=== PATIENT | male | born 1960 | race Caucasian/White ===

== ENCOUNTER 2023-05-12 09:20 | Outpatient (OUT) | payer OTHER, SELFPAY ==
[2023-05-12 10:06] LABS: Basophils Absolute Auto 0.1 10^3/uL (0.0-0.1); Basophils Percent Auto 0.9 % (0.2-2.0); Eosinophils Absolute Auto 0.1 10^3/uL (0.0-0.7); Eosinophils Percent Auto 0.7 % (0.9-7.0); Hematocrit 42.9 % (42.0-54.0); Hemoglobin 13.9 g/dL (14.0-18.0); Immature Granulocytes Abs Auto 0.09 10^3/uL (0.00-0.03); Immature Granulocytes Pct Auto 0.8 % (0.0-0.5); Lymphocytes Absolute Auto 1.5 10^3/uL (1.2-3.8); Lymphocytes Percent Auto 13.5 % (20.5-60.0); Mean Corpuscular HGB Conc 32.4 g/dL (29.9-35.2); Mean Corpuscular Volume 89.6 fL (80.0-94.0); Mean Platelet Volume 9.2 fL (9.5-13.5); Monocytes Absolute Auto 0.8 10^3/uL (0.3-0.8); Monocytes Percent Auto 7.4 % (1.7-12.0); Neutrophils Absolute Auto 8.8 10^3/uL (1.4-6.5); Neutrophils Percent Auto 76.7 % (43.0-75.0); Platelet Count 413 10^3/uL (150-450); Red Blood Count 4.79 10^6/uL (4.70-6.10); Red Cell Distribution Width 13.8 % (11.0-15.0); White Blood Count 11.4 10^3/uL (4.0-11.0)
[2023-05-12 10:31] LABS: Estimated Average Glucose 123 mg/dL; Glycohemoglobin A1C 5.9 % (4.5-6.2)
[2023-05-12 10:42] LABS: Alanine Aminotransferase 62 U/L (16-63); Albumin Globulin Ratio 1.1; Albumin Level 4.1 g/dL (3.4-5.0); Alkaline Phosphatase 146 U/L (46-116); Anion Gap 11.3; Aspartate Amino Transferase 29 U/L (15-37); BUN Creatinine Ratio 8.8; Bilirubin Total 0.5 mg/dL (0.2-1.0); Calcium 9.3 mg/dL (8.5-10.1); Carbon Dioxide 30.1 mmol/L (21.0-32.0); Chloride 94 mmol/L (98-107); Chol HDL Ratio 4.2; Cholesterol 245 mg/dL (<=200); Estimated GFR (African America >60 (>=60); Estimated GFR (Non-African Ame >60 (>=60); Free T3 2.04 pg/mL (2.18-3.98); Globulin 3.8 g/dL; Glucose 92 mg/dL (74-106); HDL Cholesterol 58 mg/dL (40-60); Potassium 4.4 mmol/L (3.5-5.1); Sodium 131 mmol/L (136-145); Total Protein 7.9 g/dL (6.4-8.2); Triglycerides 157 mg/dL (<=150); VLDL CHOLESTEROL 31.4 mg/dL
[2023-05-12 10:50] LABS: Prostate Specific Antigen Scrn 1.34 ng/mL (<=4.00)
[2023-05-12 20:26] LABS: Occult Blood Negative
== END 2023-05-12 09:21 | disposition home or self-care (01) ==
LOC: LAB 09:24
PROVIDERS: PCP Family Medicine; Visit Provider Family Medicine
DX: Z00.00 Encounter for general adult medical examination without abnormal findings (principal); E78.5 Hyperlipidemia, unspecified; R73.09 Other abnormal glucose; Z12.5 Encounter for screening for malignant neoplasm of prostate; Z12.12 Encounter for screening for malignant neoplasm of rectum; R06.00 Dyspnea, unspecified
CPT/HCPCS: 36415; 80053; 80061; 83036; 84436; 84443; 84481; 85025; G0103; G0328

== ENCOUNTER 2023-05-14 08:50 | Outpatient (OUT) | payer OTHER, SELFPAY ==
--- OUTSIDE RECORDS SUMMARY | 2023-05-14 09:04 | XMS_ITS | CCD ---
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 Role Phone RBUCE, DR GALO Primary Care Unavailable ALCIRA, TERI Admitting Unavailable WEST, DR AILYN Marlow Consulting Unavailable ALCIRA, TERI Attending Unavailable ZIEBER, DR ANTONIO Archibald Consulting Unavailable ALCIRA, TERI Consulting Unavailable BROWNY, DR GALO Admitting Unavailable HOY, DR GALO Attending Unavailable HOY, DR GALO Primary Care Unavailable HOY, DR GALO Consulting Unavailable HOY, DR GALO Admitting Unavailable HOY, DR GALO Attending Unavailable HOY, DR GALO Admitting Unavailable HOY, DR GALO Primary Care Unavailable HOY, DR GALO Attending Unavailable HOY, DR GALO Consulting Unavailable HOY, DR GALO Admitting Unavailable HOY, DR GALO Attending Unavailable HOY, DR GALO Consulting Unavailable HOY, DR GALO Primary Care Unavailable WEST, DR AILYN Marlow Consulting Unavailable HOY, DR GALO Admitting Unavailable HOY, DR GALO Attending Unavailable HOY, DR GALO Consulting Unavailable HOY, DR GALO Primary Care Unavailable HOY, DR GALO Admitting Unavailable HOY, DR GALO Attending Unavailable HOY, DR GALO Consulting Unavailable Problems Active Problems Problem Classification Problem Date Documented Da te Episodic/Chronic Chronic obstructive pulmonary disease and bronchiectasis (1 source) Bronchitis, not specified as acute or chronic; Translations: [BRONCHITIS NOT SPEC ACUTE/CHRON] Onset: 11-03-2020 Episodic Unclassified (3 sources) CONTACT W/AND (SUSP) EXPOS COVID-19; Translations: [CONTACT W/AND (SUSP) EXPOS COVID-19] Onset: 11-03-2020 Past or Other Problems Problem Classification Problem Date Documented Da te Episodic/Chronic Immunizations and screening for infectious disease (5 sources) Contact with and (suspected) exposure to other viral communicable diseases; Translations: [CONTCT EXPS OTH VIRL COMMUNICABL DZ] Onset: 02-01-2020 Episodic Other lower respiratory disease (1 source) Dyspnea, unspecified; Translations: [DYSPNEA UNSPECIFIED] Onset: 02-10-2020 Episodic Other lower respiratory disease (4 sources) Shortness of breath; Translations: [SHORTNESS OF BREATH] Onset: 02-03-2020 Episodic Pneumonia (except that caused by tuberculosis or sexually transmitted disease) (1 source) Pneumonia, unspecified organism; Translations: [PNEUMONIA UNSPECIFIED ORGANISM] Onset: 02-10-2020 Episodic Unclassified (1 source) CONTACT W/AND (SUSP) EXPOS COVID-19; Translations: [CONTACT W/AND (SUSP) EXPOS COVID-19] Onset: 10-24-2020 Results Test Name Value Interpretation Reference Range Facil ity Covid-19 PCR (CVDTBH)on 10-06 SARS-CoV-2 (COVID-19) RNA FAIZAN+probe Ql (Unsp spec) Not detected Normal NOT DETECTED [facility] Comment on above: Result Comment: This test is not yet approved or cleared by the [place] FDA. When there are no FDA-approved or cleared tests available, and other criteria are met, FDA can make tests available under an emergency access mechanism called an Emergency Use Authorization (EUA). The EUA for this test is supported by the [place] of Health and Human Service's (HHS's) declaration that circumstances exist to justify the emergency use of in vitro diagnostics for the detection and/or diagnosis of the virus that causes COVID-19. This EUA will remain in effect (meaning this test can be used) for the duration of the COVID-19 declaration justifying emergency of IVDs, unless it is terminated or revoked by FDA (after which the test may no longer be used). When diagnostic testing is negative, the possibility of a false negative should be considered in the context of a patient's recent exposures and the presence of clinical signs and symptoms consistent with SARS-CoV-2. Performed By: #### B SPORTS MEDICINE SPECIALIST, CMP, TROP #### [facility] [address] [place] [address] Katarina Nielsen SYMPTOMATIC COVID-19 ANTIGEN on 10-24-2020 EUA Statement SEE BELOW Normal [facility] Comment on above: Result Comment: This test has not been FDA cleared or approved, but has been authorized by the FDA under an Emergency Use Authorization (EUA) for use by authorized laboratories certified under CLIA that meet the requirements to perform moderate or high complexity testing. This test has been authorized only for the detection of proteins from SARS-CoV-2, not for any other viruses or pathogens. The emergency use of this test is authorized for the duration of the declaration that circumstances exist justifying the authorization of emergency use of in vitro diagnostic tests for detection and/or diagnosis of Covid-19 under section 564(b)(1) of the Act, 21 U.S.C. 360bbb-3(b)(1), unless the declaration is terminated or authorization is revoked sooner. Performed By: #### B SPORTS MEDICINE SPECIALIST CMP, TROP #### [facility] [address] [place] [address] Katarina Nielsen SARS-CoV-2 (COVID-19) RNA FAIZAN+probe Ql (Unsp spec) Negative Normal NEGATIVE [facility] Comment on above: Performed By: #### B SPORTS MEDICINE SPECIALIST, CMP, TROP #### [facility] [address] [place] [address] Katarina Nielsen BNPon 02-08-2020 Natriuretic peptide B (Bld) [Mass/Vol] 228.0 pg/mL Normal <=900.0 [facility] Comment on above: Performed By: #### B SPORTS MEDICINE SPECIALIST, CMP, TROP #### [facility] [address] [place] [address] Katarina Nielsen CBC AUTO DIFFon 02-08-2020 BASO # 0.1 103/ul Normal 0.0-0.1 [facility] Comment on above: Performed By: #### B SPORTS MEDICINE SPECIALIST, CMP, TROP #### [facility] [address] [place] [address] Katarina Buenrostroen Basophils/100 WBC (Bld) 0.7 % Normal 0.2-2.0 [facility] Comment on above: Performed By: #### B SPORTS MEDICINE SPECIALIST, CMP, TROP #### [facility] [address] [place] [address] Katarina Nielsen EO # 0.1 103/ul Normal 0.0-0.7 [facility] Comment on above: Performed By: #### B SPORTS MEDICINE SPECIALIST, CMP, TROP #### [facility] [address] [place] [address] Katarina Gia Eosinophils/100 WBC (Bld) 0.6 % Critically low 0.9-7.0 [facility] Comment on above: Performed By: #### B SPORTS MEDICINE SPECIALIST, CMP, TROP #### [facility] [address] [place] [address] Katarina Gia Erythrocyte distribution width (RBC) [Ratio] 14.0 % Normal 11.0-15.0 [facility] Comment on above: Performed By: #### B SPORTS MEDICINE SPECIALIST, CMP, TROP #### [facility] [address] [place] [address] Katarina Gia Hematocrit (Bld) [Volume fraction] 45.7 % Normal 42.0-54.0 [facility] Comment on above: Performed By: #### B SPORTS MEDICINE SPECIALIST, CMP, TROP #### [facility] [address] [place] [address] Katarina Gia Hemoglobin (Bld) [Mass/Vol] 15.1 g/dL Normal 14.0-18.0 [facility] Comment on above: Performed By: #### B SPORTS MEDICINE SPECIALIST, CMP, TROP #### [facility] [address] [place] [address] Katarina Gia IG # 0.02 10e3/ul Normal 0.00-0.03 [facility] Comment on above: Performed By: #### B SPORTS MEDICINE SPECIALIST, CMP, TROP #### [facility] [address] [place] [address] Katarina Gia IG % 0.2 % Normal 0.0-0.5 [facility] Comment on above: Performed By: #### B SPORTS MEDICINE SPECIALIST, CMP, TROP #### [facility] [address] [place] [address] Katarina Gia LYMPH # 1.7 103/ul Normal 1.2-3.8 [facility] Comment on above: Performed By: #### B SPORTS MEDICINE SPECIALIST, CMP, TROP #### [facility] [address] [place] [address] Katarina Gia Lymphocytes/100 WBC (Bld) 16.7 % Critically low 20.5-60.0 [facility] Comment on above: Performed By: #### B SPORTS MEDICINE SPECIALIST, CMP, TROP #### [facility] [address] [place] [address] Katarinavictoria Nielsen MANUAL DIFF REQ NO Normal [facility] Comment on above: Performed By: #### B SPORTS MEDICINE SPECIALIST, CMP, TROP #### [facility] [address] [place] [address] Katarinavictoria Nielsen MCH (RBC) [Entitic mass] 29.6 pg Normal 25.9-34.0 [facility] Comment on above: Performed By: #### B SPORTS MEDICINE SPECIALIST, CMP, TROP #### [facility] [address] [place] [address] Katarinavictoria Nielsen MCHC (RBC) [Mass/Vol] 33.0 g/dL Normal 29.9-35.2 [facility] Comment on above: Performed By: #### B SPORTS MEDICINE SPECIALIST, CMP, TROP #### [facility] [address] [place] [address] Katarinavictoria Nielsen MCV (RBC) [Entitic vol] 89.6 fL Normal 80.0-94.0 [facility] Comment on above: Performed By: #### B SPORTS MEDICINE SPECIALIST, CMP, TROP #### [facility] [address] [place] [address] Katarina Gia MONO # 1.2 103/ul Critically high 0.3-0.8 [facility] Comment on above: Performed By: #### B SPORTS MEDICINE SPECIALIST, CMP, TROP #### [facility] [address] [place] [address] Katarina Gia Monocytes/100 WBC (Bld) 11.4 % Normal 1.7-12.0 [facility] Comment on above: Performed By: #### B SPORTS MEDICINE SPECIALIST, CMP, TROP #### [facility] [address] [place] [address] Katarina Gia NEUT # 7.1 103/ul Critically high 1.4-6.5 [facility] Comment on above: Performed By: #### B SPORTS MEDICINE SPECIALIST, CMP, TROP #### [facility] [address] [place] [address] Katarina Nielsen Neutrophils/100 WBC (Bld) 70.4 % Normal 43.0-75.0 [facility] Comment on above: Performed By: #### B SPORTS MEDICINE SPECIALIST, CMP, TROP #### [facility] [address] [address] Katarina Nielsen Platelet mean volume (Bld) [Entitic vol] 9.5 fL Normal 9.5-13.5 [facility] Comment on above: Performed By: #### B SPORTS MEDICINE SPECIALIST, CMP, TROP #### [facility] [address] [address] Katarina Buenrostroen PLT 339 103/ul Normal 150-450 [facility] Comment on above: Performed By: #### B SPORTS MEDICINE SPECIALIST, CMP, TROP #### [facility] [address] [address] Katarina Gia RBC 5.10 106/ul Normal 4.70-6.10 [facility] Comment on above: Performed By: #### B SPORTS MEDICINE SPECIALIST, CMP, TROP #### [facility] [address] [address] Katarina Nielsen WBC 10.1 103/ul Normal 4.0-11.0 [facility] Comment on above: Performed By: #### B SPORTS MEDICINE SPECIALIST, CMP, TROP #### [facility] [address] [id number] Katarina Nielsen CTA CHEST WO W CONon 020 CTA CHEST WO W CON EXAMINATION: CTA CHEST WO W CON HISTORY: SHORTNESS OF BREATH with exertion COMPARISON: No relevant comparison available. TECHNIQUE: Multi-planar CT images were created with 100 mL Omnipaque 350 IV contrast. Axial, Coronal, and Sagittal images. Dose reduction techniques were achieved by using automated exposure control and/or adjustment of mA and/or kV according to patient size and/or use of iterative reconstruction technique. FINDINGS: VASCULATURE: No pulmonary embolism or abnormal opacity. LUNGS: Moderate fibrous stranding and patchy opacities within the left lung apex. PLEURA: No mass, effusion, or pneumothorax. VIKI: Calcified right hilar lymph nodes. MEDIASTINUM: Calcified subcarinal lymph nodes. CARDIAC: No enlargement, pericardial effusion, or pericardial thickening. AORTA: No aneurysm or dissection. CHEST WALL: No mass or axillary adenopathy. BONES: No bone lesion or fracture. LIMITED ABDOMEN: Small area of poorly defined early enhancement within the posterior right hepatic lobe, nonspecific but most suggestive of a flash-fill hemangioma. OTHER: Negative. IMPRESSION: 1. No pulmonary embolism. 2. Moderate infiltrates versus interstitial changes within the left lung apex. Follow-up CT imaging of the chest in 1-2 months is recommended to document clearing. Electronically authenticated by: ANTONIO REDD Date: 2020-02-08 14:04 Normal [facility] PROF 14(COMP METB)on 020 Albumin [Mass/Vol] 3.7 g/dL Normal 3.5-5.0 [facility] Comment on above: Performed By: #### B SPORTS MEDICINE SPECIALIST, CMP, TROP #### [facility] [address] [place] [address] Katarina Gia Albumin/Globulin [Mass ratio] 1.1 {ratio} Normal [facility] Comment on above: Performed By: #### B SPORTS MEDICINE SPECIALIST, CMP, TROP #### [facility] [address] [address] Katarina Gia ALP [Catalytic activity/Vol] 72 U/L Normal 38-126 [facility] Comment on above: Performed By: #### B SPORTS MEDICINE SPECIALIST, CMP, TROP #### [facility] [address] [id number] Katarina Gia ALT [Catalytic activity/Vol] 43 U/L Normal 21-72 [facility] Comment on above: Performed By: #### B SPORTS MEDICINE SPECIALIST, CMP, TROP #### [facility] [address] [id number] Katarina Gia Anion gap [Moles/Vol] 13.1 mmol/L Normal [facility] Comment on above: Performed By: #### B SPORTS MEDICINE SPECIALIST, CMP, TROP #### [facility] [address] [id number] Katarina Gia AST [Catalytic activity/Vol] 31 U/L Normal 17-59 [facility] Comment on above: Performed By: #### B SPORTS MEDICINE SPECIALIST, CMP, TROP #### [facility] [address] [id number] Katarina Gia Bilirubin [Mass/Vol] 0.5 mg/dL Normal 0.2-1.3 [facility] Comment on above: Performed By: #### B SPORTS MEDICINE SPECIALIST, CMP, TROP #### [facility] [address] [place] [address] Katarina Gia Calcium [Mass/Vol] 9.2 mg/dL Normal 8.4-10.2 [facility] Comment on above: Performed By: #### B SPORTS MEDICINE SPECIALIST, CMP, TROP #### [facility] [address] [place] [address] Katarina Gia Chloride [Moles/Vol] 96 mmol/L Critically low 98-107 [facility] Comment on above: Performed By: #### B SPORTS MEDICINE SPECIALIST, CMP, TROP #### [facility] [address] [place] [address] Katarina Gia CO2 [Moles/Vol] 27.0 mmol/L Normal 22.0-30.0 [facility] Comment on above: Performed By: #### B SPORTS MEDICINE SPECIALIST, CMP, TROP #### [facility] [address] [place] [address] Katarina Gia Creatinine [Mass/Vol] 0.88 mg/dL Normal 0.66-1.25 [facility] Comment on above: Performed By: #### B SPORTS MEDICINE SPECIALIST, CMP, TROP #### [facility] [address] [place], [place] [id number] Katarina Gia EGFR-AF [place] >60 Normal >=60 [facility] Comment on above: Performed By: #### B SPORTS MEDICINE SPECIALIST, CMP, TROP #### [facility] [address] [place] [address] Katarina Gia EGFR-NON AF [place] >60 Normal >=60 [facility] Comment on above: Performed By: #### B SPORTS MEDICINE SPECIALIST, CMP, TROP #### [facility] [address] [place] [address] Katarina Gia Globulin (S) [Mass/Vol] 3.5 g/dL Normal [facility] Comment on above: Performed By: #### B SPORTS MEDICINE SPECIALIST, CMP, TROP #### [facility] [address] [place] [address] Katarina Gia Glucose [Mass/Vol] 93 mg/dL Normal 74-106 [facility] Comment on above: Performed By: #### B SPORTS MEDICINE SPECIALIST, CMP, TROP #### [facility] [address] [address] Katarina Gia Potassium [Moles/Vol] 4.1 mmol/L Normal 3.4-5.0 [facility] Comment on above: Performed By: #### B SPORTS MEDICINE SPECIALIST, CMP, TROP #### [facility] [address] [place] [address] Katarina Gia Protein [Mass/Vol] 7.2 g/dL Normal 6.1-8.2 [facility] Comment on above: Performed By: #### B SPORTS MEDICINE SPECIALIST, CMP, TROP #### [facility] [address] [place] [address] Katarina Gia Sodium [Moles/Vol] 132 mmol/L Critically low 137-145 [facility] Comment on above: Performed By: #### B SPORTS MEDICINE SPECIALIST, CMP, TROP #### [facility] [address] [place] [address] Katarina Gia Urea nitrogen [Mass/Vol] 13.0 mg/dL Normal 9.0-20.0 [facility] Comment on above: Performed By: #### B SPORTS MEDICINE SPECIALIST, CMP, TROP #### [facility] [address] [place] [address] Katarina Gia Urea nitrogen/Creatinine [Mass ratio] 14.8 mg/mg Normal [facility] Comment on above: Performed By: #### B SPORTS MEDICINE SPECIALIST, CMP, TROP #### [facility] [address] [place], [place] [phone] Katarina Gia PROTIMEon 02-08-2020 INR Coag (PPP) [Relative time] 0.97 {INR} Normal [facility] Comment on above: Performed By: #### B SPORTS MEDICINE SPECIALIST, CMP, TROP #### [facility] [address] [place], [place] [phone] Katarina Gia INR GUIDELINES SEE BELOW Normal [facility] Comment on above: Result Comment: TEENA RED INR: 2.0 - 3.0 CONDITIONS NOT LISTED BELOW 2.5 - 3.5 FOR PROSTHETIC HEART VALVE REPLACEMENT 2.5 - 3.5 RECURRENT THROMBOSIS Performed By: #### B SPORTS MEDICINE SPECIALIST, CMP, TROP #### [facility] [address] [place] [address] Katarinavictoria Nielsen PT Coag (PPP) [Time] 10.3 s Normal 9.0-11.6 [facility] Comment on above: Performed By: #### B SPORTS MEDICINE SPECIALIST, CMP, TROP #### [facility] [address] [place], [place] [phone] Katarina Gia PT NORMAL PLEASE NOTE: NORMAL RANGE CHANGE 12-23-2013 DUE TO REAGENT LOT CHANGE Normal [facility] Comment on above: Performed By: #### B SPORTS MEDICINE SPECIALIST, CMP, TROP #### [facility] [address] [place], [place] [phone] Katarina Nielsen PTTon 02-08-2020 aPTT Coag (Bld) [Time] 27.2 s Normal 22.3-36.2 [facility] Comment on above: Performed By: #### B SPORTS MEDICINE SPECIALIST, CMP, TROP #### [facility] [address] [place] [address] Katarinavictoria Nielsen PTT NORMAL PLEASE NOTE: NORMAL RANGE CHANGE 03-01-2015 DUE TO REAGENT LOT CHANGE Normal [facility] Comment on above: Performed By: #### B SPORTS MEDICINE SPECIALIST, CMP, TROP #### [facility] [address] [place], [place] [id number] Katarina Nielsen Rapid Covid-19 PCRon 020 [employer] LDT Info SEE BELOW Normal [facility] Comment on above: Result Comment: This test is not yet approved or cleared by the [place] Food and Drug Administration (FDA) . This test was developed by [employer] [place] [place]. The performance characteristics of this test were validated by [facility]. The results are not intended to be used as the sole means for clinical diagnosis or patient management decisions. [facility] is authorized under Clinical Laboratory Improvement Amendments (CLIA) to perform high-complexity testing. When diagnostic testing is negative, the possibility of a false negative should be considered in the context of a patients recent exposures and the presence of clinical signs and symptoms consistent with SARS-CoV-2. Performed By: #### B SPORTS MEDICINE SPECIALIST, CMP, TROP #### [facility] [address] [place] [address] SARS-CoV-2 (COVID-19) RNA FAIZAN+probe Ql (Unsp spec) Not detected Normal NOT DETECTED [facility] Comment on above: Result Comment: . Performed By: #### B SPORTS MEDICINE SPECIALIST, CMP, TROP #### [facility] [address] [place], [place] [address] TROPONIN - Ion 02-08-2020 TROP <0.012 Normal <=0.034 [facility] Comment on above: Performed By: #### B SPORTS MEDICINE SPECIALIST, CMP, TROP #### [facility] [address] [place] [address] TROPONIN RANGE SEE BELOW Normal [facility] Comment on above: Result Comment: <0.0 34 ng/ml NEGATIVE 0.034-0.119 INDETERMINATE 0.120 AMI CUT OFF Performed By: #### B SPORTS MEDICINE SPECIALIST, CMP, TROP #### [facility] [address] [place] [address] [facility] <0.012 Normal <=0.034 [facility] Comment on above: Performed By: #### B SPORTS MEDICINE SPECIALIST, CMP, TROP #### [facility] [address] [place] [address] [facility] TROPONIN RANGE SEE BELOW Normal [facility] Comment on above: Result Comment: <0.0 34 ng/ml NEGATIVE 0.034-0.119 INDETERMINATE 0.120 AMI CUT OFF Performed By: #### B SPORTS MEDICINE SPECIALIST, CMP, TROP #### [facility] [address] [place], [place] [address] XR CHEST 1 Von 02-08-2020 XR CHEST 1 V EXAMINATION: XR CHES T 1 V HISTORY: SHORTNESS OF BREATH COMPARISON: 01/18/2016 TECHNIQUE: AP portable erect FINDINGS: LUNGS: No significant pulmonary parenchymal abnormalities. Stable hyperinflation VASCULATURE: No increased pulmonary vasculature. PLEURA: No pneumothorax, effusion, or pleural thickening. CARDIAC: No cardiomegaly or cardiac silhouette abnormality. MEDIASTINUM: No visible mass or adenopathy. BONES: No fracture or visible bone lesion. OTHER: EKG wires IMPRESSION: Hyperinflation, clear lungs Electronically authenticated by: AILYN ROSE Date: 2020-02-08 12:14 Normal [facility] BNPon 02-03-2020 Natriuretic peptide B (Bld) [Mass/Vol] 81.0 pg/mL Normal <=900.0 [facility] Comment on above: Performed By: #### C MP, T4, TSH, BNP, FT3 #### [facility] [address] [place] [address] Katarina Gia CBC AUTO DIFFon 02-03-2020 BASO # 0.1 103/ul Normal 0.0-0.1 [facility] Comment on above: Performed By: #### B SPORTS MEDICINE SPECIALIST, CMP, TROP #### [facility] [address] [place] [address] Katarina Gia Basophils/100 WBC (Bld) 0.9 % Normal 0.2-2.0 [facility] Comment on above: Performed By: #### B SPORTS MEDICINE SPECIALIST, CMP, TROP #### [facility] [address] [place] [address] Katarina Gia EO # 0.1 103/ul Normal 0.0-0.7 [facility] Comment on above: Performed By: #### B SPORTS MEDICINE SPECIALIST, CMP, TROP #### [facility] Laboratory [address] [place] [address] Katarina Gia Eosinophils/100 WBC (Bld) 0.9 % Normal 0.9-7.0 [facility] Comment on above: Performed By: #### B SPORTS MEDICINE SPECIALIST, CMP, TROP #### [facility] Laboratory [address] [place] [address] Katarinavictoria Nielsen Erythrocyte distribution width (RBC) [Ratio] 14.2 % Normal 11.0-15.0 [facility] Comment on above: Performed By: #### B SPORTS MEDICINE SPECIALIST, CMP, TROP #### [facility] Laboratory [address] [place] [address] Katarina Gia Hematocrit (Bld) [Volume fraction] 45.1 % Normal 42.0-54.0 [facility] Comment on above: Performed By: #### B SPORTS MEDICINE SPECIALIST, CMP, TROP #### [facility] Laboratory [address] [place], [place] [address] Katarina Gia Hemoglobin (Bld) [Mass/Vol] 14.3 g/dL Normal 14.0-18.0 [facility] Comment on above: Performed By: #### B SPORTS MEDICINE SPECIALIST, CMP, TROP #### [facility] Laboratory [address] [address] Katarina Gia IG # 0.04 10e3/ul Critically high 0.00-0.03 [facility] Comment on above: Performed By: #### B SPORTS MEDICINE SPECIALIST, CMP, TROP #### [facility] [address] [id number] Katarina Gia IG % 0.5 % Normal 0.0-0.5 [facility] Comment on above: Performed By: #### B SPORTS MEDICINE SPECIALIST, CMP, TROP #### [facility] [address] [address] Katarina Gia LYMPH # 1.9 103/ul Normal 1.2-3.8 [facility] Comment on above: Performed By: #### B SPORTS MEDICINE SPECIALIST, CMP, TROP #### [facility] [address] [address] Katarina Gia Lymphocytes/100 WBC (Bld) 24.5 % Normal 20.5-60.0 [facility] Comment on above: Performed By: #### B SPORTS MEDICINE SPECIALIST, CMP, TROP #### [facility] [address] [id number] Katarina Gia MANUAL DIFF REQ NO Normal [facility] Comment on above: Performed By: #### B SPORTS MEDICINE SPECIALIST, CMP, TROP #### [facility] [address] [address] Katarina Gia MCH (RBC) [Entitic mass] 28.6 pg Normal 25.9-34.0 [facility] Comment on above: Performed By: #### B SPORTS MEDICINE SPECIALIST, CMP, TROP #### [facility] [address] [address] Katarina Gia MCHC (RBC) [Mass/Vol] 31.7 g/dL Normal 29.9-35.2 [facility] Comment on above: Performed By: #### B SPORTS MEDICINE SPECIALIST, CMP, TROP #### [facility] [address] [place], [place] [address] Katarina Gia MCV (RBC) [Entitic vol] 90.2 fL Normal 80.0-94.0 [facility] Comment on above: Performed By: #### B SPORTS MEDICINE SPECIALIST, CMP, TROP #### [facility] [address], [place] [address] Katarina Gia MONO # 1.0 103/ul Critically high 0.3-0.8 [facility] Comment on above: Performed By: #### B SPORTS MEDICINE SPECIALIST, CMP, TROP #### [facility] [address] [place], [place] [id number] Katarina Gia Monocytes/100 WBC (Bld) 12.4 % Critically high 1.7-12.0 [facility] Comment on above: Performed By: #### B SPORTS MEDICINE SPECIALIST, CMP, TROP #### [facility] [address] [place], [place] [id number] Katarina Gia NEUT # 4.8 103/ul Normal 1.4-6.5 [facility] Comment on above: Performed By: #### B SPORTS MEDICINE SPECIALIST, CMP, TROP #### [facility] [address] [place], [place] [id number] Katarina Gia Neutrophils/100 WBC (Bld) 60.8 % Normal 43.0-75.0 [facility] Comment on above: Performed By: #### B SPORTS MEDICINE SPECIALIST, CMP, TROP #### [facility] [address] [place], [place] [id number] Katarina Gia Platelet mean volume (Bld) [Entitic vol] 9.3 fL Critically low 9.5-13.5 [facility] Comment on above: Performed By: #### B SPORTS MEDICINE SPECIALIST, CMP, TROP #### [facility] [address] [place], [place] [id number] Katarina Gia PLT 323 103/ul Normal 150-450 [facility] Comment on above: Performed By: #### B SPORTS MEDICINE SPECIALIST, CMP, TROP #### [facility] [address] [place], [place] [id number] Katarina Gia RBC 5.00 106/ul Normal 4.70-6.10 [facility] Comment on above: Performed By: #### B SPORTS MEDICINE SPECIALIST, CMP, TROP #### [facility] [address] [place], [place] [address] Katarinavictoria Nielsen WBC 7.9 103/ul Normal 4.0-11.0 [facility] Comment on above: Performed By: #### B SPORTS MEDICINE SPECIALIST, CMP, TROP #### [facility] [address] [place] [address] Katarinavictoria Nielsen FREE T3on 02-03-2020 Free T3 [Mass/Vol] 2.89 pg/mL Normal 2.77-5.27 [facility] [place] [facility] Comment on above: Performed By: #### C MP, T4, TSH, BNP, FT3 #### [facility] [address] [place], [place] [phone] Katarina Nielsen PROF 14(COMP METB)on 020 Albumin [Mass/Vol] 3.8 g/dL Normal 3.5-5.0 [facility] Comment on above: Performed By: #### C MP, T4, TSH, BNP, FT3 #### [facility] [address] [place] [address] Katarina Nielsen Albumin/Globulin [Mass ratio] 1.2 {ratio} Normal [facility] Comment on above: Performed By: #### C MP, T4, TSH, BNP, FT3 #### [facility] [address] [place], [place] [phone] Katarina Gia ALP [Catalytic activity/Vol] 73 U/L Normal 38-126 [facility] Comment on above: Performed By: #### C MP, T4, TSH, BNP, FT3 #### [facility] [address] [place] [address] Katarinavictoria Nielsen ALT [Catalytic activity/Vol] 52 U/L Normal 21-72 [facility] Comment on above: Performed By: #### C MP, T4, TSH, BNP, FT3 #### [facility] [address] [place], [place] [phone] Katarina Gia Anion gap [Moles/Vol] 8.6 mmol/L Normal [facility] Comment on above: Performed By: #### C MP, T4, TSH, BNP, FT3 #### [facility] [address] [place] [address] Katarina Gia AST [Catalytic activity/Vol] 35 U/L Normal 17-59 [facility] Comment on above: Performed By: #### C MP, T4, TSH, BNP, FT3 #### [facility] [address] [place] [address] Katarina Gia Bilirubin [Mass/Vol] 0.4 mg/dL Normal 0.2-1.3 [facility] Comment on above: Performed By: #### C MP, T4, TSH, BNP, FT3 #### [facility] [address] [place] [address] Katarina Gia Calcium [Mass/Vol] 8.9 mg/dL Normal 8.4-10.2 [facility] [place] [facility] Comment on above: Performed By: #### C MP, T4, TSH, BNP, FT3 #### [facility] [address] [place] [address] Katarina Gia Chloride [Moles/Vol] 101 mmol/L Normal 98-107 [facility] Comment on above: Performed By: #### C MP, T4, TSH, BNP, FT3 #### [facility] [address] [place] [address] Katarina Gia CO2 [Moles/Vol] 32.9 mmol/L Critically high 22.0-30.0 [facility] Comment on above: Performed By: #### C MP, T4, TSH, BNP, FT3 #### [facility] [address] [place] [address] Katarina Gia Creatinine [Mass/Vol] 0.81 mg/dL Normal 0.66-1.25 [facility] Comment on above: Performed By: #### C MP, T4, TSH, BNP, FT3 #### [facility] [address] [place] [address] Katarina Gia EGFR-AF [place] >60 Normal >=60 [facility] Comment on above: Performed By: #### C MP, T4, TSH, BNP, FT3 #### [facility] [address] [place], [place] [address] Katarina Gia EGFR-NON AF [place] >60 Normal >=60 [facility] Comment on above: Performed By: #### C MP, T4, TSH, BNP, FT3 #### [facility] [address] [place] [address] Katarina Gia Globulin (S) [Mass/Vol] 3.3 g/dL Normal [facility] Comment on above: Performed By: #### C MP, T4, TSH, BNP, FT3 #### [facility] [address] [place] [address] Katarina Gia Glucose [Mass/Vol] 95 mg/dL Normal 74-106 [facility] [place] [facility] Comment on above: Performed By: #### C MP, T4, TSH, BNP, FT3 #### [facility] [address] [place] [address] Katarina Gia Potassium [Moles/Vol] 4.5 mmol/L Normal 3.4-5.0 [facility] Comment on above: Performed By: #### C MP, T4, TSH, BNP, FT3 #### [facility] [address] [place] [address] Katarina Gia Protein [Mass/Vol] 7.1 g/dL Normal 6.1-8.2 [facility] [place] [facility] Comment on above: Performed By: #### C MP, T4, TSH, BNP, FT3 #### [facility] [address] [place] [address] Katarina Gia Sodium [Moles/Vol] 138 mmol/L Normal 137-145 [facility] [place] [facility] Comment on above: Performed By: #### C MP, T4, TSH, BNP, FT3 #### [facility] [address] [place] [address] Katarina Gia Urea nitrogen [Mass/Vol] 13.0 mg/dL Normal 9.0-20.0 [facility] Comment on above: Performed By: #### C MP, T4, TSH, BNP, FT3 #### [facility] [address] [place] [address] Katarina Gia Urea nitrogen/Creatinine [Mass ratio] 16.0 mg/mg Normal [facility] Comment on above: Performed By: #### C MP, T4, TSH, BNP, FT3 #### [facility] [address] [place] [address] Katarina Nielsen T4on 02-03-2020 T4 [Mass/Vol] 6.20 ug/dL Normal 5.53-11.00 [facility] Comment on above: Performed By: #### C MP, T4, TSH, BNP, FT3 #### [facility] [address] [place] [address] Katarina Nielsen TSHon 02-03-2020 TSH 5.662 uIU/mL Critically high 0.470-4.680 [facility] [place] [facility] Comment on above: Performed By: #### B SPORTS MEDICINE SPECIALIST, CMP, TROP #### [facility] [address] [place] [address] TSH RANGE SEE BELOW Normal [facility] Comment on above: Result Comment: <0.3 4 UIU/ml HYPERTHYROID 0.34-5.60 UIU/ml EUTHYROID >5.60 UIU/ml HYPOTHYROID Performed By: #### B SPORTS MEDICINE SPECIALIST, CMP, TROP #### [facility] [address] [place] [address] [facility] 02-02-2020 SARS-CoV-2 (COVID-19) RNA FAIZAN+probe Ql (Unsp spec) Not detected Normal Not Detected [facility] Comment on above: Result Comment: This nucleic acid amplification test was developed and its performance characteristics determined by [employer]. Nucleic acid amplification tests include PCR and TMA. This test has not been FDA cleared or approved. This test has been authorized by FDA under an Emergency Use Authorization (EUA). This test is only authorized for the duration of time the declaration that circumstances exist justifying the authorization of the emergency use of in vitro diagnostic tests for detection of SARS-CoV-2 virus and/or diagnosis of COVID-19 infection under section 564(b)(1) of the Act, 21 U.S.C. 360bbb-3(b) (1), unless the authorization is terminated or revoked sooner. When diagnostic testing is negative, the possibility of a false negative result should be considered in the context of a patient's recent exposures and the presence of clinical signs and symptoms consistent with COVID-19. An individual without symptoms of COVID-19 and who is not shedding SARS-CoV-2 virus would expect to have a negative (not detected) result in this assay. Performed By: #### B SPORTS MEDICINE SPECIALIST, CMP, TROP #### [facility] [address], [place] [address] Katarina Nielsen NM STRESS/REST MULTIon 01-30 NM STRESS/REST MULTI Patient: LISSY GATES Exam Date: 01/31/2020 : 1960 Gender:M Ordering : DR CLOVER BARRERA . Admission #: [id number] Family : Order #: [id number] CLICK HERE TO VIEW EXAM RADIOLOGY REPORT PROCEDURE: RADIONUCLIDE IMAGING STRESS/REST MULTI COMPARISON: None. INDICATIONS: Dyspnea TECHNIQUE: Exam Description: Stress/Rest one day protocol gated SPECT Rest Imagin.5 mCi Tc-99m Cardiolite IV on 01/31/2020 Stress Imaging 30.5 mCi Tc-99m Cardiolite IV on 01/31/2020 Exercise Protocol: Isaias Heart Rate (bpm): Rest: 85 Max: 147 PMHR: 91 Blood Pressure: Rest: 156/92 Max: 192/94 Exercise Time: Minutes: 7 Seconds: 00 Stage Reached: Stage: 3 Mets 10.1 Symptoms: shortness of breath Rest and peak stress ECG findings were normal and the exercise portion of the study was normal per attending physician Dr. Brooks . For more details please see separate cardiac stress test report. FINDINGS: QUALITY OF STUDY: Excellent. PERFUSION DEFECT: None. LOCATION: N/A SIZE: N/A. SEVERITY: N/A. TYPE: N/A. WALL MOTION: Normal. LV SIZE: Normal. 99 mL. TID / TCD: None; 0.7 LVEF: Normal. Calculated EF 62%. SUMMARY: Myocardial perfusion imaging study is NORMAL. CONCLUSION: 1. Decreased activity identified on rest images in the inferior wall, RCA distribution. 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 Dictated by: Ailyn Rose MD on 01/31/2020 at 14:28 Approved by: Ailyn Rose MD on 01/31/2020 at 14:31 Normal [facility] COVID-19 PCRon 01-21-2020 SARS-CoV-2 (COVID-19) RNA FAIZAN+probe Ql (Unsp spec) Not detected Normal Not Detected [facility] Comment on above: Result Comment: This nucleic acid amplification test was developed and its performance characteristics determined by [employer]. Nucleic acid amplification tests include PCR and TMA. This test has not been FDA cleared or approved. This test has been authorized by FDA under an Emergency Use Authorization (EUA). This test is only authorized for the duration of time the declaration that circumstances exist justifying the authorization of the emergency use of in vitro diagnostic tests for detection of SARS-CoV-2 virus and/or diagnosis of COVID-19 infection under section 564(b)(1) of the Act, 21 U.S.C. 360bbb-3(b) (1), unless the authorization is terminated or revoked sooner. When diagnostic testing is negative, the possibility of a false negative result should be considered in the context of a patient's recent exposures and the presence of clinical signs and symptoms consistent with COVID-19. An individual without symptoms of COVID-19 and who is not shedding SARS-CoV-2 virus would expect to have a negative (not detected) result in this assay. Performed By: #### C VDPCR #### [facility] [address] [place], [place] [id number] Katarina Nielsen Encounters Encounter Date Encounter Type Care Provider Facility Start: 10-24-2020 End: 10-25-[address] CLOVER BARRERA Facility:[facility] Start: 03-05-[address] CLOVER BARRERA Facility :[facility] Start: 02-08-2020 End: 02-08-[address] CLOVER BARRERA Facility:[facility] Start: 02-03-2020 End: 02-04-[address] CLOVER BARRERA Facility:[facility] Start: 02-01-2020 End: 02-02-[address] CLOVER BARRERA Facility:[facility] Start: 01-31-2020 End: 02-01-[address] CLOVER BARRERA Facility:[facility] Start: 01-20-2020 End: 01-21-[address] CLOVER BARRERA Facility:[facility] Payers Date Payer Category Payer Unknown [id number] 2.16.84 [id number] 1960 Unknown [id number] 2.16.84 [id number] 1960 Unknown [id number] 2.16.84 [id number] 1960 Unknown [id number] 2.16.84 [id number] 1960 Unknown [id number] 2.16.84 [id number] 1960 Unknown [id number] 2.16.84 [id number] 1960 Unknown [id number] 2.16.84 [id number] 1959 Private Health Insurance [id number] Self-pay 1959 Unknown [id number] Summary Purpose Family History No Family History Records Found Advance Directives No Advanced Directives Records Found Additional Source Comments (unrecognized sect ion and content) No Status Records Found INFORMATION SOURCE (unrecogn ized section and content) DATE CREATED AUTHOR 11/10/2020 [facility] FOR RECORDS PERTAINING TO PATIENTS WHO ARE OR HAVE BEEN ENROLLED IN A CHEMICAL DEPENDENCY/SUBSTANCEABUSE PROGRAM, SOME INFORMATION MAY BE OMITTED. This clinical summary was aggregated from multiple sources. Caution should be exercised in using it in the provision of clinical care. This summary normalizes information from multiple sources, and as a consequence, information in this document may materially change the coding, format and clinical context of patient data. In addition, data may be omitted in some cases. CLINICAL DECISIONS SHOULD BE BASED ON THE PRIMARY CLINICAL RECORDS. [facility] [employer] provides no warranty or guarantee of the accuracy or completeness of information in this document.
--- NOTE | 2023-05-14 15:41 | P.STRESS_ITS ---
Stress Test Stress Test Requesting physician: Morgan Regan Procedure: Exercise stress test General Information: Reason for Stress Test: Dyspnea Cardiac History and Risk Factors: Former smoker Resting 12 - Lead Electrocardiogram: Rate & rhythm: Normal sinus at a rate of 67. Campbell: Normal T-waves: Inverted in aVL ST-segments: Normal Prior EKG 02/08/2020: Appears similar to current study, including inverted T- waves in aVL Stress Test: Protocol: Isaias protocol was followed but was aborted prior to reaching target heart rate due to dyspnea. Exercise capacity: Poor exercise capacity. Total exercise time of 1 minutes 30 seconds reached Isaias stage 1 at 1.7MPH, 10% grade, & 4.6 METs. Blood pressure: Initial: 166/104, Maximum: 196/114 Rate & rhythm: Patient remained in sinus rhythm during the exercise and recovery portions of the study.? The maximum heart rate was 106, which was 67% of the maximum predicted heart rate 79. Multiple PVCs were noted. ST-segments & T-waves: There were no T-wave changes and no ST-segment changes when compared to the baseline EKG. Patient response/symptoms: Patient complained of dyspnea, but unclear if repro ducible of chief complaint Interpretation: Non-diagnostic exercise stress test as patient could not achieve target heart rate due to dyspnea. Clinical correlation required.
== END 2023-05-14 08:51 | disposition home or self-care (01) ==
LOC: CARD 08:51
PROVIDERS: PCP Family Medicine; Visit Provider Family Medicine
DX: R06.00 Dyspnea, unspecified (principal)
CPT/HCPCS: 93017

== ENCOUNTER 2023-06-11 06:13 | Outpatient (OUT) | payer OTHER, SELFPAY ==
--- NOTE | 2023-06-11 | PCN_ITS ---
CARDIAC STRESS TEST Requesting Physician: Procedure Date: 06/11/2023 INDICATION: Abnormal EKG. METHODS: After risks, benefits, and alternatives were explained, written informed consent was obtained. The patient was connected to the appropriate hemodynamic and electrocardiographic monitoring. Lexiscan 0.4 mg was infused intravenously. He was monitored for the standard duration and discharged in a stable state. There were no complications. FINDINGS: HEMODYNAMICS: Resting blood pressure was 182/108, decreasing to 164/98. Resting heart rate was 59, increasing to a maximum of 99 beats per minute. No symptoms were reported. ELECTROCARDIOGRAPHY: Rest EKG: Sinus bradycardia, 56 beats per minute, sinus arrhythmia, otherwise normal EKG. During infusion and recovery: No significant arrhythmias, no significant ST-T wave changes. FINAL IMPRESSIONS: 1. No ischemic EKG changes seen on Lexiscan Cardiolite stress test. 2. Significant resting hypertension. 3. Nuclear images are to be read, interpreted and reported in a separate dictation. GOUVERNEUR HEALTHEmily
--- OUTSIDE RECORDS SUMMARY | 2023-06-11 06:14 | XMS_ITS | CCD ---
Author Name Unknown Address [facility] [facility] [address] [place] [address] Organization [facility] Care Team Providers Care Residential Finish Carpenter Name Role Phone BRUCE, DR GALO Primary Care Unavailable ALCIRA, TERI [...] Attending Unavailable HOY, DR GALO Consulting Unavailable EL[place]HAW[place], EHAB Attending Unavailable Problems Active Problems Problem Classification Problem Date Documented Date Episodic/Chronic Chronic obstructive pulmonary disease and bronchiectasis (1 source) Bronchitis, not specified as acute or chronic; Translations: [BRONCHITIS NOT SPEC ACUTE/CHRON] Onset: 11-03-2020 Episodic Essential hypertension (2 sources) Essential (primary) hypertension; Translations: [Essential (primary) hypertension] Onset: 05-26-2023 Chronic Other lower respiratory disease (2 sources) Other forms of dyspnea; Translations: [Other forms of dyspnea] Onset: 05-26-2023 Episodic Other screening for suspected conditions (not mental disorders or infectious disease) (2 sources) Abnormal electrocardiogram [ECG] [EKG]; Translations: [Abnormal electrocardiogram (ECG) (EKG)] Onset: 05-26-2023 Episodic Unclassified (3 sources) CONTACT W/AND (SUSP) [...] Name Value Interpretation Reference Range Facil ity Office Visiton 05-26-2023 Follow-up visit [id number] Lissy Samuel 1960 M Date Provider Department Center 05/26/2023 [id number], EHAB CARD [facility] Family History Problem Relation Age of Onset No Known Problems Mother No Known Problems Father Coronary artery disease Father's Brother Family Status - Relation Status Age at Mother Father Father's Brother Level of Service:[address] [place] OFFICE/OUTPATIENT NEW MODERATE MDM 45 MINUTES Normal [facility] Covid-19 PCR (CVDTB)on 10-06 SARS-CoV-2 (COVID-19) RNA FAIZAN+probe Ql (Unsp spec) Not detected Normal NOT DETECTED [facility] Comment on above: Result Comment: This test is not yet approved or cleared by the [place] FDA. When there are no FDA-approved or cleared tests available, and other criteria are met, FDA can make tests available under an emergency access mechanism called an Emergency Use Authorization (EUA). The EUA for this test is supported by the [place] of Health and Human Service's (HHS's) declaration [...] consistent with SARS-CoV-2. Performed By: #### B NUT PACKER, CMP, TROP #### [facility] [address] [place] [address] Katarina Nielsen SYMPTOMATIC COVID-19 ANTIGEN on 10-24-2020 EUA Statement SEE BELOW Normal [facility] Comment on above: Result Comment: This [...] is revoked sooner. Performed By: #### B NUT PACKER, CMP, TROP #### [facility] [address] [place] [address] Katarina Gia SARS-CoV-2 (COVID-19) RNA FAIZAN+probe Ql (Unsp spec) Negative Normal NEGATIVE [facility] Comment on above: Performed By: #### B NUT PACKER, CMP, TROP #### [facility] [address] [place] [address] Katarina Nielsen BNPon 02-08-2020 Natriuretic peptide B (Bld) [Mass/Vol] 228.0 pg/mL Normal <=900.0 [facility] Comment on above: Performed By: #### B NUT PACKER, CMP, TROP #### [facility] [address] [place] [address] Katarina Gia CBC AUTO DIFFon 02-08-2020 BASO # 0.1 103/ul Normal 0.0-0.1 [facility] Comment on above: Performed By: #### B NUT PACKER, CMP, TROP #### [facility] [address] [place] [address] Katarina Gia Basophils/100 WBC (Bld) 0.7 % Normal 0.2-2.0 [facility] Comment on above: Performed By: #### B NUT PACKER, CMP, TROP #### [facility] [address] [place] [address] Katarina Gia EO # 0.1 103/ul Normal 0.0-0.7 [facility] Comment on above: Performed By: #### B NUT PACKER, CMP, TROP #### [facility] [address] [place] [address] Katarina Gia Eosinophils/100 WBC (Bld) 0.6 % Critically low 0.9-7.0 [facility] Comment on above: Performed By: #### B NUT PACKER, CMP, TROP #### [facility] [address] [place] [address] Katarina Gia Erythrocyte distribution width (RBC) [Ratio] 14.0 % Normal 11.0-15.0 [facility] Comment on above: Performed By: #### B NUT PACKER, CMP, TROP #### [facility] [address] [place] [address] Katarina Gia Hematocrit (Bld) [Volume fraction] 45.7 % Normal 42.0-54.0 [facility] Comment on above: Performed By: #### B NUT PACKER, CMP, TROP #### [facility] [address] [place] [address] Katarina Gia Hemoglobin (Bld) [Mass/Vol] 15.1 g/dL Normal 14.0-18.0 [facility] Comment on above: Performed By: #### B NUT PACKER, CMP, TROP #### [facility] [address] [place], [place] [address] Katarina Gia IG # 0.02 10e3/ul Normal 0.00-0.03 [facility] Comment on above: Performed By: #### B NUT PACKER, CMP, TROP #### [facility] [address] [place] [id number] Katarina Gia IG % 0.2 % Normal 0.0-0.5 [facility] Comment on above: Performed By: #### B NUT PACKER, CMP, TROP #### [facility] [address] [place] [id number] Katarina Gia LYMPH # 1.7 103/ul Normal 1.2-3.8 [facility] Comment on above: Performed By: #### B NUT PACKER, CMP, TROP #### [facility] [address] [id number] Katarina Gia Lymphocytes/100 WBC (Bld) 16.7 % Critically low 20.5-60.0 [facility] Comment on above: Performed By: #### B NUT PACKER, CMP, TROP #### [facility] [address] [place] [id number] Katarina Gia MANUAL DIFF REQ NO Normal [facility] [place] [facility] Comment on above: Performed By: #### B NUT PACKER, CMP, TROP #### [facility] [address] [id number] Katarina Gia MCH (RBC) [Entitic mass] 29.6 pg Normal 25.9-34.0 [facility] Comment on above: Performed By: #### B NUT PACKER, CMP, TROP #### [facility] [address] [id number] Katarina Gia MCHC (RBC) [Mass/Vol] 33.0 g/dL Normal 29.9-35.2 [facility] Comment on above: Performed By: #### B NUT PACKER, CMP, TROP #### [facility] [address] [id number] Katarina Gia MCV (RBC) [Entitic vol] 89.6 fL Normal 80.0-94.0 [facility] Comment on above: Performed By: #### B NUT PACKER, CMP, TROP #### [facility] [address] [place] [address] Katarina Gia MONO # 1.2 103/ul Critically high 0.3-0.8 [facility] [place] [facility] Comment on above: Performed By: #### B NUT PACKER, CMP, TROP #### [facility] [address] [place] [address] Katarina Gia Monocytes/100 WBC (Bld) 11.4 % Normal 1.7-12.0 [facility] Comment on above: Performed By: #### B NUT PACKER, CMP, TROP #### [facility] [address] [place] [address] Katarina Gia NEUT # 7.1 103/ul Critically high 1.4-6.5 [facility] [place] [facility] Comment on above: Performed By: #### B NUT PACKER, CMP, TROP #### [facility] [address] [place] [address] Katarina Gia Neutrophils/100 WBC (Bld) 70.4 % Normal 43.0-75.0 [facility] Comment on above: Performed By: #### B NUT PACKER, CMP, TROP #### [facility] [address] [place], [place] [id number] Katarina Gia Platelet mean volume (Bld) [Entitic vol] 9.5 fL Normal 9.5-13.5 [facility] Comment on above: Performed By: #### B NUT PACKER, CMP, TROP #### [facility] [address] [place] [address] Katarina Gia PLT 339 103/ul Normal 150-450 [facility] Comment on above: Performed By: #### B NUT PACKER, CMP, TROP #### [facility] [address] [place], [place] [id number] Katarina Gia RBC 5.10 106/ul Normal 4.70-6.10 [facility] Comment on above: Performed By: #### B NUT PACKER, CMP, TROP #### [facility] [address] [place] [address] Katarina Gia WBC 10.1 103/ul Normal 4.0-11.0 [facility] Comment on above: Performed By: #### B NUT PACKER, CMP, TROP #### [facility] [address] [place], [place] [address] Katarina Gia CTA CHEST WO W CONon 020 CTA [...] by: ANTONIO REDD Date: 2020-02-08 14:04 Normal [facility] PROF 14(COMP METB)on 020 Albumin [Mass/Vol] 3.7 g/dL Normal 3.5-5.0 [facility] Comment on above: Performed By: #### B NUT PACKER, CMP, TROP #### [facility] [address] [place], [place] [address] Katarina Nielsen Albumin/Globulin [Mass ratio] 1.1 {ratio} Normal [facility] Comment on above: Performed By: #### B NUT PACKER, CMP, TROP #### [facility] [address] [place], [place] [address] Katarina Gia ALP [Catalytic activity/Vol] 72 U/L Normal 38-126 [facility] Comment on above: Performed By: #### B NUT PACKER, CMP, TROP #### [facility] [address] [place] [address] Katarina Gia ALT [Catalytic activity/Vol] 43 U/L Normal 21-72 [facility] Comment on above: Performed By: #### B NUT PACKER, CMP, TROP #### [facility] [address] [place] [address] Katarina Gia Anion gap [Moles/Vol] 13.1 mmol/L Normal [facility] Comment on above: Performed By: #### B NUT PACKER, CMP, TROP #### [facility] [address] [place] [address] Katarina Gia AST [Catalytic activity/Vol] 31 U/L Normal 17-59 [facility] Comment on above: Performed By: #### B NUT PACKER, CMP, TROP #### [facility] [address] [place] [address] Katarina Gia Bilirubin [Mass/Vol] 0.5 mg/dL Normal 0.2-1.3 [facility] Comment on above: Performed By: #### B NUT PACKER, CMP, TROP #### [facility] [address] [place] [address] Katarina Gia Calcium [Mass/Vol] 9.2 mg/dL Normal 8.4-10.2 [facility] Comment on above: Performed By: #### B NUT PACKER, CMP, TROP #### [facility] [address] [place] [address] Katarina Gia Chloride [Moles/Vol] 96 mmol/L Critically low 98-107 [facility] Comment on above: Performed By: #### B NUT PACKER, CMP, TROP #### [facility] [address] [place] [address] Katarina Gia CO2 [Moles/Vol] 27.0 mmol/L Normal 22.0-30.0 [facility] Comment on above: Performed By: #### B NUT PACKER, CMP, TROP #### [facility] [address] [place], [place] [id number] Katarina Gia Creatinine [Mass/Vol] 0.88 mg/dL Normal 0.66-1.25 [facility] Comment on above: Performed By: #### B NUT PACKER, CMP, TROP #### [facility] [address] [place] [id number] Katarina Gia EGFR-AF [place] >60 Normal >=60 [facility] Comment on above: Performed By: #### B NUT PACKER, CMP, TROP #### [facility] [address] [place] [id number] Katarina Gia EGFR-NON AF [place] >60 Normal >=60 [facility] Comment on above: Performed By: #### B NUT PACKER, CMP, TROP #### [facility] [address] [place], [place] [id number] Katarina Gia Globulin (S) [Mass/Vol] 3.5 g/dL Normal [facility] Comment on above: Performed By: #### B NUT PACKER, CMP, TROP #### [facility] [address] [place] [address] Katarina Gia Glucose [Mass/Vol] 93 mg/dL Normal 74-106 [facility] Comment on above: Performed By: #### B NUT PACKER, CMP, TROP #### [facility] [address] [place] [address] Katarina Gia Potassium [Moles/Vol] 4.1 mmol/L Normal 3.4-5.0 [facility] Comment on above: Performed By: #### B NUT PACKER, CMP, TROP #### [facility] [address] [place], [place] [id number] Katarina Gia Protein [Mass/Vol] 7.2 g/dL Normal 6.1-8.2 [facility] Comment on above: Performed By: #### B NUT PACKER, CMP, TROP #### [facility] [address] [place] [address] Katarina Gia Sodium [Moles/Vol] 132 mmol/L Critically low 137-145 [facility] Comment on above: Performed By: #### B NUT PACKER, CMP, TROP #### [facility] [address] [place], [place] [id number] Katarina Gia Urea nitrogen [Mass/Vol] 13.0 mg/dL Normal 9.0-20.0 [facility] Comment on above: Performed By: #### B NUT PACKER, CMP, TROP #### [facility] [address] [place] [address] Katarinavictoria Buenrostroen Urea nitrogen/Creatinin e [Mass ratio] 14.8 mg/mg Normal [facility] Comment on above: Performed By: #### B NUT PACKER, CMP, TROP #### [facility] [address] [place] [address] Katarina Gia PROTIMEon 02-08-2020 INR Coag (PPP) [Relative time] 0.97 {INR} Normal [facility] Comment on above: Performed By: #### B NUT PACKER, CMP, TROP #### [facility] [address] [place] [address] Katarina Gia INR GUIDELINES SEE BELOW Normal [facility] Comment on above: Result Comment: TEENA RED INR: 2.0 - 3.0 CONDITIONS NOT LISTED BELOW 2.5 - 3.5 FOR PROSTHETIC HEART VALVE REPLACEMENT 2.5 - 3.5 RECURRENT THROMBOSIS Performed By: #### B NUT PACKER, CMP, TROP #### [facility] [address] [place] [address] Katarina Gia PT Coag (PPP) [Time] 10.3 s Normal 9.0-11.6 [facility] Comment on above: Performed By: #### B NUT PACKER, CMP, TROP #### [facility] [address] [place] [address] Katarina Gia PT NORMAL PLEASE NOTE: NORMAL RANGE CHANGE 12-23-2013 DUE TO REAGENT LOT CHANGE Normal [facility] Comment on above: Performed By: #### B NUT PACKER, CMP, TROP #### [facility] [address] [place], [place] [id number] Katarina Gia PTTon 02-08-2020 aPTT Coag (Bld) [Time] 27.2 s Normal 22.3-36.2 [facility] Comment on above: Performed By: #### B NUT PACKER, CMP, TROP #### [facility] [address] [place] [address] Katarina Gia PTT NORMAL PLEASE NOTE: NORMAL RANGE CHANGE 03-01-2015 DUE TO REAGENT LOT CHANGE Normal [facility] Comment on above: Performed By: #### B NUT PACKER, CMP, TROP #### [facility] [address] [place] [address] Katarina Nielsen Rapid Covid-19 PCRon 020 [employer] LDT Info SEE BELOW Normal [facility] Comment on above: Result Comment: This test is not yet approved or cleared by the [place] Food and Drug Administration (FDA) . This test was developed by [employer]. The performance characteristics of this test were validated by [facility]. The results are not intended to be used as the sole means for clinical diagnosis or patient management decisions. [facility] is authorized under Clinical Laboratory Improvement Amendments (CLIA) to perform high-complexity testing. When diagnostic testing is negative, the possibility of a false negative should be considered in the context of a patients recent exposures and the presence of clinical signs and symptoms consistent with SARS-CoV-2. Performed By: #### B NUT PACKER, CMP, TROP #### [facility] [address] [place] [address] Katarina Nielsen SARS-CoV-2 (COVID-19) RNA FAIZAN+probe Ql (Unsp spec) Not detected Normal NOT DETECTED [facility] Comment on above: Result Comment: . Performed By: #### B NUT PACKER, CMP, TROP #### [facility] [address] [place] [address] Katarina Nielsen TROPONIN - Ion 02-08-2020 TROP <0.012 Normal <=0.034 [facility] Comment on above: Performed By: #### B NUT PACKER, CMP, TROP #### [facility] [address] [place] [address] Katarina Nielsen TROPONIN RANGE SEE BELOW Normal [facility] Comment on above: Result Comment: <0.0 34 ng/ml NEGATIVE 0.034-0.119 INDETERMINATE 0.120 AMI CUT OFF Performed By: #### B NUT PACKER, CMP, TROP #### [facility] [address] [place] [address] Katarina Gia TROP <0.012 Normal <=0.034 [facility] Comment on above: Performed By: #### B NUT PACKER, CMP, TROP #### [facility] [address] [place], [place] [address] Katarinavictoria Buenrostroen TROPONIN RANGE SEE BELOW Normal [facility] Comment on above: Result Comment: <0.0 34 ng/ml NEGATIVE 0.034-0.119 INDETERMINATE 0.120 AMI CUT OFF Performed By: #### B NUT PACKER, CMP, TROP #### [facility] [address] [place], [place] [address] Katarinavictoria Nielsen XR CHEST 1 Von 02-08-2020 XR CHEST 1 V EXAMINATION: XR CHEST 1 V HISTORY: SHORTNESS OF BREATH COMPARISON: [...] AILYN ROSE Date: 2020-02-08 12:14 Normal [facility] BNPon 02-03-2020 Natriuretic peptide B (Bld) [Mass/Vol] 81.0 pg/mL Normal <=900.0 [facility] Comment on above: Performed By: #### C MP, T4, TSH, BNP, FT3 #### [facility] [address] [place] [id number] Katarina Nielsen CBC AUTO DIFFon 02-03-2020 BASO # 0.1 103/ul Normal 0.0-0.1 [facility] Comment on above: Performed By: #### B NUT PACKER, CMP, TROP #### [facility] [address] [place], [place] [address] Katarina Nielsen Basophils/100 WBC (Bld) 0.9 % Normal 0.2-2.0 [facility] Comment on above: Performed By: #### B NUT PACKER, CMP, TROP #### [facility] [address] [place] [id number] Katarina Gia EO # 0.1 103/ul Normal 0.0-0.7 [facility] Comment on above: Performed By: #### B NUT PACKER, CMP, TROP #### [facility] [address] [place] [address] Katarina Gia Eosinophils/100 WBC (Bld) 0.9 % Normal 0.9-7.0 [facility] Comment on above: Performed By: #### B NUT PACKER, CMP, TROP #### [facility] [address] [place] [address] Katarina Gia Erythrocyte distribution width (RBC) [Ratio] 14.2 % Normal 11.0-15.0 [facility] Comment on above: Performed By: #### B NUT PACKER, CMP, TROP #### [facility] [address] [place] [address] Katarina Gia Hematocrit (Bld) [Volume fraction] 45.1 % Normal 42.0-54.0 [facility] Comment on above: Performed By: #### B NUT PACKER, CMP, TROP #### [facility] [address] [place] [address] Katarina Gia Hemoglobin (Bld) [Mass/Vol] 14.3 g/dL Normal 14.0-18.0 [facility] Comment on above: Performed By: #### B NUT PACKER, CMP, TROP #### [facility] [address] [place] [address] Katarina Gia IG # 0.04 10e3/ul Critically high 0.00-0.03 [facility] Comment on above: Performed By: #### B NUT PACKER, CMP, TROP #### [facility] [address] [place] [address] Katarina Gia IG % 0.5 % Normal 0.0-0.5 [facility] Comment on above: Performed By: #### B NUT PACKER, CMP, TROP #### [facility] [address] [place] [address] Katarina Gia LYMPH # 1.9 103/ul Normal 1.2-3.8 [facility] Comment on above: Performed By: #### B NUT PACKER, CMP, TROP #### [facility] [address] [place] [address] Katarina Gia Lymphocytes/100 WBC (Bld) 24.5 % Normal 20.5-60.0 [facility] Comment on above: Performed By: #### B NUT PACKER, CMP, TROP #### [facility] [address] [place] [address] Katarina Gia MANUAL DIFF REQ NO Normal [facility] [place] [facility] Comment on above: Performed By: #### B NUT PACKER, CMP, TROP #### [facility] [address] [place] [address] Katarinavictoria Nielsen MCH (RBC) [Entitic mass] 28.6 pg Normal 25.9-34.0 [facility] Comment on above: Performed By: #### B NUT PACKER, CMP, TROP #### [facility] [address] [place] [address] Katarinavictoria Nielsen MCHC (RBC) [Mass/Vol] 31.7 g/dL Normal 29.9-35.2 [facility] Comment on above: Performed By: #### B NUT PACKER, CMP, TROP #### [facility] [address] [place] [address] Katarinavictoria Nielsen MCV (RBC) [Entitic vol] 90.2 fL Normal 80.0-94.0 [facility] Comment on above: Performed By: #### B NUT PACKER, CMP, TROP #### [facility] [address] [place] [address] Katarina Gia MONO # 1.0 103/ul Critically high 0.3-0.8 [facility] [place] [facility] Comment on above: Performed By: #### B NUT PACKER, CMP, TROP #### [facility] [address] [place] [address] Katarinavictoria Nielsen Monocytes/100 WBC (Bld) 12.4 % Critically high 1.7-12.0 [facility] Comment on above: Performed By: #### B NUT PACKER, CMP, TROP #### [facility] [address] [place] [address] Katarina Gia NEUT # 4.8 103/ul Normal 1.4-6.5 [facility] Comment on above: Performed By: #### B NUT PACKER, CMP, TROP #### [facility] [address] [place], [place] [address] Katarina Nielsen Neutrophils/100 WBC (Bld) 60.8 % Normal 43.0-75.0 [facility] Comment on above: Performed By: #### B NUT PACKER, CMP, TROP #### [facility] [address] [place] [id number] Katarinavictoria Nielsen Platelet mean volume (Bld) [Entitic vol] 9.3 fL Critically low 9.5-13.5 [facility] Comment on above: Performed By: #### B NUT PACKER, CMP, TROP #### [facility] [address] [place], [place] [address] Katarina Gia PLT 323 103/ul Normal 150-450 [facility] Comment on above: Performed By: #### B NUT PACKER, CMP, TROP #### [facility] [address] [place], [place] [address] Katarinavictoria Nielsen RBC 5.00 106/ul Normal 4.70-6.10 [facility] Comment on above: Performed By: #### B NUT PACKER, CMP, TROP #### [facility] [address] [place], [place] [address] Katarinavictoria Nielsen WBC 7.9 103/ul Normal 4.0-11.0 [facility] Comment on above: Performed By: #### B NUT PACKER, CMP, TROP #### [facility] [address] [place], [place] [address] Katarina Nielsen FREE T3on 02-03-2020 Free T3 [Mass/Vol] 2.89 pg/mL Normal 2.77-5.27 [facility] Comment on above: Performed By: #### C MP, T4, TSH, BNP, FT3 #### [facility] [address] [place], [place] [id number] Katarina Nielsen PROF 14(COMP METB)on 020 Albumin [Mass/Vol] 3.8 g/dL Normal 3.5-5.0 [facility] Comment on above: Performed By: #### C MP, T4, TSH, BNP, FT3 #### [facility] [address] [place], [place] [id number] Katarina Gia Albumin/Globulin [Mass ratio] 1.2 {ratio} Normal [facility] Comment on above: Performed By: #### C MP, T4, TSH, BNP, FT3 #### [facility] [address] [place] [address] Katarina Gia ALP [Catalytic activity/Vol] 73 U/L Normal 38-126 [facility] Comment on above: Performed By: #### C MP, T4, TSH, BNP, FT3 #### [facility] [address] [place] [address] Katarina Gia ALT [Catalytic activity/Vol] 52 U/L Normal 21-72 [facility] Comment on above: Performed By: #### C MP, T4, TSH, BNP, FT3 #### [facility] [address] [place] [address] Katarina Gia Anion gap [Moles/Vol] 8.6 mmol/L Normal [facility] Comment on above: Performed By: #### C MP, T4, TSH, BNP, FT3 #### [facility] [address] [place] [address] Katarina Gia AST [Catalytic activity/Vol] 35 U/L Normal 17-59 [facility] Comment on above: Performed By: #### C MP, T4, TSH, BNP, FT3 #### [facility] [address] [place] [address] Katarina Gia Bilirubin [Mass/Vol] 0.4 mg/dL Normal 0.2-1.3 [facility] Comment on above: Performed By: #### C MP, T4, TSH, BNP, FT3 #### [facility] [address] [place] [address] Katarina Gia Calcium [Mass/Vol] 8.9 mg/dL Normal 8.4-10.2 [facility] Comment on above: Performed By: #### C MP, T4, TSH, BNP, FT3 #### [facility] [address] [place] [address] Katarina Gia Chloride [Moles/Vol] 101 mmol/L Normal 98-107 [facility] Comment on above: Performed By: #### C MP, T4, TSH, BNP, FT3 #### [facility] [address] [place] [address] Katarina Gia CO2 [Moles/Vol] 32.9 mmol/L Critically high 22.0-30.0 [facility] Comment on above: Performed By: #### C MP, T4, TSH, BNP, FT3 #### [facility] [address] [place] [address] Katarina Gia Creatinine [Mass/Vol] 0.81 mg/dL Normal 0.66-1.25 [facility] Comment on above: Performed By: #### C MP, T4, TSH, BNP, FT3 #### [facility] [address] [place] [address] Katarina Gia EGFR-AF [place] >60 Normal >=60 [facility] Comment on above: Performed By: #### C MP, T4, TSH, BNP, FT3 #### [facility] [address] [place] [address] Katarina Gia EGFR-NON AF [place] >60 Normal >=60 [facility] Comment on above: Performed By: #### C MP, T4, TSH, BNP, FT3 #### [facility] [address] [place] [address] Katarina Gia Globulin (S) [Mass/Vol] 3.3 g/dL Normal [facility] Comment on above: Performed By: #### C MP, T4, TSH, BNP, FT3 #### [facility] [address] [place] [address] Katarina Gia Glucose [Mass/Vol] 95 mg/dL Normal 74-106 [facility] Comment on above: Performed By: #### C MP, T4, TSH, BNP, FT3 #### [facility] [address] [place] [address] Katarina Gia Potassium [Moles/Vol] 4.5 mmol/L Normal 3.4-5.0 [facility] Comment on above: Performed By: #### C MP, T4, TSH, BNP, FT3 #### [facility] [address] [place] [address] Katarina Gia Protein [Mass/Vol] 7.1 g/dL Normal 6.1-8.2 [facility] Comment on above: Performed By: #### C MP, T4, TSH, BNP, FT3 #### [facility] [address] [place] [address] Katarina Gia Sodium [Moles/Vol] 138 mmol/L Normal 137-145 [facility] Comment on above: Performed By: #### C MP, T4, TSH, BNP, FT3 #### [facility] [address] [place] [address] Katarina Gia Urea nitrogen [Mass/Vol] 13.0 mg/dL Normal 9.0-20.0 [facility] Comment on above: Performed By: #### C MP, T4, TSH, BNP, FT3 #### [facility] [address] [place] [address] Katarina Gia Urea nitrogen/Creatinin e [Mass ratio] 16.0 mg/mg Normal [facility] Comment on above: Performed By: #### C MP, T4, TSH, BNP, FT3 #### [facility] [address] [place] [address] Katarinavictoria Buenrostroen T4on 02-03-2020 T4 [Mass/Vol] 6.20 ug/dL Normal 5.53-11.00 [facility] Comment on above: Performed By: #### C MP, T4, TSH, BNP, FT3 #### [facility] [address] [place] [address] Katarina Gia TSHon 02-03-2020 TSH 5.662 uIU/mL Critically high 0.470-4.680 [facility] Comment on above: Performed By: #### B NUT PACKER, CMP, TROP #### [facility] [address] [place] [address] Katarina Gia TSH RANGE SEE BELOW Normal [facility] Comment on above: Result Comment: <0.3 4 UIU/ml HYPERTHYROID 0.34-5.60 UIU/ml EUTHYROID >5.60 UIU/ml HYPOTHYROID Performed By: #### B NUT PACKER, CMP, TROP #### [facility] [address] [place], [place] [address] Katarina Nielsen COVID-19 PCRon 02-02-2020 SARS-CoV-2 (COVID-19) RNA FAIZAN+probe Ql (Unsp spec) Not detected Normal Not Detected [facility] Comment on above: Result Comment: This nucleic acid amplification test was developed and its performance characteristics determined by [employer]. Nucleic acid amplification tests include PCR and [...] in this assay. Performed By: #### B NUT PACKER, CMP, TROP #### [facility] [address] [place], [place] [address] Katarina Nielsen NM STRESS/REST MULTIon 01-30 NM STRESS/REST MULTI Patient: LISSY SAMUEL Exam Date: 01/31/2020 : 1960 Gender:M Ordering : DR CLOVER REGAN . Admission #: [id number] Family : Order #: [id number] CLICK HERE TO VIEW EXAM RADIOLOGY REPORT [...] MD on 01/31/2020 at 14:31 Normal [facility] COVID-19 PCRon 01-21-2020 SARS-CoV-2 (COVID-19) RNA FAIZAN+probe Ql (Unsp spec) Not detected Normal Not Detected [facility] Comment on above: Result Comment: This nucleic acid amplification test was developed and its performance characteristics determined by [employer]. Nucleic acid amplification tests include PCR and [...] assay. Performed By: #### C VDPCR #### [facility] [address] [place], [place] [address] Katarina Nielsen Encounters Encounter Date Encounter Type Care Provider Facility Start: 05-26-2023 End: 05-26-2023 ambulatory [facility] Start: 10-24-2020 End: 10-25-[address] CLOVER REGAN Facility:[facility] Start: 03-05-[address] CLOVER REGAN Facility :[facility] Start: 02-08-2020 End: 02-08-[address] CLOVER REGAN Facility:[facility] Start: 02-03-2020 End: 02-04-[address] CLOVER REGAN Facility:[facility] Start: 02-01-2020 End: 02-02-[address] CLOVER REGAN Facility:[facility] Start: 01-31-2020 End: 02-01-[address] CLOVER REGAN Facility:[facility] Start: 01-20-2020 End: 01-21-[address] CLOVER REGAN Facility:[facility] Payers Date Payer Category Payer Unknown [id number] 2.16.84 [id number] 1960 Unknown [id number] 2.16.84 [id number] 1960 Unknown [id number] 2.16.84 [id number] 1960 Unknown [id number] 2.16.84 [id number] 1960 Unknown [id number] 2.16.84 [id number] 1960 Unknown [id number] 2.16.84 [id number] 1960 Unknown [id number] 2.16.84 [id number] 1959 Private Health Insurance [id number] 1959 Self-pay 1959 Unknown [id number] Progress note 05-26-2023 Note Date & Type Note Facility 05-26-2023 Note [facility] Cardiology Clinic Note Chief Complaint: New patient here to establish care. Ref from Dr. Regan for abnormal stress test, ordered for dyspnea on exertion. Had blood work a few weeks ago and was started on thyroid meds and simvastatin. States his BP is always high when he checks his BP at home, as it averages around 160/80's. He currently does not take antihypertensive medications and never has. He denies chest pain, palpitations, and lightheadedness/syncope. HPI: Lissy Samuel is a 63 y.o. male with hypothyroidism, untreated hypertension, who is an ex-smoker He has noticed progressively worsening exertional shortness of breath over the past 6 months or so. He states that he can barely walk from his car to the office without feeling dyspnea on exertion. He noticed this when he was shoveling snow over the winter. He denies chest pain or chest pressure. He has had no significant palpitations, lightheadedness, dizziness or syncope. He has no orthopnea, paroxysmal external dyspnea or lower extremity edema SOCIAL Hx: He drinks alcohol socially, he used to smoke but quit 11 years ago. Family History: No premature coronary artery disease in any first-degree relatives Cardiology ROS: Review of Systems Cardiovascular: Positive for dyspnea on exertion. Musculoskeletal: Positive for back pain. All other systems reviewed and are negative. Past Medical History He has no past medical history on file. Surgical History He has no past surgical history on file. Social History He has no history on file for tobacco use, alcohol use, and drug use. Family History No family history on file. Allergies Patient has no allergy information on record. Medications No current outpatient medications on file. Last Recorded Vitals BP 160/90 (BP Location: Left arm, Patient Position: Sitting) Pulse 73 Ht 1.88 m (6' 2 ) Wt 88 kg (194 lb) SpO2 96% BMI 24.91 kg/m??? Physical Examination: GENERAL: alert and oriented x3, well developed, in no acute distress. HEAD: atraumatic, normocephalic. EYES: MANDY, EOMI. NECK: trachea midline, no JVD present, no carotid bruits present. CARDIAC: S1, S2 present. RRR. No murmur, rubs, or gallops. RESPIRATORY: CTAB, no increased effort of breathing, no rales, rhonchi, or wheezing. ABDOMEN: soft, nontender, nondistended. EXTREMITIES: no lower extremity edema, peripheral pulses are 2+ bilaterally. No rash/skin discoloration present. NEURO: strength/sensation equal and symmetric in bilateral upper and lower extremities. PSYCH: appropriate mood, affect, and judgement. Investigations: Stress Test Stress Test Requesting physician: Clover Regan Procedure: Exercise stress test General Information: Reason for Stress Test: Dyspnea Cardiac History and Risk Factors: Former smoker Resting 12 - Lead Electrocardiogram: Rate & rhythm: Normal sinus at a rate of 67. [place]: Normal T-waves: Inverted in aVL ST-segments: Normal Prior EKG 02/08/2020: Appears similar to current study, including inverted T-waves in aVL Stress Test: Protocol: Isaias protocol was followed but was aborted prior to reaching target heart rate due to dyspnea. Exercise capacity: Poor exercise capacity. Total exercise time of 1 minutes 30 seconds reached Isaias stage 1 at 1.7MPH, 10% grade, & 4.6 METs. Blood pressure: Initial: 166/104, Maximum: 196/114 Rate & rhythm: Patient remained in sinus rhythm during the exercise and recovery portions of the study. The maximum heart rate was 106, which was 67% of the maximum predicted heart rate 79. Multiple PVCs were noted. ST-segments & T-waves: There were no T-wave changes and no ST-segment changes when compared to the baseline EKG. Patient response/symptoms: Patient complained of dyspnea, but unclear if reproducible of chief complaint Interpretation: Non-diagnostic exercise stress test as patient could not achieve target heart rate due to dyspnea. Clinical correlation required. Documented By: Zay Brooks D.O. 05/14/23 1541 Signed By: 05/14/23 1541 Assessment: Hypertension Dyspnea on exertion Recent bronchitis Hypothyroidism Nondiagnostic stress test due to inability to achieve target heart rate Plan: The patient's blood pressure needs treatment; will initiate lisinopril 10 mg daily A basic metabolic panel will be checked in a week Routine labs will also be ordered including TSH, free T4, fasting lipid profile and liver function test A complete echocardiogram Given his risk factor profile, and worsening exertional shortness of breath as well as inability to achieve 85% of maximum predicted heart rate, will order a Lexiscan Cardiolite stress test. A coronary CTA would also be reasonable. Which ever his insurance agrees to cover will be ordered. Further recommendations pending the above Ehab Karina David MD, MPH, FACC, [facility], [facility] Interventional Cardiology Pager E (more content not included)... [facility] Summary Purpose Family History No Family History Records FoundNo Family History Records Found Advance Directives No Advanced Directives Records FoundNo Advanced Directives Records Found Additional Source Comments (unrecognized sect ion and content) No Status Records FoundNo Status Records Found INFORMATION SOURCE (unrecogn ized section and content) DATE CREATED AUTHOR 11/10/2020 [facility] DATE CREATED AUTHOR AUTHOR'S ORGANIZ ATION 05/26/2023 [facility] FOR RECORDS PERTAINING TO PATIENTS WHO ARE [...] BE BASED ON THE PRIMARY CLINICAL RECORDS. [employer] provides no warranty or guarantee of the accuracy or completeness of information in this document.
--- NOTE | 2023-06-11 06:15 | NM_ITS ---
Patient Name: LISSY GATES MR#: [id number] : 1960 Exam Date: 06/11/2023 Ordering Doctor: DR Tracey David M.D. RADIOLOGY REPORT PROCEDURE: NM JAMAL PERF SPECT REST STR COMPARISON: None. INDICATIONS: ABNORMAL EKG, DYSPNEA TECHNIQUE: Exam Description: Stress/Rest one day protocol gated SPECT Rest Imagin.0 mCi Tc-99m Cardiolite IV on 06/11/2023 Stress Imaging 31.0 mCi Tc-99m Cardiolite IV on 06/11/2023 Exercise Protocol: 0.4 mg Lexiscan given IV Heart Rate (bpm): Rest: 59 Max: 99 PMHR: 63 Blood Pressure: Rest: 182/108 Max: 182/108 Symptoms: Rest and peak stress ECG findings were normal and the exercise portion of the study was normal per attending physician Dr. David . For more details please see separate cardiac stress test report. FINDINGS: QUALITY OF STUDY: PERFUSION DEFECT: LOCATION: Basal inferoseptal. Basal inferior. Mid-inferoseptal. Mid-inferior. Apical inferior. [place]. SIZE: Large (5 or more segments). SEVERITY: Moderate. TYPE: Persistent. WALL MOTION: Mild hypokinesis: LV SIZE: Enlarged; EDV 147 mL. TID / TCD: None; 0.9 LVEF: Abnormal. Calculated EF 50%. SUMMARY: Myocardial perfusion imaging study has ABNORMAL findings. CONCLUSION: 1. Moderate sized area of moderately decreased uptake in the inferior wall extending to the apex, primarily RCA distribution. 2. No reversible ischemia 3. Low left ventricular ejection fraction of 50% 4. Dilated left ventricle, EDV 147 milliliters 5. Normal exercise test Dictated by: Rafael Velásquez MD on 06/11/2023 at 14:56 Approved by: Rafael Velásquez MD on 06/11/2023 at 15:03
--- NOTE | 2023-06-11 07:29 | CA_ITS ---
Patient Name: LISSY GATES MR#: [id number] : 1960 Exam Date: 06/11/2023 Ordering Doctor: DR Tracey David M.D. ECHOCARDIOGRAM REPORT PROCEDURE: CA ECHO DOPPLER COMPLETE INDICATIONS: Abnormal EKG COMPARISON: None. DESCRIPTION: COMPLETE ECHOCARDIOGRAM Real-time transthoracic echocardiography with 2D, M-mode, spectral and color flow Doppler performed. QUALITY: Technical quality was good. LEFT VENTRICLE: Normal chamber size. Borderline left ventricular hypertrophy. Global left ventricular systolic function is mildly decreased. LV EF: Visual estimation of left ventricular ejection fraction is 45% DIASTOLIC: Normal diastolic function. ATRIAL SEPTUM: LEFT ATRIUM: Normal chamber size. RIGHT ATRIUM: Mild dilatation. RIGHT VENTRICLE: Normal chamber size. Normal right ventricular systolic function. TRICUSPID VALVE: Normal mobility and thickness. No stenosis with trivial regurgitation. No evidence of pulmonary hypertension. RVSP 26 mmHg MITRAL VALVE: Normal mobility and thickness. No evidence of mitral valve stenosis. There is no mitral annular calcification. Trivial mitral regurgitation. AORTIC VALVE: Normal trileaflet appearance. No visible sclerosis. Normal leaflet mobility. No evidence of aortic valve stenosis. No aortic regurgitation. AORTIC ROOT: Normal diameter and appearance. PULMONIC VALVE: Normal thickness and mobility. No stenosis. No regurgitation. PERICARDIUM: No evidence of pericardial effusion. IVC: Collapses with inspirations. Normal size. PLEURA: CONCLUSION: 1. The left ventricle is normal in size and exhibits mildly reduced systolic function with global hypokinesis. LVEF is estimated at 45%. 2. Normal right ventricular size and systolic function. 3. No significant valvular dysfunction. 4. Normal diastolic function. 5. Normal right-sided pressures. Adult Echocardiography Procedure Report Left Ventricle LVEDD (3.7 - 5.6 cm): 5.21 cm LVESD (2.2 - 4.0 cm): 3.94 cm LVIVS thickness (0.6 - 1.2 cm): 1.24 cm LVPW thickness (0.5 - 1.0 cm): 0.95 cm e': 0.08 m/s E - e': 7.10 LVOT Max Gradient: 1.91 mm[Hg] LVOT Area (cm2): 0.69 m/s Peak Velocity (LVOT): 0.69 m/s Mean Velocity (LVOT): 0.45 m/s LVOT Diameter 2.03 cm Left Ventricular Ejection Fraction: 45 % Left Atrium LA Volume Index (2D A2C): 33.53 ml/m2 Left Atrium Systolic Dimension: 3.70 cm Mitral Valve MV E to A Ratio: 0.87 Mitral Valve A-Wave Peak Velocity: 0.61 m/s Mitral Valve E-Wave Peak Velocity: 0.53 m/s Right Ventricle RV Internal Diastolic Dimension: 3.15 cm Aorta AO Root Diam: 3.85 cm Ascending Ao Diam: 3.56 cm Aortic Valve AoV Area (Peak Florentin): 2.67 cm2, 2.67 cm2 AoV Area (VTI): 2.88 cm2, 2.88 cm2 Peak Velocity(Antegrade Flow): 0.84 m/s Peak Gradient(Antegrade Flow): 2.82 mm[Hg] Mean Velocity(Antegrade Flow): 0.57 m/s Mean Gradient(Antegrade Flow): 1.48 mm[Hg] Velocity Time Integral: 20.51 cm Tricuspid Valve Peak Velocity (Regurgitant Flow): 2.33 m/s, 2.34 m/s, 2.43 m/s Pulmonic Valve Mean Gradient: 0.92 mm[Hg], 1.03 mm[Hg] Mean Velocity: 0.46 m/s, 0.48 m/s Peak Velocity: 0.65 m/s Peak Gradient: 1.70 mm[Hg], 1.70 mm[Hg] Right Atrium Right Atrium Systolic Pressure: 43.56 ml, 43.56 ml Dictated by: Tino Coughlin M.D. on 06/11/2023 at 16:39 Approved by: Tino Coughlin M.D. on 06/11/2023 at 16:45
[2023-06-11] MEDS: REGADENOSON 0.4 MG/5 ML SYRINGE 0.400000000000000022 MG IV (08:24)
== END 2023-06-11 06:14 | disposition home or self-care (01) ==
LOC: NM 06:13
PROVIDERS: PCP Family Medicine; Visit Provider Internal Medicine Interventional Cardiology
DX: R94.31 Abnormal electrocardiogram [ECG] [EKG] (principal)
CPT/HCPCS: 78452; 93017; 93306; 93356; A9500; J2785

== ENCOUNTER 2023-06-25 15:03 | Outpatient (OUT) | payer OTHER, SELFPAY ==
[2023-06-25 16:16] LABS: Basophils Absolute Auto 0.1 10^3/uL (0.0-0.1); Eosinophils Absolute Auto 0.1 10^3/uL (0.0-0.7); Hematocrit 43.4 % (42.0-54.0); Immature Granulocytes Abs Auto 0.06 10^3/uL (0.00-0.03); Immature Granulocytes Pct Auto 0.6 % (0.0-0.5); Lymphocytes Absolute Auto 2.1 10^3/uL (1.2-3.8); Lymphocytes Percent Auto 20.6 % (20.5-60.0); Mean Corpuscular HGB Conc 32.3 g/dL (29.9-35.2); Mean Corpuscular Hemoglobin 28.9 pg (25.9-34.0); Mean Corpuscular Volume 89.7 fL (80.0-94.0); Mean Platelet Volume 10.2 fL (9.5-13.5); Monocytes Absolute Auto 1.2 10^3/uL (0.3-0.8); Monocytes Percent Auto 11.7 % (1.7-12.0); Neutrophils Absolute Auto 6.6 10^3/uL (1.4-6.5); Neutrophils Percent Auto 65.1 % (43.0-75.0); Platelet Count 352 10^3/uL (150-450); Red Blood Count 4.84 10^6/uL (4.70-6.10); Red Cell Distribution Width 13.2 % (11.0-15.0); White Blood Count 10.1 10^3/uL (4.0-11.0)
[2023-06-25 16:24] LABS: Anion Gap 9.8; BUN Creatinine Ratio 10.8; Calcium 9.3 mg/dL (8.5-10.1); Carbon Dioxide 31.3 mmol/L (21.0-32.0); Chloride 96 mmol/L (98-107); Estimated GFR (African America >60 (>=60); Estimated GFR (Non-African Ame >60 (>=60); Glucose 92 mg/dL (74-106); Potassium 4.1 mmol/L (3.5-5.1); Sodium 133 mmol/L (136-145)
== END 2023-06-25 15:04 | disposition home or self-care (01) ==
LOC: LAB 15:06
PROVIDERS: PCP Family Medicine; Visit Provider Internal Medicine Interventional Cardiology
DX: R94.39 Abnormal result of other cardiovascular function study (principal); I50.21 Acute systolic (congestive) heart failure
CPT/HCPCS: 36415; 80048; 85025

== ENCOUNTER 2023-07-11 08:51 | Outpatient (OUT) | payer OTHER, SELFPAY ==
--- OUTSIDE RECORDS SUMMARY | 2023-07-11 08:56 | XMS_ITS | CCD ---
Author Organization [facility] Care Team Providers Care Stitch Marker Name Role Phone BRUCE, DR GALO Primary [...] HOY, DR GALO Consulting Unavailable ELTAHAWY, EHAB Referring Unavailable ELTAHAWY, EHAB Attending Unavailable ELTAHAWY, EHAB Admitting Unavailable ELTAHAWY, JESÚSAB Attending Unavailable Problems Active Problems Problem Classification Problem Date Documented Date Episodic/Chronic Chronic obstructive pulmonary disease and bronchiectasis (1 source) Bronchitis, not specified as acute or chronic; Translations: [BRONCHITIS NOT SPEC ACUTE/CHRON] Onset: 1 Episodic Congestive heart failure; nonhypertensive (2 sources) Acute systolic (congestive) heart failure; Translations: [Acute systolic (congestive) heart failure] Onset: 4 Chronic Essential hypertension (2 sources) Essential (primary) hypertension; Translations: [Essential (primary) hypertension] Onset: 4 Chronic Other lower respiratory disease (2 sources) Other forms of dyspnea; Translations: [Other forms of dyspnea] Onset: 4 Episodic Other screening for suspected conditions (not mental disorders or infectious disease) (4 sources) Abnormal result of other cardiovascular function study; Translations: [Abnormal electrocardiogram [ECG] [EKG]] Onset: 4 Episodic Unclassified (3 sources) CONTACT W/AND (SUSP) EXPOS COVID-19; Translations: [CONTACT W/AND (SUSP) EXPOS COVID-19] Onset: 1 Past or Other Problems Problem Classification Problem [...] Results Test Name Value Interpretation Reference Range Sandra amna Leo 07-03-2023 ANES Attestation signed by Tracey David MD at 07/03/2023 9:24 AM Tracey David MD, MPH, FACC, [facility], [facility] Interventional Cardiology Pager Email: [email or web address] Patient: Lissy Samuel Procedure Information Date/Time: 07/03/23 1030 Procedure: Coronary angiography (Bilateral) - RHC/CORS via RIJ and L radial Location: [facility] RN [employer] [address] / [facility] (Cath) Providers: Tracey David MD Clinical information reviewed: Big Screen Tools Physical Exam Airway Mallampati: III Cardiovascular Rhythm: regular Dental Pulmonary Abdominal Anesthesia Plan ASA 3 other (Subconscious sedation. ) Additional Equipment Requests Normal [facility] HPon 07-03-2023 Attestation signed by Tracey David MD at 07/03/2023 9:24 AM Tracey David MD, MPH, [facility], [facility], [facility] Interventional Cardiology Pager Email: [email or web address] History Of Present Illness Lissy Samuel is a 63 y.o. male presenting for coronary angiogram. hypothyroidism, untreated hypertension, who is an ex-smoker [...] paroxysmal external dyspnea or lower extremity edema Past Medical History He has a past medical history of Hyperlipidemia. Surgical History He has no past surgical history on file. Social History He reports that he quit smoking about 12 years ago. His smoking use included cigarettes. He has never used smokeless tobacco. He reports current alcohol use. No history on file for drug use. Allergies Patient has no known allergies. Medications Medications Prior to Admission Medication Sig Dispense Refill Last Dose levothyroxine (Synthroid, Levoxyl) 75 mcg tablet take 1 tablet by mouth every morning ON AN EMPTY STOMACH 07/03/2023 liothyronine sodium (LIOTHYRONINE ORAL) Take 5 mcg by mouth in the morning. 07/03/2023 lisinopril 10 mg tablet Take 1 tablet (10 mg) by mouth in the morning. 30 tablet 11 07/03/2023 simvastatin (Zocor) 20 mg tablet Take 20 mg by mouth in the evening. 07/02/2023 Review of Systems Cardiovascular: Positive for dyspnea on exertion. Musculoskeletal: Positive for back pain. All other systems reviewed and are negative. Physical Exam GENERAL: alert and oriented x3, well developed, [...] lower extremities. PSYCH: appropriate mood, affect, and judgement Last Recorded Vitals Blood pressure (!) 174/91, pulse 76, resp. rate 16, weight 86.2 kg (190 lb), SpO2 98 %. Relevant Results Stress Test Requesting physician: Clover Barrera Procedure: Exercise stress test General Information: Reason for Stress Test: Dyspnea Cardiac History and Risk Factors: Former smoker Resting 12 - Lead Electrocardiogram: Rate & rhythm: Normal sinus at a rate of 67. Garrison: Normal T-waves: Inverted in aVL ST-segments: Normal [...] Brooks D.O. 05/14/23 1541 Signed By: 05/14/23 1547 Assessment/Plan Active Problems: Abnormal cardiovascular stress test Reduced ejection fraction concurrent with and due to acute heart failure (CMS/HCC) Nondiagnostic stress test due to inability to achieve target heart rate Dyspnea on exertion Hypertension Hypothyroidism Given his risk factor profile, and worsening exertional shortness of breath as well as inability to achieve 85% of maximum predicted heart rate, will proceed with coronary angiogram. [facility] NURSNOTEon 07-03-2023 NURSNOTE RN educated pt on d/c instructions. RN encouraged pt to voice any questions or concerns. Pt verbalizes no questions or concerns at this time. Pt was wheeled off of unit with all of belongings. [facility] 36on 06-12-2023 36 MD Afshan Connelly MA Please let pt know his echo and stress test are abnormal; his EF is mildly reduced (45-50%) I would recommend a cath: RHC/CORS via RIJ and L radial if he would like to proceed. Thanks Spoke with patient and he is agreeable to go for heart cath. Dr. Barrera's office made aware. Orders entered. Normal [facility] Telephoneon 06-12-2023 Telephone [id number] Lissy Samuel 1960 M Date Provider Department Center 06/12/2023 TRACEY COLE Family History Problem Relation Age of Onset No Known Problems Mother No Known Problems Father Coronary artery disease Father's Brother Family Status - Relation Status Age at Mother Father Father's Brother Normal [facility] Office Visiton 05-26-2023 Follow-up visit [id number] Lissy Samuel 1960 M Date Provider Department Center 05/26/2023 TRACEY COLE Family History Problem Relation Age of Onset No Known Problems Mother No Known Problems Father Coronary artery disease Father's Brother Family Status - Relation Status Age at Mother Father Father's Brother Level of Service:38024 [place] OFFICE/OUTPATIENT NEW MODERATE MDM 45 MINUTES Normal [facility] Covid-19 PCR (CVDTBH)on 10-06 SARS-CoV-2 (COVID-19) RNA FAIZAN+probe Ql (Unsp spec) Not detected Normal NOT DETECTED [facility] Comment on above: Result Comment: This test is not yet approved or cleared by the [place] FDA. When there are no FDA-approved or cleared tests available, and other criteria are met, FDA can make tests available under an emergency access mechanism called an Emergency Use Authorization (EUA). The EUA for this test is supported by the [employer] Supervisor of Health and Human Service's (HHS's) declaration [...] consistent with SARS-CoV-2. Performed By: #### B DURABLE MEDICAL EQUIPMENT TECHNICIAN, CMP, TROP #### [facility] [address] [place] [address] Katarina Nielsen SYMPTOMATIC COVID-19 ANTIGEN on 10-24-2020 EUA Statement SEE BELOW Normal [facility] Comment on above: Result Comment: This [...] is revoked sooner. Performed By: #### B DURABLE MEDICAL EQUIPMENT TECHNICIAN, CMP, TROP #### [facility] [address] [place] [address] Katarina Nielsen SARS-CoV-2 (COVID-19) RNA FAIZAN+probe Ql (Unsp spec) Negative Normal NEGATIVE [facility] Comment on above: Performed By: #### B DURABLE MEDICAL EQUIPMENT TECHNICIAN, CMP, TROP #### [facility] [address] [place] [address] Katarina Nielsen BNPon 02-08-2020 Natriuretic peptide B (Bld) [Mass/Vol] 228.0 pg/mL Normal <=900.0 [facility] Comment on above: Performed By: #### B DURABLE MEDICAL EQUIPMENT TECHNICIAN, CMP, TROP #### [facility] [address] [place] [address] Katarina Nielsen CBC AUTO DIFFon 02-08-2020 BASO # 0.1 103/ul Normal 0.0-0.1 [facility] Comment on above: Performed By: #### B DURABLE MEDICAL EQUIPMENT TECHNICIAN, CMP, TROP #### [facility] [address] [place] [address] Katarina Nielsen Basophils/100 WBC (Bld) 0.7 % Normal 0.2-2.0 [facility] Comment on above: Performed By: #### B DURABLE MEDICAL EQUIPMENT TECHNICIAN, CMP, TROP #### [facility] [address] [place] [address] Katarina Gia EO # 0.1 103/ul Normal 0.0-0.7 [facility] Comment on above: Performed By: #### B DURABLE MEDICAL EQUIPMENT TECHNICIAN, CMP, TROP #### [facility] [address] [place] [address] Katarina Gia Eosinophils/100 WBC (Bld) 0.6 % Critically low 0.9-7.0 [facility] Comment on above: Performed By: #### B DURABLE MEDICAL EQUIPMENT TECHNICIAN, CMP, TROP #### [facility] [address] [place] [address] Katarina Gia Erythrocyte distribution width (RBC) [Ratio] 14.0 % Normal 11.0-15.0 [facility] Comment on above: Performed By: #### B DURABLE MEDICAL EQUIPMENT TECHNICIAN, CMP, TROP #### [facility] [address] [place] [address] Katarina Gia Hematocrit (Bld) [Volume fraction] 45.7 % Normal 42.0-54.0 [facility] Comment on above: Performed By: #### B DURABLE MEDICAL EQUIPMENT TECHNICIAN, CMP, TROP #### [facility] [address] [place] [address] Katarina Gia Hemoglobin (Bld) [Mass/Vol] 15.1 g/dL Normal 14.0-18.0 [facility] Comment on above: Performed By: #### B DURABLE MEDICAL EQUIPMENT TECHNICIAN, CMP, TROP #### [facility] [address] [place] [address] Katarina Gia IG # 0.02 10e3/ul Normal 0.00-0.03 [facility] Comment on above: Performed By: #### B DURABLE MEDICAL EQUIPMENT TECHNICIAN, CMP, TROP #### [facility] [address] [place] [address] Katarina Gia IG % 0.2 % Normal 0.0-0.5 [facility] Comment on above: Performed By: #### B DURABLE MEDICAL EQUIPMENT TECHNICIAN, CMP, TROP #### [facility] [address] [place] [address] Katarina Gia LYMPH # 1.7 103/ul Normal 1.2-3.8 [facility] Comment on above: Performed By: #### B DURABLE MEDICAL EQUIPMENT TECHNICIAN, CMP, TROP #### [facility] [address] [place] [address] Katarina Nielsen Lymphocytes/100 WBC (Bld) 16.7 % Critically low 20.5-60.0 [facility] Comment on above: Performed By: #### B DURABLE MEDICAL EQUIPMENT TECHNICIAN, CMP, TROP #### [facility] [address] [place] [address] Katarina Nielsen MANUAL DIFF REQ NO Normal [facility] Comment on above: Performed By: #### B DURABLE MEDICAL EQUIPMENT TECHNICIAN, CMP, TROP #### [facility] [address] [place] [address] Katarina Nielsen MCH (RBC) [Entitic mass] 29.6 pg Normal 25.9-34.0 [facility] Comment on above: Performed By: #### B DURABLE MEDICAL EQUIPMENT TECHNICIAN, CMP, TROP #### [facility] [address] [place] [address] Katarina Nielsen MCHC (RBC) [Mass/Vol] 33.0 g/dL Normal 29.9-35.2 [facility] Comment on above: Performed By: #### B DURABLE MEDICAL EQUIPMENT TECHNICIAN, CMP, TROP #### [facility] [address] [place] [address] Katarina Nielsen MCV (RBC) [Entitic vol] 89.6 fL Normal 80.0-94.0 [facility] Comment on above: Performed By: #### B DURABLE MEDICAL EQUIPMENT TECHNICIAN, CMP, TROP #### [facility] [address] [place] [address] Katarinavictoria Buenrostroen MONO # 1.2 103/ul Critically high 0.3-0.8 [facility] Comment on above: Performed By: #### B DURABLE MEDICAL EQUIPMENT TECHNICIAN, CMP, TROP #### [facility] [address] [place] [address] Katarina Nielsen Monocytes/100 WBC (Bld) 11.4 % Normal 1.7-12.0 [facility] Comment on above: Performed By: #### B DURABLE MEDICAL EQUIPMENT TECHNICIAN, CMP, TROP #### [facility] [address] [address] Katarina Gia NEUT # 7.1 103/ul Critically high 1.4-6.5 [facility] Comment on above: Performed By: #### B DURABLE MEDICAL EQUIPMENT TECHNICIAN, CMP, TROP #### [facility] [address] [id number] Katarina Nielsen Neutrophils/100 WBC (Bld) 70.4 % Normal 43.0-75.0 [facility] Comment on above: Performed By: #### B DURABLE MEDICAL EQUIPMENT TECHNICIAN, CMP, TROP #### [facility] [address] [id number] Katarinavictoria Nielsen Platelet mean volume (Bld) [Entitic vol] 9.5 fL Normal 9.5-13.5 [facility] Comment on above: Performed By: #### B DURABLE MEDICAL EQUIPMENT TECHNICIAN, CMP, TROP #### [facility] [address] [place] [address] Katarina Gia PLT 339 103/ul Normal 150-450 [facility] Comment on above: Performed By: #### B DURABLE MEDICAL EQUIPMENT TECHNICIAN, CMP, TROP #### [facility] [address] [place], [place] [id number] Katarina Gia RBC 5.10 106/ul Normal 4.70-6.10 [facility] Comment on above: Performed By: #### B DURABLE MEDICAL EQUIPMENT TECHNICIAN, CMP, TROP #### [facility] [address] [place], [place] [id number] Katarinavictoria Buenrostroen WBC 10.1 103/ul Normal 4.0-11.0 [facility] Comment on above: Performed By: #### B DURABLE MEDICAL EQUIPMENT TECHNICIAN, CMP, TROP #### [facility] [address] [place], [place] [id number] Katarina Gia CTA CHEST WO W CONon [...] ANTONIO REDD Date: 2020-02-08 14:04 Normal [facility] PROF 14(COMP METB)on 020 Albumin [Mass/Vol] 3.7 g/dL Normal 3.5-5.0 [facility] Comment on above: Performed By: #### B DURABLE MEDICAL EQUIPMENT TECHNICIAN, CMP, TROP #### [facility] [address] [place], [place] [address] Katarina Gia Albumin/Globulin [Mass ratio] 1.1 {ratio} Normal [facility] Comment on above: Performed By: #### B DURABLE MEDICAL EQUIPMENT TECHNICIAN, CMP, TROP #### [facility] [address] [place], [place] [address] Katarina Gia ALP [Catalytic activity/Vol] 72 U/L Normal 38-126 [facility] Comment on above: Performed By: #### B DURABLE MEDICAL EQUIPMENT TECHNICIAN, CMP, TROP #### [facility] [address] [phone] Katarina Gia ALT [Catalytic activity/Vol] 43 U/L Normal 21-72 [facility] Comment on above: Performed By: #### B DURABLE MEDICAL EQUIPMENT TECHNICIAN, CMP, TROP #### [facility] [address] [id number] Katarina Gia Anion gap [Moles/Vol] 13.1 mmol/L Normal [facility] Comment on above: Performed By: #### B DURABLE MEDICAL EQUIPMENT TECHNICIAN, CMP, TROP #### [facility] [address] [address] Katarina Gia AST [Catalytic activity/Vol] 31 U/L Normal 17-59 [facility] Comment on above: Performed By: #### B DURABLE MEDICAL EQUIPMENT TECHNICIAN, CMP, TROP #### [facility] [address] [address] Katarina Gia Bilirubin [Mass/Vol] 0.5 mg/dL Normal 0.2-1.3 [facility] Comment on above: Performed By: #### B DURABLE MEDICAL EQUIPMENT TECHNICIAN, CMP, TROP #### [facility] [address] [place] [address] Katarina Gia Calcium [Mass/Vol] 9.2 mg/dL Normal 8.4-10.2 [facility] Comment on above: Performed By: #### B DURABLE MEDICAL EQUIPMENT TECHNICIAN, CMP, TROP #### [facility] [address] [place] [address] Katarina Gia Chloride [Moles/Vol] 96 mmol/L Critically low 98-107 [facility] Comment on above: Performed By: #### B DURABLE MEDICAL EQUIPMENT TECHNICIAN, CMP, TROP #### [facility] [address] [place] [address] Katarina Gia CO2 [Moles/Vol] 27.0 mmol/L Normal 22.0-30.0 The [facility] Comment on above: Performed By: #### B DURABLE MEDICAL EQUIPMENT TECHNICIAN, CMP, TROP #### [facility] [address] [place], [place] [id number] Katarina Gia Creatinine [Mass/Vol] 0.88 mg/dL Normal 0.66-1.25 [facility] Comment on above: Performed By: #### B DURABLE MEDICAL EQUIPMENT TECHNICIAN, CMP, TROP #### [facility] [address] [place], [place] [id number] Katarina Gia EGFR-AF CITIZEN [place] >60 Normal >=60 The [facility] Comment on above: Performed By: #### B DURABLE MEDICAL EQUIPMENT TECHNICIAN, CMP, TROP #### [facility] [address] [place] [address] Katarina Gia EGFR-NON AF CITIZEN OF [place] >60 Normal >=60 [facility] Comment on above: Performed By: #### B DURABLE MEDICAL EQUIPMENT TECHNICIAN, CMP, TROP #### [facility] [address] [address] Katarina Gia Globulin (S) [Mass/Vol] 3.5 g/dL Normal [facility] Comment on above: Performed By: #### B DURABLE MEDICAL EQUIPMENT TECHNICIAN, CMP, TROP #### [facility] [address] [place] [address] Katarina Gia Glucose [Mass/Vol] 93 mg/dL Normal 74-106 [facility] Comment on above: Performed By: #### B DURABLE MEDICAL EQUIPMENT TECHNICIAN, CMP, TROP #### [facility] [address] [place] [address] Katarina Gia Potassium [Moles/Vol] 4.1 mmol/L Normal 3.4-5.0 [facility] Comment on above: Performed By: #### B DURABLE MEDICAL EQUIPMENT TECHNICIAN, CMP, TROP #### [facility] [address] [place] [address] Katarina Gia Protein [Mass/Vol] 7.2 g/dL Normal 6.1-8.2 [facility] Comment on above: Performed By: #### B DURABLE MEDICAL EQUIPMENT TECHNICIAN, CMP, TROP #### [facility] [address] [place] [address] Katarina Gia Sodium [Moles/Vol] 132 mmol/L Critically low 137-145 [facility] [place] Comment on above: Performed By: #### B DURABLE MEDICAL EQUIPMENT TECHNICIAN, CMP, TROP #### [facility] [address] [place] [address] Katarina Gia Urea nitrogen [Mass/Vol] 13.0 mg/dL Normal 9.0-20.0 [facility] Comment on above: Performed By: #### B DURABLE MEDICAL EQUIPMENT TECHNICIAN, CMP, TROP #### [facility] [address] [place] [address] Katarina Gia Urea nitrogen/Creatinin e [Mass ratio] 14.8 mg/mg Normal [facility] Comment on above: Performed By: #### B DURABLE MEDICAL EQUIPMENT TECHNICIAN, CMP, TROP #### [facility] [address] [place] [address] Katarina Gia PROTIMEon 02-08-2020 INR Coag (PPP) [Relative time] 0.97 {INR} Normal [facility] Comment on above: Performed By: #### B DURABLE MEDICAL EQUIPMENT TECHNICIAN, CMP, TROP #### [facility] [address] [place], [place] [phone] Katarina Gia INR GUIDELINES SEE BELOW Normal [facility] Comment on above: Result Comment: TEENA RED INR: 2.0 - 3.0 CONDITIONS NOT LISTED BELOW 2.5 - 3.5 FOR PROSTHETIC HEART VALVE REPLACEMENT 2.5 - 3.5 RECURRENT THROMBOSIS Performed By: #### B DURABLE MEDICAL EQUIPMENT TECHNICIAN, CMP, TROP #### [facility] [address] [phone] Katarina Gia PT Coag (PPP) [Time] 10.3 s Normal 9.0-11.6 [facility] Comment on above: Performed By: #### B DURABLE MEDICAL EQUIPMENT TECHNICIAN, CMP, TROP #### [facility] [address] [place] [address] Katarina Gia PT NORMAL PLEASE NOTE: NORMAL RANGE CHANGE 12-23-2013 DUE TO REAGENT LOT CHANGE Normal [facility] Comment on above: Performed By: #### B DURABLE MEDICAL EQUIPMENT TECHNICIAN, CMP, TROP #### [facility] [address] [place], [place] [id number] Katarina Gia PTTon 02-08-2020 aPTT Coag (Bld) [Time] 27.2 s Normal 22.3-36.2 [facility] Comment on above: Performed By: #### B DURABLE MEDICAL EQUIPMENT TECHNICIAN, CMP, TROP #### [facility] [address] [place], [place] [phone] Katarina Gia PTT NORMAL PLEASE NOTE: NORMAL RANGE CHANGE 03-01-2015 DUE TO REAGENT LOT CHANGE Normal [facility] Comment on above: Performed By: #### B DURABLE MEDICAL EQUIPMENT TECHNICIAN, CMP, TROP #### [facility] [address] [place] [address] Katarina Gia Rapid Covid-19 PCRon 020 [employer] LDT Info SEE BELOW Normal [facility] Comment on above: Result Comment: This test is not yet approved or cleared by the [place] Food and Drug Administration (FDA) . This test was developed by [employer] [place]. The performance characteristics of this test were validated by [facility]. The results are not intended to be used as the sole means for clinical diagnosis or patient management decisions. The [facility] is authorized under Clinical Laboratory Improvement Amendments (CLIA) to perform high-complexity testing. When diagnostic testing is negative, the possibility of a false negative should be considered in the context of a patients recent exposures and the presence of clinical signs and symptoms consistent with SARS-CoV-2. Performed By: #### B DURABLE MEDICAL EQUIPMENT TECHNICIAN, CMP, TROP #### [facility] [address] [place] [address] [facility]-2 (COVID-19) RNA FAIZAN+probe Ql (Unsp spec) Not detected Normal NOT DETECTED [facility] Comment on above: Result Comment: . Performed By: #### B DURABLE MEDICAL EQUIPMENT TECHNICIAN, CMP, TROP #### [facility] [address] [place] [address] Gia TROPONIN - Ion 02-08-2020 TROP <0.012 Normal <=0.034 [facility] Comment on above: Performed By: #### B DURABLE MEDICAL EQUIPMENT TECHNICIAN, CMP, TROP #### [facility] [address] [place] [address] [facility]OP[facility] RANGE SEE BELOW Normal [facility] Comment on above: Result Comment: <0.0 34 ng/ml NEGATIVE 0.034-0.119 INDETERMINATE 0.120 AMI CUT OFF Performed By: #### B DURABLE MEDICAL EQUIPMENT TECHNICIAN, CMP, TROP #### [facility] [address] [place] [address] Katarina Gia TROP <0.012 Normal <=0.034 [facility] Comment on above: Performed By: #### B DURABLE MEDICAL EQUIPMENT TECHNICIAN, CMP, TROP #### [facility] [address] [place] [address] Katarina Gia TROPONIN RANGE SEE BELOW Normal [facility] Comment on above: Result Comment: <0.0 34 ng/ml NEGATIVE 0.034-0.119 INDETERMINATE 0.120 AMI CUT OFF Performed By: #### B DURABLE MEDICAL EQUIPMENT TECHNICIAN, CMP, TROP #### [facility] [address] [place] [address] Katarina Gia XR CHEST 1 Von 02-08-2020 XR CHEST [...] AILYN ROSE Date: 2020-02-08 12:14 Normal [facility] BNPon 02-03-2020 Natriuretic peptide B (Bld) [Mass/Vol] 81.0 pg/mL Normal <=900.0 [facility] Comment on above: Performed By: #### C MP, T4, TSH, BNP, FT3 #### [facility] [address] [place] [address] Katarina Gia CBC AUTO DIFFon 02-03-2020 BASO # 0.1 103/ul Normal 0.0-0.1 [facility] Comment on above: Performed By: #### B DURABLE MEDICAL EQUIPMENT TECHNICIAN, CMP, TROP #### [facility] [address] [place] [address] Katarina Nielsen Basophils/100 WBC (Bld) 0.9 % Normal 0.2-2.0 [facility] Comment on above: Performed By: #### B DURABLE MEDICAL EQUIPMENT TECHNICIAN, CMP, TROP #### [facility] [address] [place] [address] Katarina Gia EO # 0.1 103/ul Normal 0.0-0.7 [facility] Comment on above: Performed By: #### B DURABLE MEDICAL EQUIPMENT TECHNICIAN, CMP, TROP #### [facility] [address] [place] [address] Katarina Nielsen Eosinophils/100 WBC (Bld) 0.9 % Normal 0.9-7.0 [facility] Comment on above: Performed By: #### B DURABLE MEDICAL EQUIPMENT TECHNICIAN, CMP, TROP #### [facility] [address] [place] [address] Katarina Gia Erythrocyte distribution width (RBC) [Ratio] 14.2 % Normal 11.0-15.0 [facility] Comment on above: Performed By: #### B DURABLE MEDICAL EQUIPMENT TECHNICIAN, CMP, TROP #### [facility] [address] [place] [address] Katarina Gia Hematocrit (Bld) [Volume fraction] 45.1 % Normal 42.0-54.0 [facility] Comment on above: Performed By: #### B DURABLE MEDICAL EQUIPMENT TECHNICIAN, CMP, TROP #### [facility] [address] [place] [address] Katarina Gia Hemoglobin (Bld) [Mass/Vol] 14.3 g/dL Normal 14.0-18.0 [facility] Comment on above: Performed By: #### B DURABLE MEDICAL EQUIPMENT TECHNICIAN, CMP, TROP #### [facility] [address] [place] [address] Katarina Gia IG # 0.04 10e3/ul Critically high 0.00-0.03 [facility] Comment on above: Performed By: #### B DURABLE MEDICAL EQUIPMENT TECHNICIAN, CMP, TROP #### [facility] [address] [place] [address] Katarina Gia IG % 0.5 % Normal 0.0-0.5 [facility] Comment on above: Performed By: #### B DURABLE MEDICAL EQUIPMENT TECHNICIAN, CMP, TROP #### [facility] [address] [place] [address] Katarina Gia LYMPH # 1.9 103/ul Normal 1.2-3.8 [facility] Comment on above: Performed By: #### B DURABLE MEDICAL EQUIPMENT TECHNICIAN, CMP, TROP #### [facility] [address] [place] [address] Katarina Gia Lymphocytes/100 WBC (Bld) 24.5 % Normal 20.5-60.0 [facility] Comment on above: Performed By: #### B DURABLE MEDICAL EQUIPMENT TECHNICIAN, CMP, TROP #### [facility] [address] [place] [address] Katarina Gia MANUAL DIFF REQ NO Normal [facility] Comment on above: Performed By: #### B DURABLE MEDICAL EQUIPMENT TECHNICIAN, CMP, TROP #### [facility] [address] [place] [address] Katarina Gia MCH (RBC) [Entitic mass] 28.6 pg Normal 25.9-34.0 [facility] Comment on above: Performed By: #### B DURABLE MEDICAL EQUIPMENT TECHNICIAN, CMP, TROP #### [facility] [address], [place] [address] Katarina Nielsen MCHC (RBC) [Mass/Vol] 31.7 g/dL Normal 29.9-35.2 [facility] Comment on above: Performed By: #### B DURABLE MEDICAL EQUIPMENT TECHNICIAN, CMP, TROP #### [facility] [address], [place] [address] Katarinavictoria Nielsen MCV (RBC) [Entitic vol] 90.2 fL Normal 80.0-94.0 [facility] Comment on above: Performed By: #### B DURABLE MEDICAL EQUIPMENT TECHNICIAN, CMP, TROP #### [facility] [address] [place] [id number] Katarina Gia MONO # 1.0 103/ul Critically high 0.3-0.8 [facility] Comment on above: Performed By: #### B DURABLE MEDICAL EQUIPMENT TECHNICIAN, CMP, TROP #### [facility] [address] [place] [id number] Katarinavictoria Nielsen Monocytes/100 WBC (Bld) 12.4 % Critically high 1.7-12.0 [facility] Comment on above: Performed By: #### B DURABLE MEDICAL EQUIPMENT TECHNICIAN, CMP, TROP #### [facility] [address] [place] [id number] Katarinavictoria Buenrostroen NEUT # 4.8 103/ul Normal 1.4-6.5 [facility] Comment on above: Performed By: #### B DURABLE MEDICAL EQUIPMENT TECHNICIAN, CMP, TROP #### [facility] [address] [place] [id number] Katarina Nielsen Neutrophils/100 WBC (Bld) 60.8 % Normal 43.0-75.0 [facility] Comment on above: Performed By: #### B DURABLE MEDICAL EQUIPMENT TECHNICIAN, CMP, TROP #### [facility] [address] [place], [place] [address] Katarinavictoria Buenrostroen Platelet mean volume (Bld) [Entitic vol] 9.3 fL Critically low 9.5-13.5 [facility] Comment on above: Performed By: #### B DURABLE MEDICAL EQUIPMENT TECHNICIAN, CMP, TROP #### [facility] [address] [place] [id number] Katarina Gia PLT 323 103/ul Normal 150-450 [facility] Comment on above: Performed By: #### B DURABLE MEDICAL EQUIPMENT TECHNICIAN, CMP, TROP #### [facility] [address] [place] [id number] Katarina Nielsen RBC 5.00 106/ul Normal 4.70-6.10 [facility] Comment on above: Performed By: #### B DURABLE MEDICAL EQUIPMENT TECHNICIAN, CMP, TROP #### [facility] [address] [place] [id number] Katarinavcitoria Nielsen WBC 7.9 103/ul Normal 4.0-11.0 [facility] Comment on above: Performed By: #### B DURABLE MEDICAL EQUIPMENT TECHNICIAN, CMP, TROP #### [facility] [address] [place] [id number] Katarina Nielsen FREE T3on 02-03-2020 Free T3 [Mass/Vol] 2.89 pg/mL Normal 2.77-5.27 [facility] Comment on above: Performed By: #### C MP, T4, TSH, BNP, FT3 #### [facility] [address] [place] [id number] Katarina Nielsen PROF 14(COMP METB)on 020 Albumin [Mass/Vol] 3.8 g/dL Normal 3.5-5.0 [facility] Comment on above: Performed By: #### C MP, T4, TSH, BNP, FT3 #### [facility] [address] [place], [place] [address] Katarina Nielsen Albumin/Globulin [Mass ratio] 1.2 {ratio} Normal [facility] Comment on above: Performed By: #### C MP, T4, TSH, BNP, FT3 #### [facility] [address] [place] [id number] Katarina Nielsen ALP [Catalytic activity/Vol] 73 U/L Normal 38-126 [facility] Comment on above: Performed By: #### C MP, T4, TSH, BNP, FT3 #### [facility] [address] [place] [id number] Katarina Nielsen ALT [Catalytic activity/Vol] 52 U/L Normal 21-72 [facility] Comment on above: Performed By: #### C MP, T4, TSH, BNP, FT3 #### [facility] [address] [place] [address] Katarina Gia Anion gap [Moles/Vol] 8.6 mmol/L Normal [facility] Comment on above: Performed By: #### C MP, T4, TSH, BNP, FT3 #### [facility] [address] [place] [address] Katarina Gia AST [Catalytic activity/Vol] 35 U/L Normal 17-59 [facility] Comment on above: Performed By: #### C MP, T4, TSH, BNP, FT3 #### [facility] [address] [place] [address] Katarina Gia Bilirubin [Mass/Vol] 0.4 mg/dL Normal 0.2-1.3 [facility] Comment on above: Performed By: #### C MP, T4, TSH, BNP, FT3 #### [facility] [address] [place] [address] Katarina Gia Calcium [Mass/Vol] 8.9 mg/dL Normal 8.4-10.2 [facility] Comment on above: Performed By: #### C MP, T4, TSH, BNP, FT3 #### [facility] [address] [place] [address] Katarina Gia Chloride [Moles/Vol] 101 mmol/L Normal 98-107 [facility] Comment on above: Performed By: #### C MP, T4, TSH, BNP, FT3 #### [facility] [address] [place] [address] Katarina Gia CO2 [Moles/Vol] 32.9 mmol/L Critically high 22.0-30.0 [facility] Comment on above: Performed By: #### C MP, T4, TSH, BNP, FT3 #### [facility] [address] [place] [address] Katarina Gia Creatinine [Mass/Vol] 0.81 mg/dL Normal 0.66-1.25 [facility] Comment on above: Performed By: #### C MP, T4, TSH, BNP, FT3 #### [facility] [address] [place] [id number] Katarina Gia EGFR-AF CITIZEN [place] >60 Normal >=60 The [facility] Comment on above: Performed By: #### C MP, T4, TSH, BNP, FT3 #### [facility] [address] [place] [id number] Katarina Gia EGFR-NON AF CITIZEN OF [place] >60 Normal >=60 [facility] Comment on above: Performed By: #### C MP, T4, TSH, BNP, FT3 #### [facility] [address] [place] [id number] Katarina Gia Globulin (S) [Mass/Vol] 3.3 g/dL Normal [facility] Comment on above: Performed By: #### C MP, T4, TSH, BNP, FT3 #### [facility] [address] [place] [address] Katarina Gia Glucose [Mass/Vol] 95 mg/dL Normal 74-106 [facility] Comment on above: Performed By: #### C MP, T4, TSH, BNP, FT3 #### [facility] [address] [place] [address] Katarina Gia Potassium [Moles/Vol] 4.5 mmol/L Normal 3.4-5.0 [facility] Comment on above: Performed By: #### C MP, T4, TSH, BNP, FT3 #### [facility] [address] [place] [address] Katarina Gia Protein [Mass/Vol] 7.1 g/dL Normal 6.1-8.2 [facility] Comment on above: Performed By: #### C MP, T4, TSH, BNP, FT3 #### [facility] [address] [place] [id number] Katarina Gia Sodium [Moles/Vol] 138 mmol/L Normal 137-145 [facility] Comment on above: Performed By: #### C MP, T4, TSH, BNP, FT3 #### [facility] [address] [place] [address] Katarina Gia Urea nitrogen [Mass/Vol] 13.0 mg/dL Normal 9.0-20.0 [facility] Comment on above: Performed By: #### C MP, T4, TSH, BNP, FT3 #### [facility] [address] [place] [address] Katarina Nielsen Urea nitrogen/Creatinin e [Mass ratio] 16.0 mg/mg Normal [facility] Comment on above: Performed By: #### C MP, T4, TSH, BNP, FT3 #### [facility] [address] [place] [address] Katarina Nielsen T4on 02-03-2020 T4 [Mass/Vol] 6.20 ug/dL Normal 5.53-11.00 [facility] Comment on above: Performed By: #### C MP, T4, TSH, BNP, FT3 #### [facility] [address] [place] [address] Katarina Nielsen TSHon 02-03-2020 TSH 5.662 uIU/mL Critically high 0.470-4.680 [facility] Comment on above: Performed By: #### B DURABLE MEDICAL EQUIPMENT TECHNICIAN, CMP, TROP #### [facility] [address] [place] [address] TSH RANGE SEE BELOW Normal [facility] Comment on above: Result Comment: <0.3 4 UIU/ml HYPERTHYROID 0.34-5.60 UIU/ml EUTHYROID >5.60 UIU/ml HYPOTHYROID Performed By: #### B DURABLE MEDICAL EQUIPMENT TECHNICIAN, CMP, TROP #### [facility] [address] [place] [address] Katarina Nielsen COVID-19 PCRon 02-02-2020 SARS-CoV-2 (COVID-19) RNA FAIZAN+probe Ql (Unsp spec) Not detected Normal Not Detected [facility] Comment on above: Result Comment: This nucleic acid amplification test was developed and its performance characteristics determined by [employer]. Nucleic acid amplification tests include PCR and [...] in this assay. Performed By: #### B DURABLE MEDICAL EQUIPMENT TECHNICIAN, CMP, TROP #### [facility] [address] [place] [address] Katarina Nielsen NM STRESS/REST MULTIon 01-30 NM STRESS/REST MULTI Patient: LISSY SAMUEL Exam Date: 01/31/2020 : 1960 Gender:M Ordering : DR CLOVER BARRERA . Admission #: [id number] Family : Order #: [id number] CLICK HERE TO VIEW EXAM RADIOLOGY REPORT [...] MD on 01/31/2020 at 14:31 Normal [facility] COVID-19 PCRon 01-21-2020 SARS-CoV-2 (COVID-19) RNA FAIZAN+probe Ql (Unsp spec) Not detected Normal Not Detected [facility] Comment on above: Result Comment: This nucleic acid amplification test was developed and its performance characteristics determined by [employer]. Nucleic acid amplification tests include PCR and [...] assay. Performed By: #### C VDPCR #### [facility] [address] [place], [place] [address] Katarina Nielsen Encounters Encounter Date Encounter Type Care Provider Facility Start: 07-03-2023 End: 07-03-2023 ambulatory [facility] Start: 05-26-2023 End: 05-26-2023 ambulatory [facility] Start: 10-24-2020 End: 10-25-[address] [...] Facility:[facility] Payers Date Payer Category Payer Unknown [id number] [id number] [id number] 1960 Unknown [id number] 2.16.84 [id number] 1960 Unknown [id number] 2.16.84 [id number] 1960 Unknown [id number] 2.16.84 [id number] 1960 Unknown [id number] 2.16.84 [id number] 1960 Unknown [id number] 2.16.84 [id number] 1960 Unknown [id number] 2.16.84 [id number] 1959 Private Health Insurance [id number] 1959 Self-pay 1959 Unknown [id number] Progress note 07-03-2023 Note Date & Type Note Facility 07-03-2023 Note [facility] Report FINAL IMPRESSIONS: Angiographically non obstructive coronary arteries Low normal global left ventricular systolic function by noninvasive imaging RECOMMENDATIONS: Consider alternate etiologies for the symptomatology namely pulmonary; recommend pulmonary function testing as an outpatient Aggressive cardiovascular risk factor modification Continue current medical therapy including an angiotensin-converting enzyme inhibitor given low normal ejection fraction Will repeat an echocardiogram in 6 months to evaluate his ejection fraction at that time Follow-up with Dr. David in the [facility] in 2 months Follow-up with Dr. Clover Barrera his primary care physician in [place] PROCEDURES: Ultrasound-guided access to the left radial artery, bilateral selective coronary angiography via a left radial approach METHODS: After risks, benefits, and alternatives were explained, written informed consent was obtained. The patient was prepped and draped in usual sterile fashion over the left wrist. Local infiltration anesthesia was achieved of the left wrist. Using a micropuncture kit, access to the left radial artery was obtained. A 6 Bulgarian glide sheath was inserted without difficulty. Bilateral selective coronary angiography was performed using AR2 and JL 4 catheters. After reviewing the images, it was elected to conclude the procedure. The catheters were removed. The radial sheath was removed with application of a TR band per protocol to achieve optimal hemostasis. FINDINGS: Hemodynamics: AO 128/82 [105] LEFT VENTRICULOGRAPHY: This was not performed. Ejection fraction is 50% by noninvasive stress test. CORONARY ARTERIES: Left main coronary artery: This arises from the left coronary cusp, it bifurcates into the left anterior descending and left circumflex coronary arteries. It is free of significant stenoses. Left anterior descending coronary artery: This is angiographically nonobstructive. Left circumflex coronary artery: This is angiographically nonobstructive. Right coronary artery: This is a dominant vessel arising anteriorly from the right coronary cusp giving rise to the posterior descending and posterolateral branches. It is free of significant stenoses. INDICATIONS: Exertional shortness of breath, low normal ejection fraction, abnormal stress test [facility] Progress note 05-26-2023 Note Date & Type Note Facility 05-26-2023 Note [facility] Cardiology Clinic Note Chief Complaint: New patient here to establish care. Ref from Dr. Barrera for abnormal stress test, ordered for dyspnea [...] Stress Test Stress Test Requesting physician: Clover Barrera Procedure: Exercise stress test General Information: Reason for Stress Test: Dyspnea Cardiac History and Risk Factors: Former smoker Resting 12 - Lead Electrocardiogram: Rate & rhythm: Normal sinus at a rate of 67. Garrison: Normal T-waves: Inverted in aVL ST-segments: Normal [...] Brooks D.O. 05/14/23 1541 Signed By: 05/14/23 1545 Assessment: Hypertension Dyspnea on exertion Recent bronchitis [...] ordered. Further recommendations pending the above Ehab A MD Frankie, MPH, FACC, [facility], [facility] Interventional Cardiology Pager E (more content not included)... [facility] Summary Purpose Family History No Family History Records FoundNo Family History Records Found Advance Directives No Advanced Directives Records FoundNo Advanced Directives Records Found Additional Source Comments (unrecognized sect ion and content) No Status Records FoundNo Status Records Found INFORMATION SOURCE (unrecogn ized section and content) DATE CREATED AUTHOR 11/10/2020 [facility] DATE CREATED AUTHOR 'S ORGANIZ ATION 07/07/2023 [facility] FOR RECORDS PERTAINING TO PATIENTS WHO [...] BE BASED ON THE PRIMARY CLINICAL RECORDS. [facility]: [facility]. provides no warranty or guarantee of the accuracy or completeness of information in this document.
--- NOTE | 2023-07-11 09:51 | RT_ITS ---
[facility] Test Date: 2023-07-11 Pat Name: LISSY GATES Department: Room: - Gender: Male [employer] Operator: Vinicio Soriano RRT : 1960 Requested By: CLOVER BARRERA Order Number: [id number] Cherelle MD: Zay Brooks Interpretive Statements Pulmonary function testing was completed according to ATS criteria. Findings were considered accurate and reproducible. Both pre- and post-bronchodilator values utilized for spirometry. Spirometry (based on pre-bronchodilator values): -FEV1/FVC: Reduced @ 40% -FEV1: Severely reduced @ 37% -FVC: Reduced @ 69% -KVU53-17%: Reduced @ 15% -There is a positive bronchodilator response in FVC. Lung volumes by plethysmography (based on pre-bronchodilator values): -RV: Increased @ 215% -TLC: Increased @ 129% Diffusion capacity: -DLCO: Low normal @ 80% when corrected for Hb 14g/dL Flow-volume loop: -Severe obstructive pattern Impressions: -Spirometry suggests severe obstruction. There is a positive bronchodilator response. An elevated RV and TLC suggest air trapping and hyperinflation respectively. The diffusion capacity is normal. Overall study suggests asthma or asthma-COPD overlap. Clinical correlation required. Electronically Signed On 07-15-2023 12:46:28 EDT by Zay Brooks
[2023-07-11] MEDS: ALBUTEROL SULFATE 2.5 MG/3 ML VIAL NEB IH (09:52)
== END 2023-07-11 08:52 | disposition home or self-care (01) ==
LOC: CARD 08:52
PROVIDERS: PCP Family Medicine; Visit Provider Family Medicine
DX: R06.00 Dyspnea, unspecified (principal)
CPT/HCPCS: 94060; 94726; 94729

== ENCOUNTER 2023-08-29 09:41 | Outpatient (OUT) | payer OTHER, SELFPAY ==
--- NOTE | 2023-08-29 09:47 | CT_ITS ---
[address] [address] Patient Name: LISSY GATES MRN: [id number] date: 1960 Sex: M Assigned Patient Location: CT Current Patient Location: CT Accession/Order Number: [id number] Exam Date: 08/29/2023 09:57 Report Date: 08/29/2023 15:40 At the request of: RANI JULES Procedure: CT lung screening low-dose EXAMINATION: CT lung screening low-dose HISTORY: Personal history of nicotine independence [id number] COMPARISON: No relevant comparison available. TECHNIQUE: Multi-planar CT images were obtained without and/or with IV contrast as indicated by examination type. Axial, Coronal, and Sagittal images. Dose reduction techniques were achieved by using automated exposure control and/or adjustment of mA and/or kV according to patient size and/or use of iterative reconstruction technique. FINDINGS: LUNGS: A few scattered calcified nodules compatible with granulomas. Stable chronic interstitial changes and stranding within left lung apex. PLEURA: No mass, effusion, or pneumothorax. VASCULATURE: No abnormality. VIKI: Calcified right hilar lymph nodes. MEDIASTINUM: Calcified lymph nodes. CARDIAC: No enlargement, pericardial thickening, or significant calcification. Coronary artery calcifications: Absent AORTA: No aneurysm or dissection. CHEST WALL: No mass or axillary adenopathy. BONES: Healing subacute to chronic posterior lateral left ninth rib fracture. LIMITED ABDOMEN: No suspicious findings Limited images of the upper abdomen. OTHER: Negative. CT/CT lung screening low-dose IMPRESSION: 1. Lung-RADS 2- Benign Appearance or Behavior. Nodules with a very low likelihood of becoming a clinically active cancer due to size or lack of growth. Follow-up CT Chest in 1 year. Electronically authenticated by: ANTONIO REDD Date: 08/29/2023 15:40
== END 2023-08-29 09:42 | disposition home or self-care (01) ==
LOC: CT 09:42
PROVIDERS: PCP Family Medicine; Visit Provider Internal Medicine
DX: Z87.891 Personal history of nicotine dependence (principal); Z12.2 Encounter for screening for malignant neoplasm of respiratory organs
CPT/HCPCS: 71271

== ENCOUNTER 2023-10-03 07:27 | Outpatient (OUT) | payer OTHER, SELFPAY ==
--- NOTE | 2023-10-03 07:30 | CA_ITS ---
Patient Name: LISSY GATES MR#: [id number] : 1960 Exam Date: 10/03/2023 Ordering Doctor: DR DONA MAYERS M.D. ECHOCARDIOGRAM REPORT PROCEDURE: CA ECHO DOPPLER COMPLETE INDICATIONS: Dyspnea on exertion COMPARISON: None. DESCRIPTION: COMPLETE ECHOCARDIOGRAM Real-time transthoracic echocardiography with 2D, M-mode, spectral and color flow Doppler performed. QUALITY: Technical quality was good. LEFT VENTRICLE: Normal chamber size. Normal left ventricular wall thickness. Systolic functionis at the lower limits of normal. LV EF: Low normal left ventricular ejection fraction, (50-55%). DIASTOLIC: Normal diastolic function. ATRIAL SEPTUM: Visually appears intact. LEFT ATRIUM: Normal chamber size. RIGHT ATRIUM: Normal chamber size. RIGHT VENTRICLE: Normal chamber size. Normal right ventricular systolic function. TRICUSPID VALVE: Normal mobility and thickness. No stenosis with mild regurgitation. No evidence of pulmonary hypertension. RVSP 31 mmHg MITRAL VALVE: Normal mobility and thickness. No evidence of mitral valve stenosis. There is no mitral annular calcification. Trivial mitral regurgitation. AORTIC VALVE: Normal trileaflet appearance. No visible sclerosis. Normal leaflet mobility. No evidence of aortic valve stenosis. No aortic regurgitation. AORTIC ROOT: Normal diameter and appearance. PULMONIC VALVE: Normal thickness and mobility. No stenosis. No regurgitation. PERICARDIUM: No evidence of pericardial effusion. IVC: Collapses with inspirations. IVC is normal in size. PLEURA: CONCLUSION: 1. Normal left ventricular size with low normal systolic function. LVEF is estimated at 50-55%. 2. Normal right ventricular size and systolic function. 3. Normal diastolic function. 4. No significant valvular dysfunction. 5. Normal right sided pressures. Adult Echocardiography Procedure Report Left Ventricle LVEDD (3.7 - 5.6 cm): 5.36 cm LVESD (2.2 - 4.0 cm): 4.72 cm LVIVS thickness (0.6 - 1.2 cm): 0.84 cm LVPW thickness (0.5 - 1.0 cm): 0.84 cm e': 0.10 m/s E - e': 6.37 LVOT Max Gradient: 1.87 mm[Hg] LVOT Area (cm2): 0.68 m/s Peak Velocity (LVOT): 0.68 m/s Mean Velocity (LVOT): 0.46 m/s LVOT Diameter 2.03 cm Left Atrium LA Volume Index (2D A2C): 25.84 ml/m2 Left Atrium Systolic Dimension: 3.72 cm Mitral Valve MV E to A Ratio: 0.97 Mitral Valve A-Wave Peak Velocity: 0.67 m/s Mitral Valve E-Wave Peak Velocity: 0.65 m/s Right Ventricle Aorta AO Root Diam: 2.55 cm Aortic Valve AoV Area (Peak Florentin): 2.72 cm2, 2.72 cm2 AoV Area (VTI): 2.83 cm2, 2.83 cm2 Peak Velocity(Antegrade Flow): 0.82 m/s Peak Gradient(Antegrade Flow): 2.66 mm[Hg] Mean Velocity(Antegrade Flow): 0.55 m/s Mean Gradient(Antegrade Flow): 1.37 mm[Hg] Velocity Time Integral: 21.32 cm Tricuspid Valve Peak Velocity (Regurgitant Flow): 2.62 m/s Pulmonic Valve Peak Gradient: 2.02 mm[Hg], 2.02 mm[Hg] Right Atrium Right Atrium Systolic Pressure: 33.84 ml, 33.84 ml Dictated by: Tino Coughlin M.D. on 10/03/2023 at 21:11 Approved by: Tino Coughlin M.D. on 10/03/2023 at 21:15
--- OUTSIDE RECORDS SUMMARY | 2023-10-03 07:31 | XMS_ITS | CCD ---
Author Organization [facility] Care Team Providers Care Mix Chemist Name Role Phone BRUCE, DR GALO Primary [...] GALO Consulting Unavailable [place], EHAB Attending Unavailable [place], EHAB Attending Unavailable [place], E[facility]AB Admitting Unavailable [place], EHAB Attending Unavailable [place], EHAB Referring Unavailable Problems Active Problems Problem Classification Problem [...] [Essential (primary) hypertension] Onset: 4 Chronic Other screening for suspected conditions (not mental [...] Translations: [SHORTNESS OF BREATH] Onset: 02-03-2020 Episodic Other lower respiratory disease (2 sources) Other forms of dyspnea; Translations: [Other forms of dyspnea] Onset: 05-26-2023 Episodic Pneumonia (except that caused by tuberculosis or sexually transmitted disease) (1 source) Pneumonia, unspecified organism; Translations: [PNEUMONIA UNSPECIFIED ORGANISM] Onset: 02-10-2020 Episodic Unclassified (1 source) CONTACT W/AND (SUSP) EXPOS COVID-19; Translations: [CONTACT W/AND (SUSP) EXPOS COVID-19] Onset: 10-24-2020 Results Test Name Value Interpretation Reference Range Facil ity Office Visiton 09-02-2023 Follow-up visit [id number] Lissy Samuel 1960 M Date Provider Department Center 09/02/2023 [id number], EHAB APRYL Eric Family History Problem Relation Age of Onset No Known Problems Mother No Known Problems Father Coronary artery disease Father's Brother Family Status - Relation Status Age at Mother Father Father's Brother Level of Service:80856 CT OFFICE/OUTPATIENT ESTABLISHED MOD MDM 30 MIN Normal [facility] Orders Onlyon 08-29-2023 Orders Only [id number] Lissy Samuel 1960 M Date Provider Department Center 08/29/2023 [id number], HISTORICAL CARD Valente Eric Family History Problem Relation Age of Onset No Known Problems Mother No Known Problems Father Coronary artery disease Father's Brother Family Status - Relation Status Age at Mother Father Father's Brother Normal [facility] ANESon 07-03-2023 ANES Attestation signed by Tracey David MD at 07/03/2023 9:24 AM Tracey David MD, MPH, [facility], [facility] Interventional Cardiology Pager Email: [email or web address] Patient: Lissy Samuel Procedure Information Date/Time: 07/03/23 1030 Procedure: Coronary angiography (Bilateral) - RHC/CORS via RIJ and L radial Location: [facility] CLIENT HR MANAGER [address] / [facility] (Cath) Providers: Tracey David MD Clinical information reviewed: Allergies Meds Physical Exam Airway Mallampati: III Cardiovascular Rhythm: regular Dental Pulmonary Abdominal Anesthesia Plan ASA 3 other (Subconscious sedation. ) Additional Equipment Requests Normal [facility] HPon 07-03-2023 HP Attestation signed by Tracey David MD at 07/03/2023 9:24 AM Tracey David MD, MPH, [facility], [facility] Interventional Cardiology Pager Email: [email or web address] History Of Present Illness Lissy Sameul is a 63 y.o. male presenting for [...] Normal sinus at a rate of 67. [place]: Normal T-waves: Inverted in aVL ST-segments: Normal [...] Brooks D.O. 05/14/23 1541 Signed By: 05/14/23 1546 Assessment/Plan Active Problems: Abnormal cardiovascular stress test Reduced ejection fraction concurrent with and due to acute heart failure (CMS/HCC) Nondiagnostic stress test due to inability to achieve target heart rate Dyspnea on exertion Hypertension Hypothyroidism Given his risk factor profile, and worsening exertional shortness of breath as well as inability to achieve 85% of maximum predicted heart rate, will proceed with coronary angiogram. Normal [facility] NURSNOTEon 07-03-2023 NURSNOTE RN educated pt on d/c instructions. RN encouraged pt to voice any questions or concerns. Pt verbalizes no questions or concerns at this time. Pt was wheeled off of unit with all of belongings. Normal [facility] 36on 06-12-2023 36 MD Afshan Connelly MA Please let pt know his echo and stress test are abnormal; his EF is mildly reduced (45-50%) I would recommend a cath: RHC/CORS via RIJ and L radial if he would like to proceed. Thanks Spoke with patient and he is agreeable to go for heart cath. Dr. Barrera's office made aware. Orders entered. Normal [facility] Telephoneon 06-12-2023 Telephone [id number] Lissy Samuel 1960 M Date Provider Department Center 06/12/2023 TRACEY COLE Family History Problem Relation Age of Onset No Known Problems Mother No Known Problems Father Coronary artery disease Father's Brother Family Status - Relation Status Age at Mother Father Father's Brother [facility] Office Visiton 05-26-2023 Follow-up visit [id number] Lissy Samuel 1960 M Date Provider Department Center 05/26/2023 TRACEY COLE Family History Problem Relation Age of Onset No Known Problems Mother No Known Problems Father Coronary artery disease Father's Brother Family Status - Relation Status Age at Mother Father Father's Brother Level of Service:42881 CT OFFICE/OUTPATIENT NEW MODERATE MDM 45 MINUTES [facility] Covid-19 PCR (CVDTBH)on 10-06 SARS-CoV-2 (COVID-19) RNA FAIZAN+probe Ql (Unsp spec) Not detected Normal NOT DETECTED [facility] Comment on above: Result Comment: This test is not yet approved or cleared by the [place] FDA. When there are no FDA-approved or cleared tests available, and other criteria are met, FDA can make tests available under an emergency access mechanism called an Emergency Use Authorization (EUA). The EUA for this test is supported by the [place] of Health and Human Service's (HHS's) declaration [...] consistent with SARS-CoV-2. Performed By: #### B RETAIL CLERK, CMP, TROP #### [facility] [address] [place] [address] Katarina Nielsen SYMPTOMATIC COVID-19 ANTIGEN on 10-24-2020 EUA Statement SEE BELOW Normal [facility] Comment on above: Result Comment: This [...] is revoked sooner. Performed By: #### B RETAIL CLERK, CMP, TROP #### [facility] [address] [address] Katarina Nielsen SARS-CoV-2 (COVID-19) RNA FAIZAN+probe Ql (Unsp spec) Negative Normal NEGATIVE [facility] Comment on above: Performed By: #### B RETAIL CLERK, CMP, TROP #### [facility] [address] [place] [address] Katarina Nielsen BNPon 02-08-2020 Natriuretic peptide B (Bld) [Mass/Vol] 228.0 pg/mL Normal <=900.0 [facility] Comment on above: Performed By: #### B RETAIL CLERK, CMP, TROP #### [facility] [address] [place] [address] Katarina Gia CBC AUTO DIFFon 02-08-2020 BASO # 0.1 103/ul Normal 0.0-0.1 [facility] Comment on above: Performed By: #### B RETAIL CLERK, CMP, TROP #### [facility] [address] [place] [address] Katarina Gia Basophils/100 WBC (Bld) 0.7 % Normal 0.2-2.0 [facility] Comment on above: Performed By: #### B RETAIL CLERK, CMP, TROP #### [facility] [address] [place] [address] Katarina Gia EO # 0.1 103/ul Normal 0.0-0.7 [facility] Comment on above: Performed By: #### B RETAIL CLERK, CMP, TROP #### [facility] [address] [place] [address] Katarina Gia Eosinophils/100 WBC (Bld) 0.6 % Critically low 0.9-7.0 [facility] Comment on above: Performed By: #### B RETAIL CLERK, CMP, TROP #### [facility] [address] [place] [address] Katarina Gia Erythrocyte distribution width (RBC) [Ratio] 14.0 % Normal 11.0-15.0 [facility] Comment on above: Performed By: #### B RETAIL CLERK, CMP, TROP #### [facility] [address] [place] [address] Katarina Gia Hematocrit (Bld) [Volume fraction] 45.7 % Normal 42.0-54.0 [facility] Comment on above: Performed By: #### B RETAIL CLERK, CMP, TROP #### [facility] [address] [id number] Katarina Gia Hemoglobin (Bld) [Mass/Vol] 15.1 g/dL Normal 14.0-18.0 [facility] Comment on above: Performed By: #### B RETAIL CLERK, CMP, TROP #### [facility] [address] [id number] Katarina Gia IG # 0.02 10e3/ul Normal 0.00-0.03 [facility] Comment on above: Performed By: #### B RETAIL CLERK, CMP, TROP #### [facility] [address] [address] Katarina Gia IG % 0.2 % Normal 0.0-0.5 [facility] Comment on above: Performed By: #### B RETAIL CLERK, CMP, TROP #### [facility] [address] [place] [address] Katarina Gia LYMPH # 1.7 103/ul Normal 1.2-3.8 [facility] Comment on above: Performed By: #### B RETAIL CLERK, CMP, TROP #### [facility] [address] [id number] Katarina Gia Lymphocytes/100 WBC (Bld) 16.7 % Critically low 20.5-60.0 [facility] Comment on above: Performed By: #### B RETAIL CLERK, CMP, TROP #### [facility] [address] [id number] Katarina Gia MANUAL DIFF REQ NO Normal [facility] Comment on above: Performed By: #### B RETAIL CLERK, CMP, TROP #### [facility] [address] [address] Katarina Gia MCH (RBC) [Entitic mass] 29.6 pg Normal 25.9-34.0 [facility] Comment on above: Performed By: #### B RETAIL CLERK, CMP, TROP #### [facility] [address] [address] Katarina Gia MCHC (RBC) [Mass/Vol] 33.0 g/dL Normal 29.9-35.2 [facility] Comment on above: Performed By: #### B RETAIL CLERK, CMP, TROP #### [facility] [address] [place] [address] Katarina Gia MCV (RBC) [Entitic vol] 89.6 fL Normal 80.0-94.0 [facility] Comment on above: Performed By: #### B RETAIL CLERK, CMP, TROP #### [facility] [address] [place] [address] Katarina Gia MONO # 1.2 103/ul Critically high 0.3-0.8 [facility] Comment on above: Performed By: #### B RETAIL CLERK, CMP, TROP #### [facility] [address] [place] [address] Katarina Gia Monocytes/100 WBC (Bld) 11.4 % Normal 1.7-12.0 [facility] Comment on above: Performed By: #### B RETAIL CLERK, CMP, TROP #### [facility] [address] [place] [address] Katarina Gia NEUT # 7.1 103/ul Critically high 1.4-6.5 [facility] Comment on above: Performed By: #### B RETAIL CLERK, CMP, TROP #### [facility] [address] [place] [address] Katarina Gia Neutrophils/100 WBC (Bld) 70.4 % Normal 43.0-75.0 [facility] Comment on above: Performed By: #### B RETAIL CLERK, CMP, TROP #### [facility] [address] [place] [address] Katarina Gia Platelet mean volume (Bld) [Entitic vol] 9.5 fL Normal 9.5-13.5 [facility] Comment on above: Performed By: #### B RETAIL CLERK, CMP, TROP #### [facility] [address] [place] [address] Katarina Gia PLT 339 103/ul Normal 150-450 [facility] Comment on above: Performed By: #### B RETAIL CLERK, CMP, TROP #### [facility] [address] [place] [address] Katarina Gia RBC 5.10 106/ul Normal 4.70-6.10 [facility] Comment on above: Performed By: #### B RETAIL CLERK, CMP, TROP #### [facility] [address], [place] [address] Katarina Nielsen WBC 10.1 103/ul Normal 4.0-11.0 [facility] Comment on above: Performed By: #### B RETAIL CLERK, CMP, TROP #### [facility] [address] [place], [place] [address] Katarina Nielsen CTA CHEST WO W CONon [...] ANTONIO REDD Date: 2020-02-08 14:04 Normal [facility] PROF 14(COMP METB)on 020 Albumin [Mass/Vol] 3.7 g/dL Normal 3.5-5.[address] [facility] Comment on above: Performed By: #### B RETAIL CLERK, CMP, TROP #### [facility] [address] [place], [place] [address] Katarina Nielsen Albumin/Globulin [Mass ratio] 1.1 {ratio} Normal [facility] Comment on above: Performed By: #### B RETAIL CLERK, CMP, TROP #### [facility] [address] [place], [place] [phone] Katarina Gia ALP [Catalytic activity/Vol] 72 U/L Normal 38-126 [facility] Comment on above: Performed By: #### B RETAIL CLERK, CMP, TROP #### [facility] [address] [id number] Katarina Gia ALT [Catalytic activity/Vol] 43 U/L Normal 21-72 [facility] Comment on above: Performed By: #### B RETAIL CLERK, CMP, TROP #### [facility] [address] [place] [address] Katarina Gia Anion gap [Moles/Vol] 13.1 mmol/L Normal [facility] Comment on above: Performed By: #### B RETAIL CLERK, CMP, TROP #### [facility] [address] [place] [address] Katarina Gia AST [Catalytic activity/Vol] 31 U/L Normal 17-59 [facility] Comment on above: Performed By: #### B RETAIL CLERK, CMP, TROP #### [facility] [address] [place] [address] Katarina Gia Bilirubin [Mass/Vol] 0.5 mg/dL Normal 0.2-1.3 [facility] Comment on above: Performed By: #### B RETAIL CLERK, CMP, TROP #### [facility] [address] [place], [place] [id number] Katarina Gia Calcium [Mass/Vol] 9.2 mg/dL Normal 8.4-10.[address] [facility] Comment on above: Performed By: #### B RETAIL CLERK, CMP, TROP #### [facility] [address] [place], [place] [phone] Katarina Gia Chloride [Moles/Vol] 96 mmol/L Critically low 98-107 [facility] Comment on above: Performed By: #### B RETAIL CLERK, CMP, TROP #### [facility] [address] [place], [place] [phone] Katarina Gia CO2 [Moles/Vol] 27.0 mmol/L Normal 22.0-30.0 [facility] Comment on above: Performed By: #### B RETAIL CLERK, CMP, TROP #### [facility] [address] [place], [place] [phone] Katarina Gia Creatinine [Mass/Vol] 0.88 mg/dL Normal 0.66-1.25 [facility] Comment on above: Performed By: #### B RETAIL CLERK, CMP, TROP #### [facility] [address] [id number] Katarina Gia EGFR-AF CAMBODIAN >60 Normal >=60 [facility] Comment on above: Performed By: #### B RETAIL CLERK, CMP, TROP #### [facility] [address] [place] [address] Katarina Gia EGFR-NON AF CAMBODIAN >60 Normal >=60 [facility] Comment on above: Performed By: #### B RETAIL CLERK, CMP, TROP #### [facility] [address] [place] [address] Katarina Gia Globulin (S) [Mass/Vol] 3.5 g/dL Normal [facility] Comment on above: Performed By: #### B RETAIL CLERK, CMP, TROP #### [facility] [address] [place] [address] Katarina Gia Glucose [Mass/Vol] 93 mg/dL Normal 74-106 [facility] Comment on above: Performed By: #### B RETAIL CLERK, CMP, TROP #### [facility] [address] [place] [address] Katarina Gia Potassium [Moles/Vol] 4.1 mmol/L Normal 3.4-5.0 [facility] Comment on above: Performed By: #### B RETAIL CLERK, CMP, TROP #### [facility] [address] [place] [address] Katarina Gia Protein [Mass/Vol] 7.2 g/dL Normal 6.1-8.2 [facility] Comment on above: Performed By: #### B RETAIL CLERK, CMP, TROP #### [facility] [address] [place] [address] Katarina Gia Sodium [Moles/Vol] 132 mmol/L Critically low 137-145 [facility] Comment on above: Performed By: #### B RETAIL CLERK, CMP, TROP #### [facility] [address] [address] Katarina Gia Urea nitrogen [Mass/Vol] 13.0 mg/dL Normal 9.0-20.0 [facility] Comment on above: Performed By: #### B RETAIL CLERK, CMP, TROP #### [facility] [address] [address] Katarina Gia Urea nitrogen/Creatinin e [Mass ratio] 14.8 mg/mg Normal [facility] Comment on above: Performed By: #### B RETAIL CLERK, CMP, TROP #### [facility] [address] [address] Katarina Gia PROTIMEon 02-08-2020 INR Coag (PPP) [Relative time] 0.97 {INR} Normal [facility] Comment on above: Performed By: #### B RETAIL CLERK, CMP, TROP #### [facility] [address] [place] [address] Katarina Gia INR GUIDELINES SEE BELOW Normal [facility] Comment on above: Result Comment: TEENA RED INR: 2.0 - 3.0 CONDITIONS NOT LISTED BELOW 2.5 - 3.5 FOR PROSTHETIC HEART VALVE REPLACEMENT 2.5 - 3.5 RECURRENT THROMBOSIS Performed By: #### B RETAIL CLERK, CMP, TROP #### [facility] [address] [address] Katarina Gia PT Coag (PPP) [Time] 10.3 s Normal 9.0-11.6 [facility] Comment on above: Performed By: #### B RETAIL CLERK, CMP, TROP #### [facility] [address] [place], [place] [phone] Katarina Gia PT NORMAL PLEASE NOTE: NORMAL RANGE CHANGE 12-23-2013 DUE TO REAGENT LOT CHANGE Normal [facility] Comment on above: Performed By: #### B RETAIL CLERK, CMP, TROP #### [facility] [address] [address] Katarina Gia PTTon 02-08-2020 aPTT Coag (Bld) [Time] 27.2 s Normal 22.3-36.2 [facility] Comment on above: Performed By: #### B RETAIL CLERK, CMP, TROP #### [facility] [address] [place] [address] Katarina Nielsen PTT NORMAL PLEASE NOTE: NORMAL RANGE CHANGE 03-01-2015 DUE TO REAGENT LOT CHANGE Normal [facility] Comment on above: Performed By: #### B RETAIL CLERK, CMP, TROP #### [facility] [address] [place] [address] Katarina Nielsen Rapid Covid-19 PCRon 020 [email or web address] LDT Info SEE BELOW Normal [facility] Comment on above: Result Comment: This test is not yet approved or cleared by the [place] Food and Drug Administration (FDA) . This test was developed by [employer], [facility]. The performance characteristics of this test were validated by [facility]. The results are not intended to be used as the sole means for clinical diagnosis or patient management decisions. [facility] is authorized under Clinical Laboratory Improvement Amendments (CLIA) to perform high-complexity testing. When diagnostic testing is negative, the possibility of a false negative should be considered in the context of a patients recent exposures and the presence of clinical signs and symptoms consistent with SARS-CoV-2. Performed By: #### B RETAIL CLERK, CMP, TROP #### [facility] [address] [place] [address] Katarina Nielsen SARS-CoV-2 (COVID-19) RNA FAIZAN+probe Ql (Unsp spec) Not detected Normal NOT DETECTED [facility] Comment on above: Result Comment: . Performed By: #### B RETAIL CLERK, CMP, TROP #### [facility] [address] [place] [address] Katarina Nielsen TROPONIN - Ion 02-08-2020 TROP <0.012 Normal <=0.034 [facility] Comment on above: Performed By: #### B RETAIL CLERK, CMP, TROP #### [facility] [address] [place] [address] Katarina Nielsen TROPONIN RANGE SEE BELOW Normal [facility] Comment on above: Result Comment: <0.0 34 ng/ml NEGATIVE 0.034-0.119 INDETERMINATE 0.120 AMI CUT OFF Performed By: #### B RETAIL CLERK, CMP, TROP #### [facility] [address] [address] Katarinavictoria Nielsen TROP <0.012 Normal <=0.034 [facility] Comment on above: Performed By: #### B RETAIL CLERK, CMP, TROP #### [facility] [address] [place] [address] Katarinavictoria Nielsen TROPONIN RANGE SEE BELOW Normal [facility] Comment on above: Result Comment: <0.0 34 ng/ml NEGATIVE 0.034-0.119 INDETERMINATE 0.120 AMI CUT OFF Performed By: #### B RETAIL CLERK, CMP, TROP #### [facility] [address] [place] [address] Katarinavictoria Nielsen XR CHEST 1 Von 02-08-2020 [...] AILYN ROSE Date: 2020-02-08 12:14 Normal [facility] BNPon 02-03-2020 Natriuretic peptide B (Bld) [Mass/Vol] 81.0 pg/mL Normal <=900.0 [facility] Comment on above: Performed By: #### C MP, T4, TSH, BNP, FT3 #### [facility] [address] [place] [address] Katarina Nielsen CBC AUTO DIFFon 02-03-2020 BASO # 0.1 103/ul Normal 0.0-0.1 [facility] Comment on above: Performed By: #### B RETAIL CLERK, CMP, TROP #### [facility] [address] [place] [address] Katarina Nielsen Basophils/100 WBC (Bld) 0.9 % Normal 0.2-2.0 [facility] Comment on above: Performed By: #### B RETAIL CLERK, CMP, TROP #### [facility] [address] [place] [address] Katarina Gia EO # 0.1 103/ul Normal 0.0-0.7 [facility] Comment on above: Performed By: #### B RETAIL CLERK, CMP, TROP #### [facility] [address] [place] [address] Katarina Gia Eosinophils/100 WBC (Bld) 0.9 % Normal 0.9-7.0 [facility] Comment on above: Performed By: #### B RETAIL CLERK, CMP, TROP #### [facility] [address] [place] [address] Katarina Gia Erythrocyte distribution width (RBC) [Ratio] 14.2 % Normal 11.0-15.0 [facility] Comment on above: Performed By: #### B RETAIL CLERK, CMP, TROP #### [facility] [address] [place] [address] Katarina Gia Hematocrit (Bld) [Volume fraction] 45.1 % Normal 42.0-54.0 [facility] Comment on above: Performed By: #### B RETAIL CLERK, CMP, TROP #### [facility] [address] [place] [address] Katarina Gia Hemoglobin (Bld) [Mass/Vol] 14.3 g/dL Normal 14.0-18.0 [facility] Comment on above: Performed By: #### B RETAIL CLERK, CMP, TROP #### [facility] [address] [place] [address] Katarina Gia IG # 0.04 10e3/ul Critically high 0.00-0.03 [facility] Comment on above: Performed By: #### B RETAIL CLERK, CMP, TROP #### [facility] [address] [place] [address] Katarina Gia IG % 0.5 % Normal 0.0-0.5 [facility] Comment on above: Performed By: #### B RETAIL CLERK, CMP, TROP #### [facility] [address] [place] [address] Katarina Gia LYMPH # 1.9 103/ul Normal 1.2-3.8 [facility] Comment on above: Performed By: #### B RETAIL CLERK, CMP, TROP #### [facility] [address] [place], [place] [id number] Katarinavictoria Nielsen Lymphocytes/100 WBC (Bld) 24.5 % Normal 20.5-60.0 [facility] Comment on above: Performed By: #### B RETAIL CLERK, CMP, TROP #### [facility] [address] [place] [address] Katarina Nielsen MANUAL DIFF REQ NO Normal [facility] Comment on above: Performed By: #### B RETAIL CLERK, CMP, TROP #### [facility] [address] [place] [address] Katarinavictoria Nielsen MCH (RBC) [Entitic mass] 28.6 pg Normal 25.9-34.0 [facility] Comment on above: Performed By: #### B RETAIL CLERK, CMP, TROP #### [facility] [address] [place] [address] Katarinavictoria Nielsen MCHC (RBC) [Mass/Vol] 31.7 g/dL Normal 29.9-35.2 [facility] Comment on above: Performed By: #### B RETAIL CLERK, CMP, TROP #### [facility] [address] [place] [address] Katarina Nielsen MCV (RBC) [Entitic vol] 90.2 fL Normal 80.0-94.0 [facility] Comment on above: Performed By: #### B RETAIL CLERK, CMP, TROP #### [facility] [address] [place] [address] Katarina Gia MONO # 1.0 103/ul Critically high 0.3-0.8 [facility] Comment on above: Performed By: #### B RETAIL CLERK, CMP, TROP #### [facility] [address] [place] [address] Katarinavictoria Nielsen Monocytes/100 WBC (Bld) 12.4 % Critically high 1.7-12.0 [facility] Comment on above: Performed By: #### B RETAIL CLERK, CMP, TROP #### [facility] [address] [place] [address] Katarina Gia NEUT # 4.8 103/ul Normal 1.4-6.5 [facility] Comment on above: Performed By: #### B RETAIL CLERK, CMP, TROP #### [facility] [address] [place] [address] Katarina Nielsen Neutrophils/100 WBC (Bld) 60.8 % Normal 43.0-75.0 [facility] Comment on above: Performed By: #### B RETAIL CLERK, CMP, TROP #### [facility] [address] [place], [place] [id number] Katarinavictoria Nielsen Platelet mean volume (Bld) [Entitic vol] 9.3 fL Critically low 9.5-13.5 [facility] Comment on above: Performed By: #### B RETAIL CLERK, CMP, TROP #### [facility] [address] [place] [address] Katarina Gia PLT 323 103/ul Normal 150-450 [facility] Comment on above: Performed By: #### B RETAIL CLERK, CMP, TROP #### [facility] [address] [place] [address] Katarina Gia RBC 5.00 106/ul Normal 4.70-6.10 [facility] Comment on above: Performed By: #### B RETAIL CLERK, CMP, TROP #### [facility] [address] [place], [place] [id number] Katarinavictoria Buenrostroen WBC 7.9 103/ul Normal 4.0-11.0 [facility] Comment on above: Performed By: #### B RETAIL CLERK, CMP, TROP #### [facility] [address] [place], [place] [id number] Katarinavictoria Nielsen FREE T3on 02-03-2020 Free T3 [Mass/Vol] 2.89 pg/mL Normal 2.77-5.[address] [facility] Comment on above: Performed By: #### C MP, T4, TSH, BNP, FT3 #### [facility] [address] [place] [address] Katarina Nielsen PROF 14(COMP METB)on 020 Albumin [Mass/Vol] 3.8 g/dL Normal 3.5-5.0 [facility] Comment on above: Performed By: #### C MP, T4, TSH, BNP, FT3 #### [facility] [address] [place], [place] [id number] Katarina Gia Albumin/Globulin [Mass ratio] 1.2 {ratio} Normal [facility] Comment on above: Performed By: #### C MP, T4, TSH, BNP, FT3 #### [facility] [address] [place] [address] Katarina Gia ALP [Catalytic activity/Vol] 73 U/L Normal 38-126 [facility] Comment on above: Performed By: #### C MP, T4, TSH, BNP, FT3 #### [facility] [address] [place] [address] Katarina Gia ALT [Catalytic activity/Vol] 52 U/L Normal 21-72 [facility] Comment on above: Performed By: #### C MP, T4, TSH, BNP, FT3 #### [facility] [address] [place] [address] Katarina Gia Anion gap [Moles/Vol] 8.6 mmol/L Normal [facility] Comment on above: Performed By: #### C MP, T4, TSH, BNP, FT3 #### [facility] [address] [place] [address] Katarina Gia AST [Catalytic activity/Vol] 35 U/L Normal 17-59 [facility] Comment on above: Performed By: #### C MP, T4, TSH, BNP, FT3 #### [facility] [address] [place] [address] Katarina Gia Bilirubin [Mass/Vol] 0.4 mg/dL Normal 0.2-1.3 [facility] Comment on above: Performed By: #### C MP, T4, TSH, BNP, FT3 #### [facility] [address] [place] [address] Katarina Gia Calcium [Mass/Vol] 8.9 mg/dL Normal 8.4-10.2 [facility] Comment on above: Performed By: #### C MP, T4, TSH, BNP, FT3 #### [facility] [address] [place] [address] Katarina Gia Chloride [Moles/Vol] 101 mmol/L Normal 98-107 [facility] Comment on above: Performed By: #### C MP, T4, TSH, BNP, FT3 #### [facility] [address] [place] [address] Katarina Gia CO2 [Moles/Vol] 32.9 mmol/L Critically high 22.0-30.0 [facility] Comment on above: Performed By: #### C MP, T4, TSH, BNP, FT3 #### [facility] [address] [place] [address] Katarina Gia Creatinine [Mass/Vol] 0.81 mg/dL Normal 0.66-1.25 [facility] Comment on above: Performed By: #### C MP, T4, TSH, BNP, FT3 #### [facility] [address] [place] [address] Katarina Gia EGFR-AF CAMBODIAN >60 Normal >=60 [facility] Comment on above: Performed By: #### C MP, T4, TSH, BNP, FT3 #### [facility] [address] [place] [address] Katarina Gia EGFR-NON AF CAMBODIAN >60 Normal >=60 [facility] Comment on above: Performed By: #### C MP, T4, TSH, BNP, FT3 #### [facility] [address] [place] [address] Katarina Gia Globulin (S) [Mass/Vol] 3.3 g/dL Normal [facility] Comment on above: Performed By: #### C MP, T4, TSH, BNP, FT3 #### [facility] [address] [place] [address] Katarina Gia Glucose [Mass/Vol] 95 mg/dL Normal 74-[address] [facility] Comment on above: Performed By: #### C MP, T4, TSH, BNP, FT3 #### [facility] [address] [place] [address] Katarina Gia Potassium [Moles/Vol] 4.5 mmol/L Normal 3.4-5.0 [facility] Comment on above: Performed By: #### C MP, T4, TSH, BNP, FT3 #### [facility] [address] [place] [address] Katarina Gia Protein [Mass/Vol] 7.1 g/dL Normal 6.1-8.2 [facility] Comment on above: Performed By: #### C MP, T4, TSH, BNP, FT3 #### [facility] [address] [place] [address] Katarina Gia Sodium [Moles/Vol] 138 mmol/L Normal 137-145 [facility] Comment on above: Performed By: #### C MP, T4, TSH, BNP, FT3 #### [facility] [address] [place] [address] Katarina Gia Urea nitrogen [Mass/Vol] 13.0 mg/dL Normal 9.0-20.0 [facility] Comment on above: Performed By: #### C MP, T4, TSH, BNP, FT3 #### [facility] [address] [place] [address] Katarina Gia Urea nitrogen/Creatinin e [Mass ratio] 16.0 mg/mg Normal [facility] Comment on above: Performed By: #### C MP, T4, TSH, BNP, FT3 #### [facility] [address] [place] [address] Katarina Gia T4on 02-03-2020 T4 [Mass/Vol] 6.20 ug/dL Normal 5.53-11.00 [facility] Comment on above: Performed By: #### C MP, T4, TSH, BNP, FT3 #### [facility] [address] [place] [address] Katarina Gia TSHon 02-03-2020 TSH 5.662 uIU/mL Critically high 0.470-4.680 [facility] Comment on above: Performed By: #### B RETAIL CLERK, CMP, TROP #### [facility] [address] [place] [address] Katarina Gia TSH RANGE SEE BELOW Normal [facility] Comment on above: Result Comment: <0.3 4 UIU/ml HYPERTHYROID 0.34-5.60 UIU/ml EUTHYROID >5.60 UIU/ml HYPOTHYROID Performed By: #### B RETAIL CLERK, CMP, TROP #### [facility] [address] [place], [place] [address] Katarina Nielsen COVID-19 PCRon 02-02-2020 SARS-CoV-2 (COVID-19) RNA FAIZAN+probe Ql (Unsp spec) Not detected Normal Not Detected [facility] Comment on above: Result Comment: This nucleic acid amplification test was developed and its performance characteristics determined by [employer]. Nucleic acid amplification tests include PCR and [...] in this assay. Performed By: #### B RETAIL CLERK, CMP, TROP #### [facility] [address] [place], [place] [address] Katarina Nielsen NM STRESS/REST MULTIon 01-30 NM STRESS/REST MULTI Patient: LISSY SAMUEL Exam Date: 01/31/2020 : 1960 Gender:M Ordering : DR CLOVER BARRERA . Admission #: [id number] Family : Order #: [id number] CLICK HERE TO VIEW EXAM RADIOLOGY REPORT [...] MD on 01/31/2020 at 14:31 Normal [facility] COVID-19 PCRon 01-21-2020 SARS-CoV-2 (COVID-19) RNA FAIZAN+probe Ql (Unsp spec) Not detected Normal Not Detected [facility] Comment on above: Result Comment: This nucleic acid amplification test was developed and its performance characteristics determined by [employer]. Nucleic acid amplification tests include PCR and [...] assay. Performed By: #### C VDPCR #### [facility] [address] [place] [address] Katarina Nielsen Encounters Encounter Date Encounter Type Care Provider Facility Start: 09-02-2023 End: 09-02-2023 ambulatory [facility] Start: 07-03-2023 End: 07-03-2023 ambulatory [facility] Start: 05-26-2023 End: 05-26-2023 ambulatory [facility] Start: 10-24-2020 End: 10-25-[address] [...] Facility:[facility] Payers Date Payer Category Payer Unknown [id number] 2.16.84 [id number] 1960 Unknown [id number] 2..84 [id number] 1960 Unknown [id number] .16.84 [id number] 1960 Unknown [id number] 2.16.84 [id number] 1960 Unknown [id number] 2.16.84 [id number] 1960 Unknown [id number] 2.16.84 [id number] 1960 Unknown [id number] 2.16.84 [id number] 1959 Private Health Insurance [id number] 1959 Self-pay 1959 Unknown [id number] Progress note 09-02-2023 Note Date & Type Note Facility 09-02-2023 Note [facility] Cardiology Clinic Note Chief Complaint: Patient here for 2 mo follow up heart cath performed in June 2023. He is following with Dr. Brooks and had recent PFT's. BP in Dr. Brooks's office was 165/97. He was started on an inhaler and has been breathing much better he says. Denies chest pain, palpitations, and lightheadedness/syncope. HPI: Lissy Samuel is a 63 y.o. male With shortness of breath; recently had coronary angiography which showed nonobstructive coronary arteries. Was subsequently diagnosed with asthma and feels much better on inhaler therapy. No new cardiovascular complaints. The left radial access site was slightly sore for a couple of weeks but had no bleeding or bruising. Cardiology ROS: Review of Systems Cardiovascular: Positive for dyspnea on exertion (improving). All other systems reviewed and are negative. Past Medical History He has a past medical history of Hyperlipidemia. Surgical History He has no past surgical history on file. Social History He reports that he quit smoking about 12 years ago. His smoking use included cigarettes. He has never used smokeless tobacco. He reports current alcohol use. No history on file for drug use. Family History Family History Problem Relation Name Age of Onset No Known Problems Mother No Known Problems Father Coronary artery disease Father's Brother Allergies Patient has no known allergies. Medications Current Outpatient Medications: levothyroxine (Synthroid, Levoxyl) 75 mcg tablet, take 1 tablet by mouth every morning ON AN EMPTY STOMACH, Disp: , Rfl: liothyronine sodium (LIOTHYRONINE ORAL), Take 5 mcg by mouth in the morning., Disp: , Rfl: lisinopril 10 mg tablet, Take 1 tablet (10 mg) by mouth in the morning., Disp: 30 tablet, Rfl: 11 simvastatin (Zocor) 20 mg tablet, Take 20 mg by mouth in the evening., Disp: , Rfl: Last Recorded Vitals BP 150/84 (BP Location: Right arm, Patient Position: Sitting) Pulse 68 Ht 1.88 m (6' 2 ) Wt 86.2 kg (190 lb) SpO2 95% BMI 24.39 kg/m??? Physical Examination: GENERAL: alert and oriented [...] extremities. PSYCH: appropriate mood, affect, and judgement. INVESTIGATIONS: Echocardiogram 06/11/2023: Global left ventricular systolic function is mildly reduced with an EF of 45%. Normal right ventricular size and systolic function. No significant valvular dysfunction. Normal diastolic function. Normal right-sided pressures. Conclusion Cardiovascular Laboratory Report FINAL IMPRESSIONS: Angiographically non obstructive coronary [...] time Follow-up with Dr. David in the [facility] in 2 months Follow-up with Dr. Clover Barrera his primary care physician in [place] PROCEDURES: Ultrasound-guided access to the left radial artery, bilateral selective coronary angiography via a left radial approach Assessment: Heart failure with midrange ejection fraction - compensated Hypertension - Poorly controlled Dyspnea on exertion; recently diagnosed with asthma Hypothyroidism Plan: Continue optimal medical therapy for heart failure with midrange ejection fraction; he is on lisinopril, will start Coreg 3.125 mg p.o. twice daily and increase as tolerated. If his shortness of breath is worsened, will switch to a beta selective agent such as metoprolol. Treat pulmonary disorders as clinically appropriate Will repeat an echocardiogram in a month to evaluate ejection fraction Return to clinic in 6 months or sooner should problems arise Tracey David MD, MPH, [facility], [facility], [facility] Interventional Cardiology Pager Email: [email or web address] Progress note 07-03-2023 Note Date & Type [...] time Follow-up with Dr. David in the [facility] in 2 months Follow-up with Dr. Clover Barrera his primary care physician in [place] PROCEDURES: Ultrasound-guided access to the left radial [...] left radial artery was obtained. A 6 Cymraes glide sheath was inserted without difficulty. Bilateral [...] low normal ejection fraction, abnormal stress test [facility] Progress note 05-26-2023 Note Date & Type Note Facility 05-26-2023 Note [facility] Cardiology Clinic Note Chief Complaint: New patient [...] Normal sinus at a rate of 67. [place]: Normal T-waves: Inverted in aVL ST-segments: Normal [...] above Ehab Karina David MD, MPH, FACC, [facility], [facility] Interventional Cardiology Pager E (more content not included)... [facility] Summary Purpose Family History No Family History Records FoundNo Family History Records Found Advance Directives No Advanced Directives Records FoundNo Advanced Directives Records Found Additional Source Comments (unrecognized sect ion and content) No Status Records FoundNo Status Records Found INFORMATION SOURCE (unrecogn ized section and content) DATE CREATED AUTHOR 11/10/2020 [facility] DATE CREATED AUTHOR 'S ORGANIZ ATION 09/02/2023 [facility] FOR RECORDS PERTAINING TO PATIENTS WHO [...] BE BASED ON THE PRIMARY CLINICAL RECORDS. [employer] provides no warranty or guarantee of the accuracy or completeness of information in this document.
== END 2023-10-03 07:28 | disposition home or self-care (01) ==
LOC: CARD 07:29
PROVIDERS: PCP Family Medicine; Visit Provider Internal Medicine Interventional Cardiology
DX: R06.09 Other forms of dyspnea (principal)
CPT/HCPCS: 93306; 93356

== ENCOUNTER 2024-02-27 08:09 | Outpatient (OUT) | payer OTHER, SELFPAY ==
--- OUTSIDE RECORDS SUMMARY | 2024-02-27 08:32 | XMS_ITS | CCD ---
Author Organization [facility] Care Team Providers Care Plasterer Rough Name Role Phone BRUCE, DR GALO Primary [...] EHAB Attending Unavailable [place], EHAB Referring Unavailable [place], EHAB Attending Unavailable Gary Beltrán MD Attending Provider Problems Active Problems Problem Classification Problem Date Documented Da te Episodic/Chronic Chronic obstructive pulmonary disease and bronchiectasis (1 source) Bronchitis, not specified as acute or chronic; Translations: [BRONCHITIS NOT SPEC ACUTE/CHRON] Onset: 11-03-2020 Episodic Congestive heart failure; nonhypertensive (4 sources) Chronic systolic (congestive) heart failure; Translations: [Acute systolic (congestive) heart failure] Onset: 06-17-2023 Chronic Essential hypertension (2 sources) Essential (primary) hypertension; Translations: [Essential (primary) hypertension] Onset: 05-26-2023 Chronic Unclassified (3 sources) CONTACT W/AND (SUSP) EXPOS COVID-19; Translations: [CONTACT W/AND (SUSP) EXPOS COVID-19] Onset: 11-03-2020 Past or Other Problems Problem Classification Problem Date Documented Date Episodic/Chronic Immunizations and screening for infectious disease [...] study; Translations: [Abnormal electrocardiogram [ECG] [EKG]] Onset: 05-26-2023 Episodic Pneumonia (except that caused by tuberculosis or sexually transmitted disease) (1 source) Pneumonia, unspecified organism; Translations: [PNEUMONIA UNSPECIFIED ORGANISM] Onset: 02-10-2020 Episodic Unclassified (1 source) CONTACT W/AND (SUSP) EXPOS COVID-19; Translations: [CONTACT W/AND (SUSP) EXPOS COVID-19] Onset: 10-24-2020 Results Test Name Value Interpretation Reference Range Facil ity Office Visiton 02-18-2024 Follow-up visit [id number] Lissy Samuel 1960 M Date Provider Department Center 02/18/2024 271-TRACEY DAVID CARD [facility] Family History Problem Relation Age of Onset No Known Problems Mother No Known Problems Father Coronary artery disease Father's Brother Family Status - Relation Status Age at Mother Father Father's Brother Level of Service:16701 NC OFFICE/OUTPATIENT ESTABLISHED MOD MDM 30 MIN Normal [facility] Office Visiton 09-02-2023 Follow-up visit [id number] Lissy Samuel 1960 M Date Provider Department Center 09/02/2023 271-TRACEY DAVID Family History Problem Relation Age of Onset No Known Problems Mother No Known Problems Father Coronary artery disease Father's Brother Family Status - Relation Status Age at Mother Father Father's Brother Level of Service:00043 NC OFFICE/OUTPATIENT ESTABLISHED MOD MDM 30 MIN Normal [facility] Orders Onlyon 08-29-2023 Orders Only [id number] Lissy Samuel 1960 M Date Provider Department Center 08/29/2023 [id number], HISTORICAL APRYL [facility] Family History Problem Relation Age of Onset No Known Problems Mother No Known Problems Father Coronary artery disease Father's Brother Family Status - Relation Status Age at Mother Father Father's Brother Normal [facility] ANEBonilla 07-03-2023 ANES Attestation signed by Tracey David MD at 07/03/2023 9:24 AM Tracey David MD, MPH, [facility], [facility], [facility] Interventional Cardiology Pager Email: [email or web address] Patient: Lissy Samuel Procedure Information Date/Time: 07/03/23 1030 Procedure: Coronary angiography (Bilateral) - RHC/CORS via RIJ and L radial Location: [facility] AUTOCLAVE OPERATOR 2 BIPLANE / [facility] (Cath) Providers: Tracey David MD Clinical information reviewed: Allergies Meds Physical Exam Airway Mallampati: III Cardiovascular Rhythm: regular Dental Pulmonary Abdominal Anesthesia Plan ASA 3 other (Subconscious sedation. ) Additional Equipment [facility] Attestation signed by Tracey David MD at 07/03/2023 9:24 AM Tracey David MD, MPH, [facility], [facility], [facility] Interventional Cardiology Pager Email: [email or web address] History Of Present Illness Lissy Samuel is [...] Relevant Results Stress Test Requesting physician: Clover Regan Procedure: Exercise stress test General Information: Reason for Stress Test: Dyspnea Cardiac History and Risk Factors: Former smoker Resting 12 - Lead Electrocardiogram: Rate & rhythm: Normal sinus at a rate of 67. [place]: Normal T-waves: Inverted in aVL ST-segments: Normal [...] heart rate, will proceed with coronary angiogram. [facility] NURSNOTEon 07-03-2023 NURSNOTE RN educated pt on d/c instructions. RN encouraged pt to voice any questions or concerns. Pt verbalizes no questions or concerns at this time. Pt was wheeled off of unit with all of belongings. [facility] 36on 06-12-2023 36 MD Afshan Connelly MA Please let pt know his echo and stress test are abnormal; his EF is mildly reduced (45-50%) I would recommend a cath: RHC/CORS via RIJ and L radial if he would like to proceed. Thanks Spoke with patient and he is agreeable to go for heart cath. Dr. Regan's office made aware. Orders entered. [facility] Telephoneon 06-12-2023 Telephone [id number] Lissy Samuel 1960 M Date Provider Department Center 06/12/2023 271-TRACEY DAVID APRYL [facility] Family History Problem Relation Age of Onset No Known Problems Mother No Known Problems Father Coronary artery disease Father's Brother Family Status - Relation Status Age at Mother Father Father's Brother [facility] Office Visiton 05-26-2023 Follow-up visit [id number] Lissy Samuel 1960 M Date Provider Department Center 05/26/2023 271-TRACEY DAVID CARD [facility] Family History Problem Relation Age of Onset No Known Problems Mother No Known Problems Father Coronary artery disease Father's Brother Family Status - Relation Status Age at Mother Father Father's Brother Level of Service:15598 [place] OFFICE/OUTPATIENT NEW MODERATE MDM 45 MINUTES Normal [facility] Covid-19 PCR (CVDTBH)on 10-06 SARS-CoV-2 (COVID-19) RNA FAIZAN+probe Ql (Unsp spec) Not detected Normal NOT DETECTED [facility] Comment on above: Result Comment: This test is not yet approved or cleared by the [place] FDA. When there are no FDA-approved or cleared tests available, and other criteria are met, FDA can make tests available under an emergency access mechanism called an Emergency Use Authorization (EUA). The EUA for this test is supported by the Telephone of Health and Human Service's (HHS's) declaration [...] consistent with SARS-CoV-2. Performed By: #### B GARMENT INSPECTOR, CMP, TROP #### [facility] [address] [place] [address] Katarina Nielsen SYMPTOMATIC COVID-19 ANTIGEN on 10-24-2020 EUA Statement SEE BELOW Normal [facility] Comment on above: Result Comment: This test [...] is revoked sooner. Performed By: #### B GARMENT INSPECTOR, CMP, TROP #### [facility] [address] [place] [address] Katarina Nielsen SARS-CoV-2 (COVID-19) RNA FAIZAN+probe Ql (Unsp spec) Negative Normal NEGATIVE [facility] Comment on above: Performed By: #### B GARMENT INSPECTOR, CMP, TROP #### [facility] [address] [place] [address] Katarina Nielsen BNPon 02-08-2020 Natriuretic peptide B (Bld) [Mass/Vol] 228.0 pg/mL Normal <=900.[address] [facility] Comment on above: Performed By: #### B GARMENT INSPECTOR, CMP, TROP #### [facility] [address] [place] [address] Katarina Gia CBC AUTO DIFFon 02-08-2020 BASO # 0.1 103/ul Normal 0.0-0.[address] [facility] Comment on above: Performed By: #### B GARMENT INSPECTOR, CMP, TROP #### [facility] [address] [place] [address] Katarina Gia Basophils/100 WBC (Bld) 0.7 % Normal 0.2-2.[address] [facility] Comment on above: Performed By: #### B GARMENT INSPECTOR, CMP, TROP #### [facility] [address] [place] [address] Katarina Gia EO # 0.1 103/ul Normal 0.0-0.[address] [facility] Comment on above: Performed By: #### B GARMENT INSPECTOR, CMP, TROP #### [facility] [address] [place] [address] Katarina Gia Eosinophils/100 WBC (Bld) 0.6 % Critically low 0.9-7.[address] [facility] Comment on above: Performed By: #### B GARMENT INSPECTOR, CMP, TROP #### [facility] [address] [place] [address] Katarina Gia Erythrocyte distribution width (RBC) [Ratio] 14.0 % Normal 11.0-15.0 [facility] Comment on above: Performed By: #### B GARMENT INSPECTOR, CMP, TROP #### [facility] [address] [place] [address] Katarina Gia Hematocrit (Bld) [Volume fraction] 45.7 % Normal 42.0-54.0 [facility] Comment on above: Performed By: #### B GARMENT INSPECTOR, CMP, TROP #### [facility] [address] [place] [address] Katarina Gia Hemoglobin (Bld) [Mass/Vol] 15.1 g/dL Normal 14.0-18.0 [facility] Comment on above: Performed By: #### B GARMENT INSPECTOR, CMP, TROP #### [facility] [address] [place] [address] Katarina Gia IG # 0.02 10e3/ul Normal 0.00-0.[address] [facility] Comment on above: Performed By: #### B GARMENT INSPECTOR, CMP, TROP #### [facility] [address] [place] [address] Katarina Gia IG % 0.2 % Normal 0.0-0.5 [facility] Comment on above: Performed By: #### B GARMENT INSPECTOR, CMP, TROP #### [facility] [address] [place] [address] Katarina Gia LYMPH # 1.7 103/ul Normal 1.2-3.[address] [facility] Comment on above: Performed By: #### B GARMENT INSPECTOR, CMP, TROP #### [facility] [address] [place] [address] Katarina Gia Lymphocytes/100 WBC (Bld) 16.7 % Critically low 20.5-60.0 [facility] Comment on above: Performed By: #### B GARMENT INSPECTOR, CMP, TROP #### [facility] [address] [place] [address] Katarina Gia MANUAL DIFF REQ NO Normal [facility] Comment on above: Performed By: #### B GARMENT INSPECTOR, CMP, TROP #### [facility] [address] [place] [address] Katarina Nielsen MCH (RBC) [Entitic mass] 29.6 pg Normal 25.9-34.[address] [facility] Comment on above: Performed By: #### B GARMENT INSPECTOR, CMP, TROP #### [facility] [address] [place] [address] Katarina Nielsen MCHC (RBC) [Mass/Vol] 33.0 g/dL Normal 29.9-35.[address] [facility] Comment on above: Performed By: #### B GARMENT INSPECTOR, CMP, TROP #### [facility] [address] [place] [address] Katarina Nielsen MCV (RBC) [Entitic vol] 89.6 fL Normal 80.0-94.[address] [facility] Comment on above: Performed By: #### B GARMENT INSPECTOR, CMP, TROP #### [facility] [address] [place] [address] Katarina Gia MONO # 1.2 103/ul Critically high 0.3-0.8 [facility] Comment on above: Performed By: #### B GARMENT INSPECTOR, CMP, TROP #### [facility] [address] [place] [address] Katarina Nielsen Monocytes/100 WBC (Bld) 11.4 % Normal 1.7-12.[address] [facility] Comment on above: Performed By: #### B GARMENT INSPECTOR, CMP, TROP #### [facility] [address] [place] [address] Katarina Nielsen NEUT # 7.1 103/ul Critically high 1.4-6.5 [facility] Comment on above: Performed By: #### B GARMENT INSPECTOR, CMP, TROP #### [facility] [address] [place] [address] Katarina Gia Neutrophils/100 WBC (Bld) 70.4 % Normal 43.0-75.[address] [facility] Comment on above: Performed By: #### B GARMENT INSPECTOR, CMP, TROP #### [facility] [address], [place] [address] Katarina Nielsen Platelet mean volume (Bld) [Entitic vol] 9.5 fL Normal 9.5-13.[address] [facility] Comment on above: Performed By: #### B GARMENT INSPECTOR, CMP, TROP #### [facility] [address], [place] [address] Katarina Nielsen PLT 339 103/ul Normal 150-[address] [facility] Comment on above: Performed By: #### B GARMENT INSPECTOR, CMP, TROP #### [facility] [address], [place] [address] Katarina Nielsen RBC 5.10 106/ul Normal 4.70-6.[address] [facility] Comment on above: Performed By: #### B GARMENT INSPECTOR, CMP, TROP #### [facility] [address], [place] [address] Katarina Nielsen WBC 10.1 103/ul Normal 4.0-11.[address] [facility] Comment on above: Performed By: #### B GARMENT INSPECTOR, CMP, TROP #### [facility] [address], [place] [address] Katarina Nielsen CTA CHEST WO W CONon [...] ANTONIO REDD Date: 2020-02-08 14:[address] [facility] PROF 14(COMP METB)on 020 Albumin [Mass/Vol] 3.7 g/dL Normal 3.5-5.0 [facility] Comment on above: Performed By: #### B GARMENT INSPECTOR, CMP, TROP #### [facility] [address] [place] [address] Katarina Gia Albumin/Globulin [Mass ratio] 1.1 {ratio} Normal [facility] Comment on above: Performed By: #### B GARMENT INSPECTOR, CMP, TROP #### [facility] [address] [place] [address] Katarina Gia ALP [Catalytic activity/Vol] 72 U/L Normal 38-126 [facility] Comment on above: Performed By: #### B GARMENT INSPECTOR, CMP, TROP #### [facility] [address] [place] [address] Katarina Gia ALT [Catalytic activity/Vol] 43 U/L Normal 21-72 [facility] Comment on above: Performed By: #### B GARMENT INSPECTOR, CMP, TROP #### [facility] [address] [place] [address] Katarina Gia Anion gap [Moles/Vol] 13.1 mmol/L Normal [facility] Comment on above: Performed By: #### B GARMENT INSPECTOR, CMP, TROP #### [facility] [address] [place] [address] Katarina Gia AST [Catalytic activity/Vol] 31 U/L Normal 17-59 [facility] Comment on above: Performed By: #### B GARMENT INSPECTOR, CMP, TROP #### [facility] [address] [address] Katarina Gia Bilirubin [Mass/Vol] 0.5 mg/dL Normal 0.2-1.[address] [facility] Comment on above: Performed By: #### B GARMENT INSPECTOR, CMP, TROP #### [facility] [address] [address] Katarina Gia Calcium [Mass/Vol] 9.2 mg/dL Normal 8.4-10.2 [facility] Comment on above: Performed By: #### B GARMENT INSPECTOR, CMP, TROP #### [facility] [address] [place] [address] Katarina Gia Chloride [Moles/Vol] 96 mmol/L Critically low 98-[address] [facility] Comment on above: Performed By: #### B GARMENT INSPECTOR, CMP, TROP #### [facility] [address] [place] [address] Katarina Gia CO2 [Moles/Vol] 27.0 mmol/L Normal 22.0-30.0 [facility] Comment on above: Performed By: #### B GARMENT INSPECTOR, CMP, TROP #### [facility] [address] [place] [address] Katarina Gia Creatinine [Mass/Vol] 0.88 mg/dL Normal 0.66-1.[address] [facility] Comment on above: Performed By: #### B GARMENT INSPECTOR, CMP, TROP #### [facility] [address] [place] [address] Katarina Gia EGFR-AF CITIZEN [place] >60 Normal >=60 [facility] Comment on above: Performed By: #### B GARMENT INSPECTOR, CMP, TROP #### [facility] [address] [place] [address] Katarina Gia EGFR-NON AF CITIZEN OF [place] >60 Normal >=[address] [facility] Comment on above: Performed By: #### B GARMENT INSPECTOR, CMP, TROP #### [facility] [address] [place] [address] Katarina Gia Globulin (S) [Mass/Vol] 3.5 g/dL Normal [facility] Comment on above: Performed By: #### B GARMENT INSPECTOR, CMP, TROP #### [facility] [address] [place] [address] Katarina Gia Glucose [Mass/Vol] 93 mg/dL Normal 74-106 [facility] Comment on above: Performed By: #### B GARMENT INSPECTOR, CMP, TROP #### [facility] [address] [place] [address] Katarina Gia Potassium [Moles/Vol] 4.1 mmol/L Normal 3.4-5.0 [facility] Comment on above: Performed By: #### B GARMENT INSPECTOR, CMP, TROP #### [facility] [address] [place] [address] Katarina Gia Protein [Mass/Vol] 7.2 g/dL Normal 6.1-8.2 [facility] Comment on above: Performed By: #### B GARMENT INSPECTOR, CMP, TROP #### [facility] [address] [place] [address] Katarina Gia Sodium [Moles/Vol] 132 mmol/L Critically low 137-145 [facility] Comment on above: Performed By: #### B GARMENT INSPECTOR, CMP, TROP #### [facility] [address] [place] [address] Katarina Gia Urea nitrogen [Mass/Vol] 13.0 mg/dL Normal 9.0-20.0 [facility] Comment on above: Performed By: #### B GARMENT INSPECTOR, CMP, TROP #### [facility] [address] [place] [address] Katarina Gia Urea nitrogen/Creatinin e [Mass ratio] 14.8 mg/mg Normal [facility] Comment on above: Performed By: #### B GARMENT INSPECTOR, CMP, TROP #### [facility] [address] [place] [address] Katarina Gia PROTIMEon 02-08-2020 INR Coag (PPP) [Relative time] 0.97 {INR} Normal [facility] Comment on above: Performed By: #### B GARMENT INSPECTOR, CMP, TROP #### [facility] [address] [place] [address] Katarina Gia INR GUIDELINES SEE BELOW Normal [facility] Comment on above: Result Comment: TEENA RED INR: 2.0 - 3.0 CONDITIONS NOT LISTED BELOW 2.5 - 3.5 FOR PROSTHETIC HEART VALVE REPLACEMENT 2.5 - 3.5 RECURRENT THROMBOSIS Performed By: #### B GARMENT INSPECTOR, CMP, TROP #### [facility] [address] [place] [address] Katarina Gia PT Coag (PPP) [Time] 10.3 s Normal 9.0-11.[address] [facility] Comment on above: Performed By: #### B GARMENT INSPECTOR, CMP, TROP #### [facility] [address] [place], [place] [id number] Katarina Nielsen PT NORMAL PLEASE NOTE: NORMAL RANGE CHANGE 12-23-2013 DUE TO REAGENT LOT CHANGE Normal [facility] Comment on above: Performed By: #### B GARMENT INSPECTOR, CMP, TROP #### [facility] [address] [address] Katarina Neilsen PTTon 02-08-2020 aPTT Coag (Bld) [Time] 27.2 s Normal 22.3-36.[address] [facility] Comment on above: Performed By: #### B GARMENT INSPECTOR, CMP, TROP #### [facility] [address] [place] [address] Katarina Nielsen PTT NORMAL PLEASE NOTE: NORMAL RANGE CHANGE 03-01-2015 DUE TO REAGENT LOT CHANGE Normal [facility] Comment on above: Performed By: #### B GARMENT INSPECTOR, CMP, TROP #### [facility] [address] [place] [address] Katarina Nielsen Rapid Covid-19 PCRon 020 SiSaf LDT Info SEE BELOW Normal [facility] Comment on above: Result Comment: This test is not yet approved or cleared by the [place] Food and Drug Administration (FDA) . This test was developed by [employer], [facility]. The performance characteristics of this test were validated by [facility]. The results are not intended to be used as the sole means for clinical diagnosis or patient management decisions. [facility] is authorized under Clinical Laboratory Improvement Amendments (CLIA) to perform high-complexity testing. When diagnostic testing is negative, the possibility of a false negative should be considered in the context of a patients recent exposures and the presence of clinical signs and symptoms consistent with SARS-CoV-2. Performed By: #### B GARMENT INSPECTOR, CMP, TROP #### [facility] [address] [place], [place] [id number] Katarina Nielsen SARS-CoV-2 (COVID-19) RNA FAIZAN+probe Ql (Unsp spec) Not detected Normal NOT DETECTED [facility] Comment on above: Result Comment: . Performed By: #### B GARMENT INSPECTOR, CMP, TROP #### [facility] [address] [place] [address] Katarina Nielsen TROPONIN - Ion 02-08-2020 TROP <0.012 Normal <=0.034 [facility] Comment on above: Performed By: #### B GARMENT INSPECTOR, CMP, TROP #### [facility] [address] [place] [address] Katarina Gia TROPONIN RANGE SEE BELOW Normal [facility] Comment on above: Result Comment: <0.0 34 ng/ml NEGATIVE 0.034-0.119 INDETERMINATE 0.120 AMI CUT OFF Performed By: #### B GARMENT INSPECTOR, CMP, TROP #### [facility] [address] [place] [address] Katarinavictoria Nielsen TROP <0.012 Normal <=0.034 [facility] Comment on above: Performed By: #### B GARMENT INSPECTOR, CMP, TROP #### [facility] [address] [place] [address] Katarinavictoria Nielsen TROPONIN RANGE SEE BELOW Normal [facility] Comment on above: Result Comment: <0.0 34 ng/ml NEGATIVE 0.034-0.119 INDETERMINATE 0.120 AMI CUT OFF Performed By: #### B GARMENT INSPECTOR, CMP, TROP #### [facility] [address] [place] [address] Katarinavictoria Nielsen XR CHEST 1 Von 02-08-2020 [...] AILYN ROSE Date: 2020-02-08 12:[address] [facility] BNPon 02-03-2020 Natriuretic peptide B (Bld) [Mass/Vol] 81.0 pg/mL Normal <=900.[address] [facility] Comment on above: Performed By: #### C MP, T4, TSH, BNP, FT3 #### [facility] [address] [place] [address] Katarina Gia CBC AUTO DIFFon 02-03-2020 BASO # 0.1 103/ul Normal 0.0-0.[address] [facility] Comment on above: Performed By: #### B GARMENT INSPECTOR, CMP, TROP #### [facility] [address] [place] [address] Katarina Gia Basophils/100 WBC (Bld) 0.9 % Normal 0.2-2.[address] [facility] Comment on above: Performed By: #### B GARMENT INSPECTOR, CMP, TROP #### [facility] [address] [place] [address] Katarina Gia EO # 0.1 103/ul Normal 0.0-0.[address] [facility] Comment on above: Performed By: #### B GARMENT INSPECTOR, CMP, TROP #### [facility] [address] [place] [address] Katarina Gia Eosinophils/100 WBC (Bld) 0.9 % Normal 0.9-7.[address] [facility] Comment on above: Performed By: #### B GARMENT INSPECTOR, CMP, TROP #### [facility] [address] [place] [address] Katarina Gia Erythrocyte distribution width (RBC) [Ratio] 14.2 % Normal 11.0-15.[address] [facility] Comment on above: Performed By: #### B GARMENT INSPECTOR, CMP, TROP #### [facility] [address] [place] [address] Katarina Gia Hematocrit (Bld) [Volume fraction] 45.1 % Normal 42.0-54.[address] [facility] Comment on above: Performed By: #### B GARMENT INSPECTOR, CMP, TROP #### [facility] [address] [place] [address] Katarina Gia Hemoglobin (Bld) [Mass/Vol] 14.3 g/dL Normal 14.0-18.[address] [facility] Comment on above: Performed By: #### B GARMENT INSPECTOR, CMP, TROP #### [facility] [address], [place] [address] Katarina Gia IG # 0.04 10e3/ul Critically high 0.00-0.03 [facility] Comment on above: Performed By: #### B GARMENT INSPECTOR, CMP, TROP #### [facility] [address], [place] [address] Katarina Gia IG % 0.5 % Normal 0.0-0.5 [facility] Comment on above: Performed By: #### B GARMENT INSPECTOR, CMP, TROP #### [facility] [address] [address] Katarina Gia LYMPH # 1.9 103/ul Normal 1.2-3.[address] [facility] Comment on above: Performed By: #### B GARMENT INSPECTOR, CMP, TROP #### [facility] [address] [address] Katarina Gia Lymphocytes/100 WBC (Bld) 24.5 % Normal 20.5-60.0 [facility] Comment on above: Performed By: #### B GARMENT INSPECTOR, CMP, TROP #### [facility] [address] [address] Katarina Gia MANUAL DIFF REQ NO Normal [facility] Comment on above: Performed By: #### B GARMENT INSPECTOR, CMP, TROP #### [facility] [address] [address] Katarina Gia MCH (RBC) [Entitic mass] 28.6 pg Normal 25.9-34.0 [facility] Comment on above: Performed By: #### B GARMENT INSPECTOR, CMP, TROP #### [facility] [address] [address] Katarina Gia MCHC (RBC) [Mass/Vol] 31.7 g/dL Normal 29.9-35.[address] [facility] Comment on above: Performed By: #### B GARMENT INSPECTOR, CMP, TROP #### [facility] [address] [address] Katarina Gia MCV (RBC) [Entitic vol] 90.2 fL Normal 80.0-94.0 [facility] Comment on above: Performed By: #### B GARMENT INSPECTOR, CMP, TROP #### [facility] [address] [address] Katarina Gia MONO # 1.0 103/ul Critically high 0.3-0.8 [facility] Comment on above: Performed By: #### B GARMENT INSPECTOR, CMP, TROP #### [facility] [address] [address] Katarina Gia Monocytes/100 WBC (Bld) 12.4 % Critically high 1.7-12.[address] [facility] Comment on above: Performed By: #### B GARMENT INSPECTOR, CMP, TROP #### [facility] [address] [address] Katarina Gia NEUT # 4.8 103/ul Normal 1.4-6.[address] [facility] Comment on above: Performed By: #### B GARMENT INSPECTOR, CMP, TROP #### [facility] [address] [place], [place] [id number] Katarina Gia Neutrophils/100 WBC (Bld) 60.8 % Normal 43.0-75.[address] [facility] Comment on above: Performed By: #### B GARMENT INSPECTOR, CMP, TROP #### [facility] [address] [address] Katarina Gia Platelet mean volume (Bld) [Entitic vol] 9.3 fL Critically low 9.5-13.5 [facility] Comment on above: Performed By: #### B GARMENT INSPECTOR, CMP, TROP #### [facility] [address] [address] Katarina Gia PLT 323 103/ul Normal 150-[address] [facility] Comment on above: Performed By: #### B GARMENT INSPECTOR, CMP, TROP #### [facility] [address] [address] Katarina Gia RBC 5.00 106/ul Normal 4.70-6.[address] [facility] Comment on above: Performed By: #### B GARMENT INSPECTOR, CMP, TROP #### [facility] [address] [address] Katarina Gia WBC 7.9 103/ul Normal 4.0-11.[address] [facility] Comment on above: Performed By: #### B GARMENT INSPECTOR, CMP, TROP #### [facility] [address] [place], [place] [id number] Katarinavictoria Nielsen FREE T3on 02-03-2020 Free T3 [Mass/Vol] 2.89 pg/mL Normal 2.77-5.27 [facility] Comment on above: Performed By: #### C MP, T4, TSH, BNP, FT3 #### [facility] [address] [place], [place] [address] Katarinavictoria Nielsen PROF 14(COMP METB)on 020 Albumin [Mass/Vol] 3.8 g/dL Normal 3.5-5.0 [facility] Comment on above: Performed By: #### C MP, T4, TSH, BNP, FT3 #### [facility] [address] [place] [address] Katarinavictoria Nielsen Albumin/Globulin [Mass ratio] 1.2 {ratio} Normal [facility] Comment on above: Performed By: #### C MP, T4, TSH, BNP, FT3 #### [facility] [address] [place] [address] Katarina Gia ALP [Catalytic activity/Vol] 73 U/L Normal 38-126 [facility] Comment on above: Performed By: #### C MP, T4, TSH, BNP, FT3 #### [facility] [address] [place] [address] Katarina Gia ALT [Catalytic activity/Vol] 52 U/L Normal 21-[address] [facility] Comment on above: Performed By: #### C MP, T4, TSH, BNP, FT3 #### [facility] [address] [place] [address] Katarina Gia Anion gap [Moles/Vol] 8.6 mmol/L Normal [facility] Comment on above: Performed By: #### C MP, T4, TSH, BNP, FT3 #### [facility] [address] [place] [address] Katarina Gia AST [Catalytic activity/Vol] 35 U/L Normal 17-[address] [facility] Comment on above: Performed By: #### C MP, T4, TSH, BNP, FT3 #### [facility] [address] [place] [address] Katarina Gia Bilirubin [Mass/Vol] 0.4 mg/dL Normal 0.2-1.[address] [facility] Comment on above: Performed By: #### C MP, T4, TSH, BNP, FT3 #### [facility] [address] [place] [address] Katarina Gia Calcium [Mass/Vol] 8.9 mg/dL Normal 8.4-10.2 [facility] Comment on above: Performed By: #### C MP, T4, TSH, BNP, FT3 #### [facility] [address] [place] [address] Katarina Gia Chloride [Moles/Vol] 101 mmol/L Normal 98-[address] [facility] Comment on above: Performed By: #### C MP, T4, TSH, BNP, FT3 #### [facility] [address] [place] [address] Katarina Gia CO2 [Moles/Vol] 32.9 mmol/L Critically high 22.0-30.[address] [facility] Comment on above: Performed By: #### C MP, T4, TSH, BNP, FT3 #### [facility] [address] [place] [address] Katarina Gia Creatinine [Mass/Vol] 0.81 mg/dL Normal 0.66-1.[address] [facility] Comment on above: Performed By: #### C MP, T4, TSH, BNP, FT3 #### [facility] [address] [place] [address] Katarina Gia EGFR-AF CITIZEN [place] >60 Normal >=60 [facility] Comment on above: Performed By: #### C MP, T4, TSH, BNP, FT3 #### [facility] [address] [place] [address] Katarina Gia EGFR-NON AF CITIZEN OF [place] >60 Normal >=[address] [facility] Comment on above: Performed By: #### C MP, T4, TSH, BNP, FT3 #### [facility] [address] [place] [address] Katarina Gia Globulin (S) [Mass/Vol] 3.3 g/dL Normal [facility] Comment on above: Performed By: #### C MP, T4, TSH, BNP, FT3 #### [facility] [address] [address] Katarina Gia Glucose [Mass/Vol] 95 mg/dL Normal 74-106 [facility] Comment on above: Performed By: #### C MP, T4, TSH, BNP, FT3 #### [facility] [address] [address] Katarina Gia Potassium [Moles/Vol] 4.5 mmol/L Normal 3.4-5.[address] [facility] Comment on above: Performed By: #### C MP, T4, TSH, BNP, FT3 #### [facility] [address] [place] [address] Katarina Gia Protein [Mass/Vol] 7.1 g/dL Normal 6.1-8.2 [facility] Comment on above: Performed By: #### C MP, T4, TSH, BNP, FT3 #### [facility] [address] [place] [address] Katarina Gia Sodium [Moles/Vol] 138 mmol/L Normal 137-145 [facility] Comment on above: Performed By: #### C MP, T4, TSH, BNP, FT3 #### [facility] [address] [place] [address] Katarina Gia Urea nitrogen [Mass/Vol] 13.0 mg/dL Normal 9.0-20.[address] [facility] Comment on above: Performed By: #### C MP, T4, TSH, BNP, FT3 #### [facility] [address] [place] [address] Katarina Gia Urea nitrogen/Creatinin e [Mass ratio] 16.0 mg/mg Normal [facility] Comment on above: Performed By: #### C MP, T4, TSH, BNP, FT3 #### [facility] [address] [place] [address] Katarina Gia T4on 02-03-2020 T4 [Mass/Vol] 6.20 ug/dL Normal 5.53-11.00 [facility] Comment on above: Performed By: #### C MP, T4, TSH, BNP, FT3 #### [facility] [address] [address] Katarina Nielsen TSHon 02-03-2020 TSH 5.662 uIU/mL Critically high 0.470-4.680 [facility] Comment on above: Performed By: #### B GARMENT INSPECTOR, CMP, TROP #### [facility] [address] [address] Katarina Nielsen TSH RANGE SEE BELOW Normal [facility] Comment on above: Result Comment: <0.3 4 UIU/ml HYPERTHYROID 0.34-5.60 UIU/ml EUTHYROID >5.60 UIU/ml HYPOTHYROID Performed By: #### B GARMENT INSPECTOR, CMP, TROP #### [facility] [address] [address] Katarina Nielsen COVID-19 PCRon 02-02-2020 SARS-CoV-2 (COVID-19) RNA FAIZAN+probe Ql (Unsp spec) Not detected Normal Not Detected [facility] Comment on above: Result Comment: This nucleic acid amplification test was developed and its performance characteristics determined by [employer]. Nucleic acid amplification tests include PCR and [...] in this assay. Performed By: #### B GARMENT INSPECTOR, CMP, TROP #### [facility] [address] [address] Katarina Nielsen NM STRESS/REST MULTIon 01-30 NM STRESS/REST MULTI Patient: LISSY SAMUEL Exam Date: 01/31/2020 : 1960 Gender:M Ordering : DR CLOVER REGAN . Admission #: [id number] Family : Order #: [id number] CLICK HERE TO VIEW EXAM RADIOLOGY REPORT [...] MD on 01/31/2020 at 14:[address] [facility] COVID-19 PCRon 01-21-2020 SARS-CoV-2 (COVID-19) RNA FAIZAN+probe Ql (Unsp spec) Not detected Normal Not Detected [facility] Comment on above: Result Comment: This nucleic acid amplification test was developed and its performance characteristics determined by [employer]. Nucleic acid amplification tests include PCR and [...] assay. Performed By: #### C VDPCR #### [facility] [address] [place] [address] Katarina Nielsen Encounters Encounter Date Encounter Type Care Provider Facility Start: 02-25-2024 End: 02-25-2024 ambulatory Gary Beltrán MD Work Phone: [facility] Work Phone: Start: 02-25-2024 End: 02-25-2024 Departed Referred Gary Beltrán MD Work Phone: [facility] Work Phone: Start: 02-18-2024 End: 02-18-2024 ambulatory [facility] Start: 09-02-2023 End: 09-02-2023 ambulatory [facility] Start: 07-03-2023 End: 07-03-2023 ambulatory [facility] Start: 05-26-2023 End: 05-26-2023 ambulatory [facility] Start: 10-24-2020 End: 10-25-[address] CLOVER [...] Facility:[facility]1 Payers Date Payer Category Payer Unknown [id number] 2.16.84 [id number] 1960 Unknown [id number] 2.16.84 [id number] 1960 Unknown [id number] 2.16.84 [id number] 1960 Unknown [id number] 2.16.84 [id number] 1960 Unknown [id number] 2.16.84 [id number] 1960 Unknown [id number] 2.16.84 [id number] 1960 Unknown [id number] 2.16.84 [id number] 1959 Private Health Insurance [id number] Self-pay 1959 Unknown [id number] Social History Date Type Detail Facility Tobacco smoking stat [facility] Unknown if ever smoked [facility] Work Phone: Start: 02-26-2024 Sex Male (finding) [facility] Start: 1960 Sex Assigned At Male F [facility] Progress note 02-18-2024 Note Date & Type Note Facility 02-18-2024 Note [facility] Cardiology Clinic Note Chief Complaint: Patient here for 6 mo follow up CHF, hypertension, and dyslipidemia. He was started on carvedilol at last apt in August 2023. He had an echo in September. He's still doing well, denies chest pain and palpitations. MARTINEZ is the same, but he says I feel fine . HPI: Lissy Samuel is a 63 y.o. [...] Systems Cardiovascular: Positive for dyspnea on exertion (stable). All other systems reviewed and are negative. Past Medical History He has a past medical history of Hyperlipidemia, Hypertension, and Hypothyroidism. Surgical History He has a past surgical history that includes Cardiac catheterization. Social History He reports that he quit [...] no known allergies. Medications Current Outpatient Medications: Breo Ellipta 100-25 mcg/dose inhaler, Inhale 1 puff 1 (one) time each day at the same time., Disp: , Rfl: carvedilol (Coreg) 3.125 mg tablet, Take 1 tablet (3.125 mg) by mouth with breakfast and with evening meal., Disp: 180 tablet, Rfl: 3 levothyroxine (Synthroid, Levoxyl) 75 mcg tablet, take [...] Disp: , Rfl: Last Recorded Vitals BP 120/80 (BP Location: Left arm, Patient Position: Sitting) Pulse 70 Ht 1.88 m (6' 2 ) Wt 91.6 kg (202 lb) SpO2 94% BMI 25.94 kg/m??? Physical Examination: GENERAL: alert and oriented [...] time Follow-up with Dr. David in the [facility] in 2 months Follow-up with Dr. Clover Regan his primary care physician in [place] PROCEDURES: Ultrasound-guided access to the left radial artery, bilateral selective coronary angiography via a left radial approach Echocardiogram 10/03/2023: Global left ventricular systolic function is low normal limits; ejection fraction 50 to 55% Normal right ventricular size and systolic function Normal diastolic function No significant valvular dysfunction Normal right-sided pressures Assessment: Heart failure With recovered ejection fraction Hypertension - Poorly controlled Dyspnea on exertion; recently diagnosed with asthma Hypothyroidism Plan: Continue optimal medical therapy for heart failure with midrange ejection fraction; he is on lisinopril, will start Coreg 3.125 mg p.o. twice daily and increase as tolerated. If his shortness of breath is worsened, will switch to a beta selective agent such as metoprolol. Could add an SGLT2 inhibitor in the form of Farxiga Check a BMP in a week T (more content not included)... [facility] Progress note 09-02-2023 Note Date & Type Note Facility 09-02-2023 Note [facility] Cardiology Clinic Note Chief Complaint: Patient here [...] time Follow-up with Dr. David in the [facility] in 2 months Follow-up with Dr. Clover Regan his primary care physician in [place] PROCEDURES: Ultrasound-guided access to the left radial [...] should problems arise Tracey David MD, MPH, FACC, FSCAI, [facility] Interventional Cardiology Pager Email: [email or web address] Progress note 07-03-2023 Note Date & Type [...] time Follow-up with Dr. David in the [facility] in 2 months Follow-up with Dr. Clover Regan his primary care physician in [place] PROCEDURES: Ultrasound-guided access to the left radial [...] left radial artery was obtained. A 6 [place] glide sheath was inserted without difficulty. Bilateral [...] low normal ejection fraction, abnormal stress test [facility] Progress note 05-26-2023 Note Date & Type Note Facility 05-26-2023 Note [facility] Cardiology Clinic Note Chief Complaint: [...] Normal sinus at a rate of 67. [place]: Normal T-waves: Inverted in aVL ST-segments: Normal [...] D.O. 05/14/23 1541 Signed By: 05/14/23 1547 Assessment: Hypertension Dyspnea on exertion Recent bronchitis [...] the above Ehab Karina David MD, MPH, [facility], [facility], [facility] Interventional Cardiology Pager E (more content not included)... [facility] Evaluation note Note Date & Type Note Facility Evaluation note No assessment information availa [facility] Work Phone: Summary Purpose Family History No Family History Records FoundNo Family History Records Found Advance Directives No Advanced Directives Records FoundNo Advanced Directives Records Found Additional Source Comments (unrecognized sect ion and content) No Status Records FoundNo Status Records Found INFORMATION SOURCE (unrecogn ized section and content) DATE CREATED AUTHOR 11/10/2020 [facility] DATE CREATED AUTHOR AUTHOR'S ORGANIZ ATION 02/20/2024 [facility] Care Teams (unrecognized sec tion and content) Team Status: Inactive Member Role Status Dates Gary Beltrán MD Attending Provider Active Start: February 25, 2024 End: February 25, 2024 Goals (unrecognized section and content) Goals may be documented in a n alternate section FOR RECORDS PERTAINING TO PATIENTS WHO ARE [...] BE BASED ON THE PRIMARY CLINICAL RECORDS. [employer] provides no warranty or guarantee of the accuracy or completeness of information in this document.
[2024-02-27 08:56] LABS: Anion Gap 13.9; BUN Creatinine Ratio 7.5; Calcium 9.4 mg/dL (8.5-10.1); Carbon Dioxide 27.8 mmol/L (21.0-32.0); Chloride 101 mmol/L (98-107); Estimated GFR (African America >60 (>=60 mL/min/1.73m^2); Estimated GFR (Non-African Ame >60 (>=60 mL/min/1.73m^2); Glucose 109 mg/dL (74-106); Potassium 4.7 mmol/L (3.5-5.1); Sodium 138 mmol/L (136-145)
== END 2024-02-27 08:10 | disposition home or self-care (01) ==
LOC: LAB 08:10
PROVIDERS: PCP Family Medicine; Visit Provider Internal Medicine Interventional Cardiology
DX: I50.22 Chronic systolic (congestive) heart failure (principal)
CPT/HCPCS: 36415; 80048

== ENCOUNTER 2024-08-09 08:15 | Outpatient (OUT) | payer OTHER, SELFPAY ==
[2024-08-09 08:44] LABS: Basophils Absolute Auto 0.1 10^3/uL (0.0-0.1); Basophils Percent Auto 0.5 % (0.2-2.0); Eosinophils Absolute Auto 0.1 10^3/uL (0.0-0.7); Eosinophils Percent Auto 0.9 % (0.9-7.0); Hemoglobin 15.2 g/dL (14.0-18.0); Immature Granulocytes Abs Auto 0.04 10^3/uL (0.00-0.03); Immature Granulocytes Pct Auto 0.4 % (0.0-0.5); Lymphocytes Absolute Auto 1.7 10^3/uL (1.2-3.8); Lymphocytes Percent Auto 16.2 % (20.5-60.0); Mean Corpuscular Hemoglobin 29.5 pg (25.9-34.0); Mean Corpuscular Volume 89.1 fL (80.0-94.0); Mean Platelet Volume 9.5 fL (9.5-13.5); Monocytes Absolute Auto 0.9 10^3/uL (0.3-0.8); Monocytes Percent Auto 8.7 % (1.7-12.0); Neutrophils Absolute Auto 7.7 10^3/uL (1.4-6.5); Neutrophils Percent Auto 73.3 % (43.0-75.0); Platelet Count 257 10^3/uL (150-450); Red Blood Count 5.16 10^6/uL (4.70-6.10); White Blood Count 10.6 10^3/uL (4.0-11.0)
[2024-08-09 09:00] LABS: Estimated Average Glucose 128 mg/dL; Glycohemoglobin A1C 6.1 % (4.5-6.2)
[2024-08-09 09:17] LABS: Alanine Aminotransferase 83 U/L (16-63); Albumin Globulin Ratio 1.1; Albumin Level 3.8 g/dL (3.4-5.0); Alkaline Phosphatase 94 U/L (46-116); Anion Gap 12.1; Aspartate Amino Transferase 48 U/L (15-37); BUN Creatinine Ratio 6.5; Bilirubin Total 0.5 mg/dL (0.2-1.0); Calcium 9.3 mg/dL (8.5-10.1); Carbon Dioxide 29.3 mmol/L (21.0-32.0); Chloride 101 mmol/L (98-107); Chol HDL Ratio 2.9; Cholesterol 218 mg/dL (<=200); Estimated GFR (African America >60 (>=60 mL/min/1.73m^2); Estimated GFR (Non-African Ame >60 (>=60 mL/min/1.73m^2); Free T3 3.22 pg/mL (2.18-3.98); Globulin 3.6 g/dL; Glucose 103 mg/dL (74-106); HDL Cholesterol 76 mg/dL (40-60); Potassium 4.4 mmol/L (3.5-5.1); Sodium 138 mmol/L (136-145); Thyroid Stimulating Hormone 6.846 uIU/mL (0.358-3.740); Total Protein 7.4 g/dL (6.4-8.2); Triglycerides 181 mg/dL (<=150); VLDL CHOLESTEROL 36.2 mg/dL
[2024-08-09 10:27] LABS: Prostate Specific Antigen Scrn 1.71 ng/mL (<=4.00)
== END 2024-08-09 08:16 | disposition home or self-care (01) ==
LOC: LAB 08:17
PROVIDERS: PCP Family Medicine; Visit Provider Family Medicine
DX: R06.00 Dyspnea, unspecified (principal); R94.31 Abnormal electrocardiogram [ECG] [EKG]; E78.00 Pure hypercholesterolemia, unspecified; E03.9 Hypothyroidism, unspecified; Z12.5 Encounter for screening for malignant neoplasm of prostate
CPT/HCPCS: 36415; 80053; 80061; 83036; 84436; 84443; 84481; 85025; G0103

== ENCOUNTER 2024-08-10 12:32 | Outpatient (REF) | payer OTHER, SELFPAY ==
[2024-08-10 13:57] LABS: Internal Control Within Normal Limits; Occult Blood Negative
== END 2024-08-10 12:33 | disposition home or self-care (01) ==
LOC: LAB 12:32
PROVIDERS: PCP Family Medicine; Visit Provider Family Medicine
DX: R06.00 Dyspnea, unspecified (principal); R94.31 Abnormal electrocardiogram [ECG] [EKG]; E78.00 Pure hypercholesterolemia, unspecified; E03.9 Hypothyroidism, unspecified
CPT/HCPCS: G0328

== ENCOUNTER 2024-09-06 07:34 | Outpatient (OUT) | payer OTHER, SELFPAY ==
--- OUTSIDE RECORDS SUMMARY | 2024-06-10 09:21 | XMS_ITS ---
Author Organization The [facility] in [place] Address [address] [place] [address] Care Team Providers Care Laboratory Mechanical Technician Name Role Phone Elbert Regan Primary Care Provider Zay Brooks Unavailable [phone] REASON FOR VISIT Trelegy Medications Medication SIG (Take, Route, Frequency, Duration) Notes Start Date End Date Status Trelegy Ellipta 100-62.5-25 MCG/ACT 1 puff Inhalation Once a day for 90 days Rinse after use 06/15/2024 Active Encounters Encounter Location Date Provider Diagnosis [facility] [address] [place] [address] 06/10/2024 Zay Brooks Moderate persistent asthma, uncomplicated J45.40 Assessments Encounter Date Diagnosis (ICD Code) Assessment Notes Treatment Notes Treatment Clinical Notes Section Notes 06/10/2024 Moderate persistent asthma, uncomplicated (ICD-10 - J45.40) Plan Of Treatment Medication Medication Name Sig Start Date Stop Date Notes Breo Ellipta 100-25 MCG/ACT 1 puff Inhalation Once a day Trelegy Ellipta 100-62.5-25 MCG/ACT 1 puff Inhalation Once a day for 90 days 06/15/2024 Next Appt Details Provider Name:Zay Brooks, 11/16/2024 08:00:00 AM, [address] [place], [address], Progress Notes * Caesar SAMUEL SDOB: [birth year] (64 yo M)Acc No.[id number]:06/10/2024 Patient: Caesar CARRILLO :1960 A ge:64 Y S ex:Male Address:[facility] [place] [address] * Refills Stop Breo Ellipta Aerosol Powder Breath Activated, 100-25 MCG/ACT, Inhalation, 1 puff, Once a day Start Trelegy Ellipta Aerosol Powder Breath Activated, 100-62.5-25 MCG/ACT, Inhalation, 3 each, 1 puff, Once a day, 90 days, Refills=4 Subjective: * Chief Complaints: * T relegy * Medical History: * Surgical History: * Hospitalization/Major Diagno stic Procedure: * Medications: Objective: * Vitals: * Physical Examination: Assessment: * Assessment: 1. M oderate persistent asthma, uncomplicated - J45.40 (Primary) Plan: * Treatment: * Procedure Codes: * true * Date: Generated for Wilder rueda/Jennifer/eTaureliosmitting on: 0 09/06/2024 07:35 AM EDT
--- OUTSIDE RECORDS SUMMARY | 2024-08-05 04:00 | XMS_ITS ---
Author Organization The [facility] [place] Address [address] [place] [address] Care Team Providers Care Stave Block Splitter Name Role Phone Elbert Regan Primary Care Provider Results Component Value Reference Range Notes GLYCOHEMOGLOBIN A1C Reviewed date:08/09/2024 03:04:52 PM Interpretation: Performing Lab: Notes/Report: The [facility] , Glycohemoglobin A1C 6.1 4.5-6.2 % ADA RECOMMENDED LIMIT 4.0 - 6.0 ADA THERAPEUTIC TARGET < 7.0 ACTION SUGGESTED > 7.0 Estimated Average Glucose 128 Performing Lab: see note ML - [facility] REASON FOR VISIT yearly labs Encounters Encounter Location Date Provider Diagnosis [facility] [address] [place] [address] 08/05/2024 Elbert Regan Dyspnea R06.00 ; Abn ormal ECG during exercise stress test R94.31 ; Hypercholesterolemia E78.00 and Hypothyroid E03.9 Assessments Encounter Date Diagnosis (ICD Code) Assessment Notes Treatment Notes Treatment Clinical Notes Section Notes 08/05/2024 Dyspnea (ICD-10 - R06.00) 08/05/2024 Abnormal ECG during exercise stress test (ICD-10 - R94.31) 08/05/2024 Hypercholesterolemia (ICD-10 - E78.00) 08/05/2024 Hypothyroid (ICD-10 - E03.9) Plan Of Treatment Pending Test Test Name Order Date COMPREHENSIVE METABOLIC PROFILE WITH GFR 08/05/2024 OCCULT BLOOD, FECAL, IMMUNOASSAY 025 CBC W/AUTO DIFF 08/05/2024 THYROID PANEL (T4/TSH/FREE T3) PSA, SCREENING 08/05/2024 Lipid Panel 08/05/2024 Next Appt Details Provider Name:Zay Brooks, 11/16/2024 08:00:00 AM, [address] [place], [address], Progress Notes * Caesar SAMUEL SDOB: [birth year] (64 yo M)Acc No.[id number]:08/05/2024 Patient: Caesar CARRILLO :1960 A ge:64 Y S ex:Male Address:[facility] [place] [address] Subjective: * Chief Complaints: * Y early labs * Medical History: * Surgical History: * Hospitalization/Major Diagno stic Procedure: * Medications: Objective: * Vitals: * Physical Examination: Assessment: * Assessment: 1. D yspnea - R06.00 (Primary) 2 . A bnormal ECG during exercise stress test - R94.31 3 . H ypercholesterolemia - E78.00 4 . H ypothyroid - E03.9 Plan: * Treatment: 2. A bnormal ECG during exercise stress test L AB: COMPREHENSIVE METABOLIC PROFILE WITH GFR L AB: OCCULT BLOOD, FECAL, IMMUNOASSAY L AB: CBC W/AUTO DIFF L AB: GLYCOHEMOGLOBIN A1C L AB: THYROID PANEL (T4/TSH/FREE T3) L AB: PSA, SCREENING L AB: Lipid Panel 3. H ypercholesterolemia L AB: COMPREHENSIVE METABOLIC PROFILE WITH GFR L AB: OCCULT BLOOD, FECAL, IMMUNOASSAY L AB: CBC W/AUTO DIFF L AB: GLYCOHEMOGLOBIN A1C L AB: THYROID PANEL (T4/TSH/FREE T3) L AB: PSA, SCREENING L AB: Lipid Panel 4. H ypothyroid L AB: COMPREHENSIVE METABOLIC PROFILE WITH GFR L AB: OCCULT BLOOD, FECAL, IMMUNOASSAY L AB: CBC W/AUTO DIFF L AB: GLYCOHEMOGLOBIN A1C L AB: THYROID PANEL (T4/TSH/FREE T3) L AB: PSA, SCREENING L AB: Lipid Panel * Procedure Codes: * true * Date: Generated for Printi ng/Faxing/eTransmitting on: 0 09/06/2024 07:36 AM EDT
--- OUTSIDE RECORDS SUMMARY | 2024-08-09 11:03 | XMS_ITS ---
Author Organization The [facility] in [place] Address [address] [place] [address] Care Team Providers Care Ground [employer] Instructor Name Role Phone Elbert Regan Primary Care Provider [phone] REASON FOR VISIT review labs Medications Medication SIG (Take, Route, Frequency, Duration) Notes Start Date End Date Status Levothyroxine Sodium 100 MCG 1 capsule i n the morning on an empty stomach Orally Once a day for 90 days Active Encounters Encounter Location Date Provider Diagnosis [facility] [address] [place] [address] 08/09/2024 Elbert Regan Abnormal liver enzym es R74.8 and Hypothyroid E03.9 Assessments Encounter Date Diagnosis (ICD Code) Assessment Notes Treatment Notes Treatment Clinical Notes Section Notes 08/09/2024 Abnormal liver enzymes (ICD-10 - R74.8) 08/09/2024 Hypothyroid (ICD-10 - E03.9) Plan Of Treatment Medication Medication Name Sig Start Date Stop Date Notes Levothyroxine Sodium 100 MCG 1 capsule i n the morning on an empty stomach Orally Once a day for 90 days Pending Test Test Name Order Date CMP - Comprehensive Metabolic Panel 08/2024 HEPATITIS PANEL, ACUTE 08/09/2024 THYROID PANEL (T4/TSH/FREE T3) Next Appt Details Provider Name:Zay Brooks, 11/16/2024 08:00:00 AM, [address] [place], [address], Progress Notes * Caesar SAMUEL SDOB: [birth year] (64 yo M)Acc No.[id number]:08/09/2024 Patient: Caesar CARRILLO :1960 A ge:64 Y S ex:Male Address:[facility] [address] * Refills Refill Levothyroxine Sodium Capsule, 100 MCG, Orally, 90 Capsule, 1 capsule in the morning on an empty stomach, Once a day, 90 days, Refills=3 Subjective: * Chief Complaints: * R eview labs * Medical History: * Surgical History: * Hospitalization/Major Diagno stic Procedure: * Medications: Objective: * Vitals: * Physical Examination: Assessment: * Assessment: 1. A bnormal liver enzymes - R74.8 (Primary) 2 . H ypothyroid - E03.9 ? Plan: * Treatment: 2. H ypothyroid L AB: THYROID PANEL (T4/TSH/FREE T3) 3. O thers Refill Levothyroxine Sodium Capsule, 100 MCG, 1 capsule in the morning on an empty stomach, Orally, Once a day, 90 days, 90 Capsule, Refills 3. * Procedure Codes: * true * Date: Generated for Wilder rueda/Jennifer/Tishsmitting on: 0 09/06/2024 07:36 AM EDT
--- OUTSIDE RECORDS SUMMARY | 2024-09-06 07:36 | XMS_ITS | Patient Health Record ---
Author Organization The [facility] in [place] Address [address] [place] [address] Care Team Providers Care Die Presser Name Role Phone Elbret Regan Primary Care Provider Zay Brooks Unavailable [phone] Allergies No Known Allergies Results Component Value Reference Range Notes TSH Reviewed date:08/09/2024 03:04:52 PM Interpretation: Performing Lab: Notes/Report: [facility] , Thyroid Stimulating Hormone 6.846 0.358-3.740 uIU/mL Performing Lab: see note ML - [facility] LB T4 Reviewed date:08/09/2024 03:04:52 PM Interpretation: Performing Lab: Notes/Report: [facility] , T4 Thyroxine 7.30 4.50-12.10 ug/dL Performing Lab: see note ML - [facility] LB PROF 14(COMP METB) Reviewed date:08/09/2024 03:04:52 PM Interpretation: Performing Lab: Notes/Report: [facility] , Sodium 138 136-145 mmol/L Potassium 4.4 3.5-5.1 mmol/L Chloride 101 98-107 mmol/L Carbon Dioxide 29.3 21.0-32.0 mmol/L Anion Gap 12.1 Glucose 103 74-106 mg/dL Blood Urea Nitrogen 6.0 7.0-18.0 mg/dL Creatinine 0.92 0.70-1.30 mg/dL Estimated GFR ( Joanna >60 >=60 mL/min/1.73m 2 Estimated GFR (Non- Katie >60 >=60 mL/min/1.73m 2 BUN Creatinine Ratio 6.5 Calcium 9.3 8.5-10.1 mg/dL Bilirubin Total 0.5 0.2-1.0 mg/dL Aspartate Amino Transferase 48 15-37 U/L Alanine Aminotransferase 83 16-63 U/L Alkaline Phosphatase 94 46-116 U/L Total Protein 7.4 6.4-8.2 g/dL Albumin Level 3.8 3.4-5.0 g/dL Globulin 3.6 Albumin Globulin Ratio 1.1 Performing Lab: see note ML - [place] [facility] LIPID PROFILE Reviewed date:08/09/2024 03:04:52 PM Interpretation: Performing Lab: Notes/Report: [facility] , Triglycerides 181 <=150 mg/dL Cholesterol 218 <=200 mg/dL HDL Cholesterol 76 40-60 mg/dL > or =60 mg/dl - LOW CARDIOVASCULAR RISK <40 mg/dl - HIGH CARDIOVASCULAR RISK LDL Cholesterol Calculated 106.0 <100 mg/dl OPTIMAL 100-129 mg/dl NEAR OR ABOVE OPTIMAL 130-159 mg/dl BORDERLINE HIGH 160-189 mg/dl HIGH >190 mg/dl VERY HIGH VLDL CHOLESTEROL 36.2 Chol HDL Ratio 2.9 3.3 - 4.4 LOW RISK 4.4 - 7.1 AVERAGE RISK 7.1 - 11.0 MODERATE RISK >11.0 HIGH RISK Performing Lab: see note ML - [place] [facility] FREE T3 Reviewed date:08/09/2024 03:04:52 PM Interpretation: Performing Lab: Notes/Report: [facility] , Free T3 3.22 2.18-3.98 pg/mL Performing Lab: see note ML - [place] [facility] CBC AUTO DIFF Reviewed date:08/09/2024 03:04:52 PM Interpretation: Performing Lab: Notes/Report: [facility] , White Blood Count 10.6 4.0-11.0 10 3/uL Red Blood Count 5.16 4.70-6.10 10 6/uL Hemoglobin 15.2 14.0-18.0 g/dL Hematocrit 46.0 42.0-54.0 % Mean Corpuscular Volume 89.1 80.0-94.0 fL Mean Corpuscular Hemoglobin 29.5 25.9-34.0 pg Mean Corpuscular HGB Conc 33.0 29.9-35.2 g/dL Red Cell Distribution Width 14.0 11.0-15.0 % Platelet Count 257 150-450 10 3/uL Mean Platelet Volume 9.5 9.5-13.5 fL Neutrophils Percent Auto 73.3 43.0-75.0 % Lymphocytes Percent Auto 16.2 20.5-60.0 % Monocytes Percent Auto 8.7 1.7-12.0 % Eosinophils Percent Auto 0.9 0.9-7.0 % Basophils Percent Auto 0.5 0.2-2.0 % Immature Granulocytes Pct Auto 0.4 0.0-0.5 % Neutrophils Absolute Auto 7.7 1.4-6.5 10 3/uL Lymphocytes Absolute Auto 1.7 1.2-3.8 10 3/uL Monocytes Absolute Auto 0.9 0.3-0.8 10 3/uL Eosinophils Absolute Auto 0.1 0.0-0.7 10 3/uL Basophils Absolute Auto 0.1 0.0-0.1 10 3/uL Immature Granulocytes Abs Auto 0.04 0.00-0.03 10 3/uL Performing Lab: see note ML - [facility] PROF CHEM 8 (BAS METB) Reviewed date:02/28/2024 10:17:30 AM Interpretation: Performing Lab: Notes/Report: [facility] , Sodium 138 136-145 mmol/L Potassium 4.7 3.5-5.1 mmol/L Chloride 101 98-107 mmol/L Carbon Dioxide 27.8 21.0-32.0 mmol/L Anion Gap 13.9 Glucose 109 74-106 mg/dL Blood Urea Nitrogen 8.0 7.0-18.0 mg/dL Creatinine 1.07 0.70-1.30 mg/dL Estimated GFR ( Joanna >60 >=60 mL/min/1.73m 2 Estimated GFR (Non- Katie >60 >=60 mL/min/1.73m 2 BUN Creatinine Ratio 7.5 Calcium 9.4 8.5-10.1 mg/dL Performing Lab: see note - [facility] CA echo doppler complete Reviewed date:10/06/2023 09:12:03 PM Interpretation: Performing Lab: Notes/Report: Source Facility: [facility] [place] [address] [facility] [place] [id number] Cardiology Report Signed Patient: LISSY SAMUEL MR#: [id number] : 1960 Acct:[id number] Age/Sex: 63 / M ADM Date: 10/03/23 Loc: CARD Attending Dr: Tracey Mayers M.D. Ordering Physician: Tracey Mayers M.D. Date of Service: 10/03/23 Procedure(s): CA echo doppler complete Accession Number(s): [id number] cc: Tracey Mayers M.D.; Morgan Regan M.D. Patient Name: LISSY SAMUEL MR#: [id number] : 1960 Exam Date: 10/03/2023 Ordering Doctor: DR TRACEY MAYERS M.D. ECHOCARDIOGRAM REPORT PROCEDURE: CA ECHO DOPPLER COMPLETE INDICATIONS: Dyspnea on exertion COMPARISON: None. DESCRIPTION: COMPLETE ECHOCARDIOGRAM Real-time transthoracic echocardiography with 2D, M-mode, spectral and color flow Doppler performed. QUALITY: Technical quality was good. LEFT VENTRICLE: Normal chamber size. Normal left ventricular wall thickness. Systolic functionis at the lower limits of normal. LV EF: Low normal left ventricular ejection fraction, (50-55%). DIASTOLIC: Normal diastolic function. ATRIAL SEPTUM: Visually appears intact. LEFT ATRIUM: Normal chamber size. RIGHT ATRIUM: Normal chamber size. RIGHT VENTRICLE: Normal chamber size. Normal right ventricular systolic function. TRICUSPID VALVE: Normal mobility and thickness. No stenosis with mild regurgitation. No evidence of pulmonary hypertension. RVSP 31 mmHg MITRAL VALVE: Normal mobility and thickness. No evidence of mitral valve stenosis. There is no mitral annular calcification. Trivial mitral regurgitation. AORTIC VALVE: Normal trileaflet appearance. No visible sclerosis. Normal leaflet mobility. No evidence of aortic valve stenosis. No aortic regurgitation. AORTIC ROOT: Normal diameter and appearance. PULMONIC VALVE: Normal thickness and mobility. No stenosis. No regurgitation. PERICARDIUM: No evidence of pericardial effusion. IVC: Collapses with inspirations. IVC is normal in size. PLEURA: CONCLUSION: 1. Normal left ventricular size with low normal systolic function. LVEF is estimated at 50-55%. 2. Normal right ventricular size and systolic function. 3. Normal diastolic function. 4. No significant valvular dysfunction. 5. Normal right sided pressures. Adult Echocardiography Procedure Report Left Ventricle LVEDD (3.7 - 5.6 cm): 5.36 cm LVESD (2.2 - 4.0 cm): 4.72 cm LVIVS thickness (0.6 - 1.2 cm): 0.84 cm LVPW thickness (0.5 - 1.0 cm): 0.84 cm e': 0.10 m/s E - e': 6.37 LVOT Max Gradient: 1.87 mm[Hg] LVOT Area (cm2): 0.68 m/s Peak Velocity (LVOT): 0.68 m/s Mean Velocity (LVOT): 0.46 m/s LVOT Diameter 2.03 cm Left Atrium LA Volume Index (2D A2C): 25.84 ml/m2 Left Atrium Systolic Dimension: 3.72 cm Mitral Valve MV E to A Ratio: 0.97 Mitral Valve A-Wave Peak Velocity: 0.67 m/s Mitral Valve E-Wave Peak Velocity: 0.65 m/s Right Ventricle Aorta AO Root Diam: 2.55 cm Aortic Valve AoV Area (Peak Florentin): 2.72 cm2, 2.72 cm2 AoV Area (VTI): 2.83 cm2, 2.83 cm2 Peak Velocity(Antegrade Flow): 0.82 m/s Peak Gradient(Antegrade Flow): 2.66 mm[Hg] Mean Velocity(Antegrade Flow): 0.55 m/s Mean Gradient(Antegrade Flow): 1.37 mm[Hg] Velocity Time Integral: 21.32 cm Tricuspid Valve Peak Velocity (Regurgitant Flow): 2.62 m/s Pulmonic Valve Peak Gradient: 2.02 mm[Hg], 2.02 mm[Hg] Right Atrium Right Atrium Systolic Pressure: 33.84 ml, 33.84 ml Dictated by: Devyn Coughlin M.D. on 10/03/2023 at 21:11 Approved by: Devyn Coughlin M.D. on 10/03/2023 at 21:15 Dictated By: DEVYN COUGHLIN Signed By: 10/03/232115 DD/ 14 TD/TT: Tooling Specialist: [place] [address] Cardiology Report Signed Patient: CIARAN SAMUEL MR#: [id number] : 1960 Acct:[id number] Age/Sex: 63 / M ADM Date: 10/03/23 Loc: CARD Attending Dr: Tracey Mayers M.D. Ordering Physician: Tracey Mayers M.D. Date of Service: 10/03/23 Procedure(s): CA ech o doppler complete Accession Number(s): [id number] cc: Tracey Mayers; Morgan Regan M.D. Patient Name: LISSY SAMUEL MR#: [id number] : 1960 Exam Date: 10/03/2023 Ordering Doctor: DR TRACEY MAYERS M.D. ECHOCARDIOGRAM REPORT PROCEDURE: CA ECHO DOPPLER COMPLETE INDICATIONS: Dyspnea on exertion COMPARISON: None. DESCRIPTION: COMPLET E ECHOCARDIOGRAM Real-time transthoracic echocardiography wit h 2D, M-mode, spectral and color flow Doppler performed. QUALITY: Technical quality was good. LEFT VENTRICLE: Norm al chamber size. Normal left ventricular wall thickness. Systolic functionis at the lower limits of normal. LV EF: Low normal le ft ventricular ejection fraction, (50-55%). DIASTOLIC: Normal diastolic function. ATRIAL SEPTUM: Visua lly appears intact. LEFT ATRIUM: Normal chamber size. RIGHT ATRIUM: Normal chamber size. RIGHT VENTRICLE: Nor mal chamber size. Normal right ventricular systolic function. TRICUSPID VALVE: Nor mal mobility and thickness. No stenosis with mild regurgitation. No evidence of pulmonary hypertension. RVSP 31 mmHg MITRAL VALVE: Normal mobility and thickness. No evidence of mitral valve stenosis. There is n o mitral annular calcification. Trivial mitral regurgitation. AORTIC VALVE: Normal trileaflet appearance. No visible sclerosis. Normal leaflet mobility. No evidence of aortic valve stenosis. No aortic regurgitation. AORTIC ROOT: Normal diameter and appearance. PULMONIC VALVE: Norm al thickness and mobility. No stenosis. No regurgitation. PERICARDIUM: No evid ence of pericardial effusion. IVC: Collapses with inspirations. IVC is normal in size. PLEURA: CONCLUSION: 1. Normal left ventricular size with low normal systolic function. LVEF is estimated at 50-55%. 2. Normal right ventricular size and systolic function. 3. Normal diastolic function. 4. No significant valvular dysfunction. 5. Normal right side d pressures. Adult Echocardiograp hy Procedure Report Left Ventricle LVEDD (3.7 - 5.6 cm) : 5.36 cm LVESD (2.2 - 4.0 cm) : 4.72 cm LVIVS thickness (0.6 - 1.2 cm): 0.84 cm LVPW thickness (0.5 - 1.0 cm): 0.84 cm e': 0.10 m/s E - e': 6.37 LVOT Max Gradient: 1 .87 mm[Hg] LVOT Area (cm2): 0.6 8 m/s Peak Velocity (LVOT) : 0.68 m/s Mean Velocity (LVOT) : 0.46 m/s LVOT Diameter 2.03 cm Left Atrium LA Volume Index (2D A2C): 25.84 ml/m2 Left Atrium Systolic Dimension: 3.72 cm Mitral Valve MV E to A Ratio: 0.97 Mitral Valve A-Wave Peak Velocity: 0.67 m/s Mitral Valve E-Wave Peak Velocity: 0.65 m/s Right Ventricle Aorta AO Root Diam: 2.55 cm Aortic Valve AoV Area (Peak Florentin): 2.72 cm2, 2.72 cm2 AoV Area (VTI): 2.83 cm2, 2.83 cm2 Peak Velocity(Antegr shabnam Flow): 0.82 m/s Peak Gradient(Antegr shabnam Flow): 2.66 mm[Hg] Mean Velocity(Antegr shabnam Flow): 0.55 m/s Mean Gradient(Antegr shabnam Flow): 1.37 mm[Hg] Velocity Time Integr al: 21.32 cm Tricuspid Valve Peak Velocity (Regurgitant Flow): 2.62 m/s Pulmonic Valve Peak Gradient: 2.02 mm[Hg], 2.02 mm[Hg] Right Atrium Right Atrium Systoli c Pressure: 33.84 ml, 33.84 ml Dictated by: Devyn Coughlin M.D. on 10/03/2023 at 21:11 Approved by: Devyn Coughlin M.D. on 10/03/2023 at 21:15 Dictated By: DEVYN COUGHLIN Signed By: 10/03/232115 DD/ 14 TD/TT: Tooling Specialist: GLYCOHEMOGLOBIN A1C Reviewed date:08/09/2024 03:04:52 PM Interpretation: Performing Lab: Notes/Report: [facility] , Glycohemoglobin A1C 6.1 4.5-6.2 % ADA RECOMMENDED LIMIT 4.0 - 6.0 ADA THERAPEUTIC TARGET < 7.0 ACTION SUGGESTED > 7.0 Estimated Average Glucose 128 Performing Lab: see note - [place] [facility] Occult Blood* Reviewed date:08/10/2024 02:56:55 PM Interpretation: Performing Lab: Notes/Report: [facility] , Occult Blood Negative Performing Lab: see note - [place] [facility] PSA SCREENING Reviewed date:08/09/2024 03:04:52 PM Interpretation: Performing Lab: Notes/Report: [facility] , Prostate Specific Antigen Scrn 1.71 <=4.00 ng/mL Performing Lab: see note - [facility] Reason For Referral No Information Medications Medication SIG (Take, Route, Frequency, Duration) Notes Start Date End Date Status Albuterol Sulfate HFA 108 (90 Base) MCG/ACT 2 puffs as needed for SOB Inhalation Q4H for 30 days Active Trelegy Ellipta 100-62.5-25 MCG/ACT 1 puff Inhalation Once a day for 90 days Rinse after use 06/15/2024 Active Lisinopril 10 MG take 1 tablet by vikki th every morning Oral for 30 Days Active Simvastatin 20 MG take 1 tablet by vikki th every evening for 30 Active Liothyronine Sodium 5 MCG TAKE 1 TABLET BY MOUTH DAILY for 90 Active Levothyroxine Sodium 100 MCG 1 tablet in the morning on an empty stomach Orally Once a day for 90 days Active Immunizations Vaccine Route Administration Date Status Comme nts Flu, Flucelvax (68937) 2 yrs +, single-dose syringe (9643-3289) Unknown 01/26/2018 Administered Social History Tobacco Use: Social History Observation Description Date Details (start date - stop date) Former Smoker NA - NA Tobacco Control (Standard) Question Answer Notes Tobacco use: Former smoker How long has it been since y ou last smoked? Greater than 10 years Additional Findings: Tobacco non-user Ex -moderate cigarette smoker (10-19/day) Problems Problem Type SNOMED Code ICD Code Onset Dates Problem Status W/U Status Risk Notes Problem Uncomplicated moderate persistent asthma (290373440) Moderate persistent asthma, uncomplicated (J45.40) Active confirmed Problem 168189273 MCC (curre nt) use of inhaled steroids (Z79.51) Active confirmed Problem Hypertension (95117889) Hypertension (I10) Active confirmed Problem Hypothyroid (36654263) Hypothyroid (E03.9) Active confirmed Problem Ex-tobacco user (finding) (753489797) History of tobacco abuse (Z87.891) Active confirmed Problem Hypercholesterolemia (33852715) Hypercholesterolemia (E78.00) Active confirmed Problem Calcified lymph node s (572429234) Calcified lymph nodes (I89.8) Active confirmed Vital Signs Heart Rate 71 /min 05/26/2024 Temperature 96.8 degrees Fahrenheit 05/26/2024 Respiratory Rate 18 /min 05/26/2024 Oximetry 92 % 05/26/2024 Blood pressure diastolic 81 mm Hg 05/26/2024 Height 73 in 05/26/2024 Blood pressure systolic 157 mm Hg 05/26/2024 Weight 208.4 lbs 05/26/2024 BMI 27.49 kg/m2 05/26/2024 Encounters Encounter Location Date Provider Diagnosis Pulmonary Medicine [address] [address] 11/25/2023 Zaymichelle Brooks Moderate persistent asthma, uncomplicated J45.40 ; History of tobacco abuse Z87.891 ; Calcified lymph nodes I89.8 ; MCC (current) use of inhaled steroids Z79.51 and Encounter for screening for malignant neoplasm of respiratory organs Z12.2 Pulmonary Medicine [address] [address] 05/26/2024 Zay Brooks Moderate persistent asthma, uncomplicated J45.40 ; History of tobacco abuse Z87.891 ; Calcified lymph nodes I89.8 and MCC (current) use of inhaled steroids Z79.51 Pulmonary Medicine [place] [address] [place] [address] 06/10/2024 Zaymichelle Brooks Moderate persistent asthma, uncomplicated J45.[address] [address] 08/05/2024 Elbert Hoy Dyspnea R06.00 ; Abn ormal ECG during exercise stress test R94.31 ; Hypercholesterolemia E78.00 and Hypothyroid E03.[address] [address] 08/09/2024 Elbert Regan Abnormal liver enzym es R74.8 and Hypothyroid E03.9 Assessments Encounter Date Diagnosis (ICD Code) Assessment Notes Treatment Notes Treatment Clinical Notes Section Notes 11/25/2023 Moderate persistent asthma, uncomplicated (ICD-10 - J45.40) Patient states his breathing is doing about the same as last visit. However, last visit he stated he felt only 60-70% of what he perceived his baseline should be. Addressed that as he feels the same, does he need any further escalation of therapy, such as increasing the Breo dose to 200, or adding a LAMA such as Spiriva. He voiced he is doing okay at the moment, and he does not feel he needs any additional therapy. Discussed pulmonary rehabilitation. With a FEV1 of 37%, he qualifies for phase 2. Patient states he is considering it. I provided him with a pamphlet. Will have patient return in 6 months, which will be the end of winter, early spring. He was advised to contact us sooner if symptoms worsen and/or he decides to escalate therapy. 06/10/2024 Moderate persistent asthma, uncomplicated (ICD-10 - J45.40) 08/05/2024 Dyspnea (ICD-10 - R06.00) 08/05/2024 Abnormal ECG during exercise stress test (ICD-10 - R94.31) 05/26/2024 Moderate persistent asthma, uncomplicated (ICD-10 - J45.40) Patient states his breathing is doing okay and unchanged, but on further questioning, I suspect his symptoms are not as well-controlled as he believes. I note on examination that he has new mild bilateral wheezes. I suggested increasing his regimen. The easiest solution would be changing Breo to Trelegy; it is used exact same way and as a LAMA. Counseled him on LAMA adverse effects including dry mouth, blurry vision, and impaired urination. Patient was tubing arriving to try it. I provided him with samples of Trelegy 100, reminded him that he would need to rinse after use. Will contact the office in several weeks and let us know if his breathing is improving. Will follow-up with him in 6 months, or sooner if needed. 05/26/2024 History of tobacco abuse (ICD-10 - Z87.891) 1ppd x 25 years, quit 2012. Last LDCT 08/25/2023 (RADS-2). LDCT due 08/2024. 08/09/2024 Abnormal liver enzym es (ICD-10 - R74.8) 08/09/2024 Hypothyroid (ICD-10 - E03.9) 05/26/2024 Calcified lymph node s (ICD-10 - I89.8) Consistent with old granulomatous disease: Calcified mediastinal and right hilar lymph nodes, along with small scattered calcified pulmonary nodules. 08/05/2024 Hypercholesterolemia (ICD-10 - E78.00) 11/25/2023 History of tobacco abuse (ICD-10 - Z87.891) 1ppd x 25 years, quit 2012. LDCT was done 08/25/2023 (RADS-2). No new findings compared to CTA chest 02/08/2020. Explained that he meets current LDCT eligibility through 2027. He voiced he would like to continue with the LDCT program. LDCT will be ordered for August 2024. 11/25/2023 Calcified lymph node s (ICD-10 - I89.8) Calcified mediastinal and right hilar lymph nodes, along with small scattered calcified pulmonary nodules. This is consistent with old granulomatous disease. Unchanged on LDCT 08/27/2023 compared to CTA chest 02/08/2020. 08/05/2024 Hypothyroid (ICD-10 - E03.9) 05/26/2024 MCC (current) use of inhaled steroids (ICD-10 - Z79.51) Patient was counseled to rinse & gargle with water after inhaled corticosteroid use. 11/25/2023 MCC (current) use of inhaled steroids (ICD-10 - Z79.51) Patient was counseled to rinse & gargle with water after inhaled corticosteroid use. 11/25/2023 Encounter for screen ing for malignant neoplasm of respiratory organs (ICD-10 - Z12.2) Low-dose CT (LDCT) was recommended for lung cancer screening. The patient meets criteria including age 50-77, a smoking history of at least 20 pack-years, is currently smoking or has ceased smoking within the past 15 years, and has no signs or symptoms of lung cancer. Shared decision making performed with the patient. After LDCT has been completed, will review report and/or imaging and provide appropriate recommendations for the patient, including additional follow up if needed. Patient was counseled on smoking cessation/continu ed tobacco abstinence. LDCT due 08/2024. Plan Of Treatment Pending Test Test Name Order Date Exercise Treadmill Stress Test (TMST) CMP (COMPLETE METABOLIC PANEL) 4 HEMOGLOBIN A1C (GLYCO) 05/08/2023 LIPID PANEL (CHOL/TRIG/HDL/LDL) 05/08/19 24 CBC WITH DIFF 05/08/2023 PSA, PROSTATE-SPECIFIC ANTIGEN 4 COMPREHENSIVE METABOLIC PROFILE WITH GFR 08/05/2024 OCCULT BLOOD, FECAL, IMMUNOASSAY 025 CMP - Comprehensive Metabolic Panel 08/2024 CBC W/AUTO DIFF 08/05/2024 STOOL OCCULT BLOOD 05/08/2023 HEPATITIS PANEL, ACUTE 08/09/2024 THYROID PANEL (T4/TSH/FREE T3) 5 THYROID PANEL (T4/TSH/FREE T3) 4 THYROID PANEL (T4/TSH/FREE T3) 4 THYROID PANEL (T4/TSH/FREE T3) 5 PSA, SCREENING 08/05/2024 Lipid Panel 05/12/2023 Lipid Panel 08/05/2024 Future Test Test Name Order Date CT Chest Low Dose for Screening* 025 Next Appt Details Provider Name:Zay Brooks, 11/16/2024 08:00:00 AM, [address] [place], [address], Insurance Providers Payer Name Payer Address Payer Phone Subscriber Number Group Number Insured Name Patient Relationship to Insured Coverage Start Date Coverage End Date [employer] [address] [place] [address] [id number] Lissy Samuel Self - patient is the insured Medical (General) History Medical History History ICD Code Aspiration pneumonia J69.0 Essential (primary) hypertension I10 Moderate persistent asthma, uncomplicate d J45.40 History of tobacco abuse Z87.891 Calcified lymph nodes I89.8 Surgical History Surgery Date(Month/Year) Coronary Angiography- Dr. Mayers
--- OUTSIDE RECORDS SUMMARY | 2024-09-06 07:36 | XMS_ITS | Clinical Summary ---
Author Organization [facility] Healthcare Address [address] [place] [address] Care Team Providers Care Darklight Inspector Name Role Phone Unavailable Primary Care Provider Unavailabl e Allergies No known active allergies Medications carvedilol (Coreg) 3.125 MG tablet Take 3.125 mg by mouth in the morning and 3.125 mg in the evening. Take with meals. Active Breo Ellipta 100-25 MCG/ACT aerosol powder 1 puff 1 (one) time each day at the same time 4 Active levothyroxine (Synthroid, Levoxyl) 75 MCG tablet take 1 tablet by mouth every morning ON AN EMPTY STOMACH for 30 4 Active liothyronine (Cytomel) 5 MCG tablet take 1 tablet by mouth once daily ON AN EMPTY STOMACH for 30 Active lisinopril 10 MG tablet take 1 tablet by mouth every morning Oral for 30 Days 4 Active simvastatin (Zocor) 20 MG tablet take 1 tablet by mouth every evening for 30 4 Active albuterol HFA 90 mcg/act inhaler 2 puffs as needed for SOB Inhalation Q4H for 30 days Active Active Problems No known active problems Social History Tobacco Use Types Packs/Day Years Used Date Smoking Tobacco: Former Cigarettes Smokeless Tobacco: Never Tobacco Cessation:Counseling Given: Not Answered Alcohol Use Standard Drinks/Week Comments Yes 0 (1 standard drink = 0.6 oz pur e alcohol) Sex and Gender Information Value Date Recorded Sex Assigned at Not on file Legal Sex Male 8:12 AM EDT Gender Identity Not on file Sexual Orientation Not on file Plan of Treatment Not on file Insurance [employer]
--- OUTSIDE RECORDS SUMMARY | 2024-09-06 07:36 | XMS_ITS | CCD ---
Author Organization [facility] CliniSyri Care Team Providers Care Airline Attendant Name Role Phone BRUCE, DR GALO Primary Care Unavailable TERI ELI Admitting Unavailable MILTON, DR AILYN Marlow Consulting Unavailable TERI ELI Attending Unavailable ZIEBLISBETH, DR ANTONIO Archibald Consulting Unavailable TERI ELI Consulting Unavailable BRUCE, DR GALO Admitting Unavailable HOY, DR GALO Attending Unavailable HOY, DR GALO Primary Care Unavailable HOY, DR GALO Consulting Unavailable BROWNY, DR GALO Admitting Unavailable HOY, DR GALO Attending Unavailable HOY, DR GALO Admitting Unavailable HOY, DR GALO Primary Care Unavailable HOY, DR GALO Attending Unavailable HOY, DR GALO Consulting Unavailable HOY, DR GALO Admitting Unavailable HOY, DR GALO Attending Unavailable HOY, DR GALO Consulting Unavailable BRUCE, DR GALO Primary Care Unavailable WEST, DR AILYN Marlow Consulting Unavailable BRUCE, DR GALO Admitting Unavailable HOY, DR GALO Attending Unavailable HOY, DR GALO Consulting Unavailable BROWNY, DR GALO Primary Care Unavailable HOY, DR GALO Admitting Unavailable HOY, DR GALO Attending Unavailable BROWNY, DR GALO Consulting Unavailable Gary Beltrán MD Attending Provider [phone] Gary Beltrán Admitting Unavailable Gary Beltrán Attending Unavailable Unavailable Primary Care Provider UnavailTRACEY West Attending Unavailable TRACEY DAVID Attending Unavailable TRACEY DAVID Attending Unavailable Medications Current Medications Medication Drug Class(es) Dates Sig (Normalized) Sig (Original) [id number] actuat albuterol 0.09 mg/actuat metered dose inhaler (2 sources) beta2-Adrenergic Agonist take 2 puff(s) by inhalation every four hours as needed albuterol HFA 90 mcg/act inhaler 2 puffs as needed for SOB Inhalation Q4H for 30 days Active carvedilol 3.125 mg oral tablet (2 sources) alpha-Adrenergic Lisa, beta-Adrenergic Lisa take 1 tablet by mouth in the morning carvedilol (Coreg) 3.125 MG tablet Take 3.125 mg by mouth in the morning and 3.125 mg in the evening. Take with meals. Active 30 actuat fluticasone furoate 0.1 mg/actuat / vilanterol 0.025 mg/actuat dry powder inhaler (2 sources) Corticosteroid, beta2-Adrenergic Agonist Start: 07-16-2023 Breo Ellipta 100-25 MCG/ACT aerosol powder 1 puff 1 (one) time each day at the same time 07/16/2023 Active levothyroxine sodium 0.075 mg oral tablet (2 sources) l-Thyroxine Start: 05-13-2023 take 1 tablet by mouth once daily in the morning levothyroxine (Synthroid, Levoxyl) 75 MCG tablet take 1 tablet by mouth every morning ON AN EMPTY STOMACH for 30 05/13/2023 Active liothyronine sodium 0.005 mg oral tablet (2 sources) l-Triiodothyronin e take 1 tablet by mouth once daily liothyronine (Cytomel) 5 MCG tablet take 1 tablet by mouth once daily ON AN EMPTY STOMACH for 30 Active lisinopril 10 mg oral tablet (2 sources) Angiotensin Converting Enzyme Inhibitor Start: 05-26-2023 take 1 tablet by mouth once daily in the morning lisinopril 10 MG tablet take 1 tablet by mouth every morning Oral for 30 Days 05/26/2023 Active simvastatin 20 mg oral tablet (2 sources) HMG-CoA Reductase Inhibitor Start: 05-13-2023 take 1 tablet by mouth once daily in the evening simvastatin (Zocor) 20 MG tablet take 1 tablet by mouth every evening for 30 05/13/2023 Active Problems Active Problems Problem Classification Problem Date Documented Da te Episodic/Chronic Chronic obstructive pulmonary disease and bronchiectasis (1 source) Bronchitis, not specified as acute or chronic; Translations: [BRONCHITIS NOT SPEC ACUTE/CHRON] Onset: 11-03-2020 Episodic Congestive heart failure; nonhypertensive (2 sources) Chronic systolic (congestive) heart failure; Translations: [Chronic systolic (congestive) heart failure] Onset: 08-18-2024 Chronic Essential hypertension (2 sources) Essential (primary) hypertension; Translations: [Essential (primary) hypertension] Onset: 08-18-2024 Chronic Neoplasms of unspecified nature or uncertain behavior (1 source) Neoplasm of unspecified behavior of bone, soft tissue, and skin; Translations: [Neoplasm of unspecified behavior of bone, soft tissue, and skin] Onset: 02-25-2024 Episodic Other lower respiratory disease (2 sources) Other forms of dyspnea; Translations: [Other forms of dyspnea] Onset: 09-02-2023 Episodic Unclassified (3 sources) CONTACT W/AND (SUSP) [...] [SHORTNESS OF BREATH] Onset: 02-03-2020 Episodic Other skin disorders (2 sources) Epidermoid cyst; Translations: [Epidermal cyst] 12-05-2023 Episodic Pneumonia (except that caused by tuberculosis or sexually transmitted disease) (1 source) Pneumonia, unspecified organism; Translations: [PNEUMONIA UNSPECIFIED ORGANISM] Onset: 02-10-2020 Episodic Unclassified (1 source) CONTACT W/AND (SUSP) EXPOS COVID-19; Translations: [CONTACT W/AND (SUSP) EXPOS COVID-19] Onset: 10-24-2020 Results Test Name Value Interpretation Reference Range Facil ity Office Visiton 08-18-2024 Follow-up visit [id number] Lissy Samuel 1960 M Date Provider Department Center 08/18/2024 Skip-TRACEY DAVID CARD Valente Eric Family History Problem Relation Age of Onset No Known Problems Mother No Known Problems Father Coronary artery disease Father's Brother Family Status - Relation Status Age at Mother Alive Father Alive Sister Alive Brother Alive Father's Brother Level of Service:06013 AR OFFICE/OUTPATIENT ESTABLISHED MOD MDM 30 MIN Normal [facility] Danny 02-25-2024 L Specimen: [id number] Received: 02/25/24 Status: RENNY Marcial Num: [id number] Spec Type: Surgical Subm Dr: Gary Beltrán MD Tissues: A Skin Cyst (FOREHEAD) Procedures: Tanya DUCKWORTH/Jesica L3 Age/ Patient Sex Location Account Attending Physician Lissy Samuel/M CIARAN [id number] Gary Beltrán MD SPEC NUM: [id number] RECD: 02/25/24 STATUS: RENNY MARCIAL NUM: [id number] HARLEEN: 02/25/[address]: Gary Beltrán MD ENTERED: 02/25/24 [facility] DR: SPEC TYPE: Surgical DEPT: S ENTERED BY: [id number] REC BY: [id number] ORDERED: HE, Gross/Micro L3 ORDERED: HE, Gross/Micro L3 Pathological Diagnosis Cyst, forehead, excision: Sebaceous cyst. Clinical Information Mass increasing in size, primary biopsy, D49.2 Neoplasm of unspecified behavior Gross Description Part A is received in formalin labeled with the patients name, date of , and forehead is a christy-maza, intact cystic structure, 1.2 x 1.1 x 0.8 cm, resected with a christy-maza, wrinkled ellipse of skin, 0.8 x 1.4 cm. The specimen is inked black and sectioned to reveal a smooth-lined cavitated area, 1 cm in greatest dimension, filled with a maza-christy, friable material. The specimen is entirely submitted in a single cassette. (1, ns, [id number]) CPT Codes 23661 Specimen: [id number] Received: 02/25/24 Status: RENNY Camejoeaston Num: [id number] Spec Type: Surgical Subm Dr: Gary Beltárn MD Tissues: A Skin Cyst (FOREHEAD) Procedures: GUCCI, Gross/Micro L3 Patient: Lissy Samuel [id number] (Continued) Signed (signature on file) Lebron Purcell MD 02/26/24 152 Normal [facility] Office Visiton 02-18-2024 Follow-up visit [id number] JimmieLissy 1960 M [facility] Provider Department Center 02/18/2024 TRACEY COLE Family History Problem Relation Age of Onset No Known Problems Mother No Known Problems Father Coronary artery disease Father's Brother Family Status - Relation Status Age at Mother Father Father's Brother Level of Service:84763 AR OFFICE/OUTPATIENT ESTABLISHED MOD MDM 30 MIN Normal [facility] Office Visiton 09-02-2023 Follow-up visit [id number] JimmieLissy prescott 1960 [facility] Provider Department Center 09/02/2023 TRACEY COLE Family History Problem Relation Age of Onset No Known Problems Mother No Known Problems Father Coronary artery disease Father's Brother Family Status - Relation Status Age at Mother Father Father's Brother Level of Service:83786 AR OFFICE/OUTPATIENT ESTABLISHED MOD MDM 30 MIN Normal [facility] Orders Onlyon 08-29-2023 Orders Only [id number] Lissy Samuel 1960 [facility] Provider Department Center 08/29/2023 [id number], HISTORICAL BH CARD [facility] Family History Problem Relation Age of Onset No Known Problems Mother No Known Problems Father Coronary artery disease Father's Brother Family Status - Relation Status Age at Mother Father Father's Brother Normal [facility] Covid-19 PCR (CVDTBH)on 10-06 SARS-CoV-2 (COVID-19) RNA FAIZAN+probe Ql (Unsp spec) Not detected Normal NOT DETECTED [facility] Comment on above: Result Comment: This test is not yet approved or cleared by the [place] FDA. When there are no FDA-approved or cleared tests available, and other criteria are met, FDA can make tests available under an emergency access mechanism called an Emergency Use Authorization (EUA). The EUA for this test is supported by the [place] of Health and Human Service's (HHS's) declaration [...] consistent with SARS-CoV-2. Performed By: #### B ASSOCIATE MERCHANDISER, CMP, TROP #### [facility] [address] [place] [address] Katarina Nielsen SYMPTOMATIC COVID-19 ANTIGEN on 10-24-2020 EUA Statement SEE BELOW Normal [facility] Comment on above: Result Comment: This [...] is revoked sooner. Performed By: #### B ASSOCIATE MERCHANDISER, CMP, TROP #### [facility] [address] [place] [address] Katarina Nielsen SARS-CoV-2 (COVID-19) RNA FAIZAN+probe Ql (Unsp spec) Negative Normal NEGATIVE [facility] Comment on above: Performed By: #### B ASSOCIATE MERCHANDISER, CMP, TROP #### [facility] [address] [place] [address] Katarinavictoria Nielsen BNPon 02-08-2020 Natriuretic peptide B (Bld) [Mass/Vol] 228.0 pg/mL Normal <=900.0 [facility] Comment on above: Performed By: #### B ASSOCIATE MERCHANDISER, CMP, TROP #### [facility] [address] [place] [address] Katarina Gia CBC AUTO DIFFon 02-08-2020 BASO # 0.1 103/ul Normal 0.0-0.1 [facility] Comment on above: Performed By: #### B ASSOCIATE MERCHANDISER, CMP, TROP #### [facility] [address] [place] [address] Katarina Gia Basophils/100 WBC (Bld) 0.7 % Normal 0.2-2.0 [facility] Comment on above: Performed By: #### B ASSOCIATE MERCHANDISER, CMP, TROP #### [facility] [address] [place] [address] Katarina Gia EO # 0.1 103/ul Normal 0.0-0.7 [facility] Comment on above: Performed By: #### B ASSOCIATE MERCHANDISER, CMP, TROP #### [facility] [address] [place] [address] Katarina Gia Eosinophils/100 WBC (Bld) 0.6 % Critically low 0.9-7.0 [facility] Comment on above: Performed By: #### B ASSOCIATE MERCHANDISER, CMP, TROP #### [facility] [address] [place], [place] [address] Katarina Gia Erythrocyte distribution width (RBC) [Ratio] 14.0 % Normal 11.0-15.0 [facility] Comment on above: Performed By: #### B ASSOCIATE MERCHANDISER, CMP, TROP #### [facility] [address] [place] [address] Katarina Gia Hematocrit (Bld) [Volume fraction] 45.7 % Normal 42.0-54.0 [facility] Comment on above: Performed By: #### B ASSOCIATE MERCHANDISER, CMP, TROP #### [facility] [address] [place] [address] Katarina Gia Hemoglobin (Bld) [Mass/Vol] 15.1 g/dL Normal 14.0-18.0 [facility] Comment on above: Performed By: #### B ASSOCIATE MERCHANDISER, CMP, TROP #### [facility] [address] [place] [address] Katarina Gia IG # 0.02 10e3/ul Normal 0.00-0.03 [facility] Comment on above: Performed By: #### B ASSOCIATE MERCHANDISER, CMP, TROP #### [facility] [address] [place] [address] Katarina Gia IG % 0.2 % Normal 0.0-0.5 [facility] Comment on above: Performed By: #### B ASSOCIATE MERCHANDISER, CMP, TROP #### [facility] [address] [place] [address] Katarina Gia LYMPH # 1.7 103/ul Normal 1.2-3.8 [facility] Comment on above: Performed By: #### B ASSOCIATE MERCHANDISER, CMP, TROP #### [facility] [address] [place] [address] Katarina Gia Lymphocytes/100 WBC (Bld) 16.7 % Critically low 20.5-60.0 [facility] Comment on above: Performed By: #### B ASSOCIATE MERCHANDISER, CMP, TROP #### [facility] [address] [place] [address] Katarina Gia MANUAL DIFF REQ NO Normal [facility] Comment on above: Performed By: #### B ASSOCIATE MERCHANDISER, CMP, TROP #### [facility] [address] [place], [place] [id number] Katarina Gia MCH (RBC) [Entitic mass] 29.6 pg Normal 25.9-34.0 [facility] Comment on above: Performed By: #### B ASSOCIATE MERCHANDISER, CMP, TROP #### [facility] [address] [place], [place] [id number] Katarinavictoria Nielsen MCHC (RBC) [Mass/Vol] 33.0 g/dL Normal 29.9-35.2 [facility] Comment on above: Performed By: #### B ASSOCIATE MERCHANDISER, CMP, TROP #### [facility] [address] [place], [place] [id number] Katarina Gia MCV (RBC) [Entitic vol] 89.6 fL Normal 80.0-94.0 [facility] Comment on above: Performed By: #### B ASSOCIATE MERCHANDISER, CMP, TROP #### [facility] [address] [place] [address] Katarina Gia MONO # 1.2 103/ul Critically high 0.3-0.8 [facility] Comment on above: Performed By: #### B ASSOCIATE MERCHANDISER, CMP, TROP #### [facility] [address] [place], [place] [id number] Katarina Gia Monocytes/100 WBC (Bld) 11.4 % Normal 1.7-12.0 [facility] Comment on above: Performed By: #### B ASSOCIATE MERCHANDISER, CMP, TROP #### [facility] [address] [place], [place] [id number] Katarina Gia NEUT # 7.1 103/ul Critically high 1.4-6.5 [facility] Comment on above: Performed By: #### B ASSOCIATE MERCHANDISER, CMP, TROP #### [facility] [address] [place], [place] [id number] Katarina Gia Neutrophils/100 WBC (Bld) 70.4 % Normal 43.0-75.0 [facility] Comment on above: Performed By: #### B ASSOCIATE MERCHANDISER, CMP, TROP #### [facility] [address] [place], [place] [id number] Katarina Gia Platelet mean volume (Bld) [Entitic vol] 9.5 fL Normal 9.5-13.5 [facility] Comment on above: Performed By: #### B ASSOCIATE MERCHANDISER, CMP, TROP #### [facility] [address] [place], [place] [address] Katarnia Gia PLT 339 103/ul Normal 150-450 [facility] Comment on above: Performed By: #### B ASSOCIATE MERCHANDISER, CMP, TROP #### [facility] [address] [place], [place] [address] Katarina Gia RBC 5.10 106/ul Normal 4.70-6.10 [facility] Comment on above: Performed By: #### B ASSOCIATE MERCHANDISER, CMP, TROP #### [facility] [address] [place], [place] [address] Katarina Gia WBC 10.1 103/ul Normal 4.0-11.0 [facility] Comment on above: Performed By: #### B ASSOCIATE MERCHANDISER, CMP, TROP #### [facility] [address] [place], [place] [address] Katarina Nielsen CTA CHEST WO W CONon [...] ANTONIO REDD Date: 2020-02-08 14:04 Normal [facility] PROF 14(COMP METB)on 020 Albumin [Mass/Vol] 3.7 g/dL Normal 3.5-5.0 [facility] Comment on above: Performed By: #### B ASSOCIATE MERCHANDISER, CMP, TROP #### [facility] [address] [place], [place] [address] Katarina Gia Albumin/Globulin [Mass ratio] 1.1 {ratio} Normal [facility] Comment on above: Performed By: #### B ASSOCIATE MERCHANDISER, CMP, TROP #### [facility] [address] [place], [place] [address] Katarina Gia ALP [Catalytic activity/Vol] 72 U/L Normal 38-126 [facility] Comment on above: Performed By: #### B ASSOCIATE MERCHANDISER, CMP, TROP #### [facility] [address] [place] [id number] Katarina Gia ALT [Catalytic activity/Vol] 43 U/L Normal 21-72 [facility] Comment on above: Performed By: #### B ASSOCIATE MERCHANDISER, CMP, TROP #### [facility] [address] [place], [place] [address] Katarina Gia Anion gap [Moles/Vol] 13.1 mmol/L Normal [facility] Comment on above: Performed By: #### B ASSOCIATE MERCHANDISER, CMP, TROP #### [facility] [address] [place], [place] [address] Katarina Gia AST [Catalytic activity/Vol] 31 U/L Normal 17-59 [facility] Comment on above: Performed By: #### B ASSOCIATE MERCHANDISER, CMP, TROP #### [facility] [address] [place], [place] [address] Katarina Gia Bilirubin [Mass/Vol] 0.5 mg/dL Normal 0.2-1.3 [facility] Comment on above: Performed By: #### B ASSOCIATE MERCHANDISER, CMP, TROP #### [facility] [address] [place], [place] [address] Katarina Gia Calcium [Mass/Vol] 9.2 mg/dL Normal 8.4-10.2 [facility] Comment on above: Performed By: #### B ASSOCIATE MERCHANDISER, CMP, TROP #### [facility] [address] [place] [id number] Katarina Gia Chloride [Moles/Vol] 96 mmol/L Critically low 98-107 [facility] Comment on above: Performed By: #### B ASSOCIATE MERCHANDISER, CMP, TROP #### [facility] [address] [place] [address] Katarina Gia CO2 [Moles/Vol] 27.0 mmol/L Normal 22.0-30.0 [facility] Comment on above: Performed By: #### B ASSOCIATE MERCHANDISER, CMP, TROP #### [facility] [address] [place] [address] Katarina Gia Creatinine [Mass/Vol] 0.88 mg/dL Normal 0.66-1.25 [facility] Comment on above: Performed By: #### B ASSOCIATE MERCHANDISER, CMP, TROP #### [facility] [address] [place] [address] Katarina Gia EGFR-AF TURKMEN >60 Normal >=60 [facility] Comment on above: Performed By: #### B ASSOCIATE MERCHANDISER, CMP, TROP #### [facility] [address] [place] [id number] Katarina Gia EGFR-NON AF TURKMEN >60 Normal >=60 [facility] Comment on above: Performed By: #### B ASSOCIATE MERCHANDISER, CMP, TROP #### [facility] [address] [place] [phone] Katarina Gia Globulin (S) [Mass/Vol] 3.5 g/dL Normal [facility] Comment on above: Performed By: #### B ASSOCIATE MERCHANDISER, CMP, TROP #### [facility] [address] [place] [address] Katarina Gia Glucose [Mass/Vol] 93 mg/dL Normal 74-106 [facility] Comment on above: Performed By: #### B ASSOCIATE MERCHANDISER, CMP, TROP #### [facility] [address] [place] [address] Katarina Gia Potassium [Moles/Vol] 4.1 mmol/L Normal 3.4-5.0 [facility] Comment on above: Performed By: #### B ASSOCIATE MERCHANDISER, CMP, TROP #### [facility] [address] [place] [address] Katarina Gia Protein [Mass/Vol] 7.2 g/dL Normal 6.1-8.2 [facility] Comment on above: Performed By: #### B ASSOCIATE MERCHANDISER, CMP, TROP #### [facility] [address] [place] [address] Katarina Gia Sodium [Moles/Vol] 132 mmol/L Critically low 137-145 [facility] Comment on above: Performed By: #### B ASSOCIATE MERCHANDISER, CMP, TROP #### [facility] [address] [place] [address] Katarina Gia Urea nitrogen [Mass/Vol] 13.0 mg/dL Normal 9.0-20.0 [facility] Comment on above: Performed By: #### B ASSOCIATE MERCHANDISER, CMP, TROP #### [facility] [address] [place] [address] Katarina Gia Urea nitrogen/Creatinin e [Mass ratio] 14.8 mg/mg Normal [facility] Comment on above: Performed By: #### B ASSOCIATE MERCHANDISER, CMP, TROP #### [facility] [address] [place] [address] Katarina Gia PROTIMEon 02-08-2020 INR Coag (PPP) [Relative time] 0.97 {INR} Normal [facility] Comment on above: Performed By: #### B ASSOCIATE MERCHANDISER, CMP, TROP #### [facility] [address] [place] [address] Katarina Gia INR GUIDELINES SEE BELOW Normal [facility] Comment on above: Result Comment: TEENA RED INR: 2.0 - 3.0 CONDITIONS NOT LISTED BELOW 2.5 - 3.5 FOR PROSTHETIC HEART VALVE REPLACEMENT 2.5 - 3.5 RECURRENT THROMBOSIS Performed By: #### B ASSOCIATE MERCHANDISER, CMP, TROP #### [facility] [address] [place] [address] Katarina Gia PT Coag (PPP) [Time] 10.3 s Normal 9.0-11.6 [facility] Comment on above: Performed By: #### B ASSOCIATE MERCHANDISER, CMP, TROP #### [facility] [address] [place] [address] Katarina Nielsen PT NORMAL PLEASE NOTE: NORMAL RANGE CHANGE 12-23-2013 DUE TO REAGENT LOT CHANGE Normal [facility] Comment on above: Performed By: #### B ASSOCIATE MERCHANDISER, CMP, TROP #### [facility] [address] [place] [address] Katarina Nielsen PTTon 02-08-2020 aPTT Coag (Bld) [Time] 27.2 s Normal 22.3-36.2 [facility] Comment on above: Performed By: #### B ASSOCIATE MERCHANDISER, CMP, TROP #### [facility] [address] [place] [address] Katarina Nielsen PTT NORMAL PLEASE NOTE: NORMAL RANGE CHANGE 03-01-2015 DUE TO REAGENT LOT CHANGE Normal [facility] Comment on above: Performed By: #### B ASSOCIATE MERCHANDISER, CMP, TROP #### [facility] [address] [place] [address] Katarina Gia Rapid Covid-19 PCRon 020 [employer] LDT Info SEE BELOW Normal [facility] Comment on above: Result Comment: This test is not yet approved or cleared by the [place] Food and Drug Administration (FDA) . This test was developed by [employer] [facility], [facility]. The performance characteristics of this test were validated by [facility]. The results are not intended to be used as the sole means for clinical diagnosis or patient management decisions. [facility] is authorized under Clinical Laboratory Improvement Amendments (CLIA) to perform high-complexity testing. When diagnostic testing is negative, the possibility of a false negative should be considered in the context of a patients recent exposures and the presence of clinical signs and symptoms consistent with SARS-CoV-2. Performed By: #### B ASSOCIATE MERCHANDISER, CMP, TROP #### [facility] [address] [place] [address] [facility] SARS-[facility]-2 (COVID-19) RNA FAIZAN+probe Ql (Unsp spec) Not detected Normal NOT DETECTED [facility] Comment on above: Result Comment: . Performed By: #### B ASSOCIATE MERCHANDISER, CMP, TROP #### [facility] [address] [place] [address] Katarina Nielsen TROPONIN - Ion 02-08-2020 TROP <0.012 Normal <=0.034 [facility] Comment on above: Performed By: #### B ASSOCIATE MERCHANDISER, CMP, TROP #### [facility] [address] [place] [address] Katarina Gia TROPONIN RANGE SEE BELOW Normal [facility] Comment on above: Result Comment: <0.0 34 ng/ml NEGATIVE 0.034-0.119 INDETERMINATE 0.120 AMI CUT OFF Performed By: #### B ASSOCIATE MERCHANDISER, CMP, TROP #### [facility] [address] [place] [address] Katarina Gia TROP <0.012 Normal <=0.034 [facility] Comment on above: Performed By: #### B ASSOCIATE MERCHANDISER, CMP, TROP #### [facility] [address] [place] [address] Katarina Gia TROPONIN RANGE SEE BELOW Normal [facility] Comment on above: Result Comment: <0.0 34 ng/ml NEGATIVE 0.034-0.119 INDETERMINATE 0.120 AMI CUT OFF Performed By: #### B ASSOCIATE MERCHANDISER, CMP, TROP #### [facility] [address] [place] [address] Katarinavictoria Nielsen XR CHEST 1 Von 02-08-2020 [...] AILYN ROSE Date: 2020-02-08 12:14 Normal [facility] BNPon 02-03-2020 Natriuretic peptide B (Bld) [Mass/Vol] 81.0 pg/mL Normal <=900.0 [facility] Comment on above: Performed By: #### C MP, T4, TSH, BNP, FT3 #### [facility] [address] [place] [address] Katarina Gia CBC AUTO DIFFon 02-03-2020 BASO # 0.1 103/ul Normal 0.0-0.1 [facility] Comment on above: Performed By: #### B ASSOCIATE MERCHANDISER, CMP, TROP #### [facility] [address] [address] Katarina Gia Basophils/100 WBC (Bld) 0.9 % Normal 0.2-2.0 [facility] Comment on above: Performed By: #### B ASSOCIATE MERCHANDISER, CMP, TROP #### [facility] [address] [address] Katarina Gia EO # 0.1 103/ul Normal 0.0-0.7 [facility] Comment on above: Performed By: #### B ASSOCIATE MERCHANDISER, CMP, TROP #### [facility] [address] [place] [address] Katarina Gia Eosinophils/100 WBC (Bld) 0.9 % Normal 0.9-7.0 [facility] Comment on above: Performed By: #### B ASSOCIATE MERCHANDISER, CMP, TROP #### [facility] [address] [address] Katarina Gia Erythrocyte distribution width (RBC) [Ratio] 14.2 % Normal 11.0-15.0 [facility] Comment on above: Performed By: #### B ASSOCIATE MERCHANDISER, CMP, TROP #### [facility] [address] [place] [address] Katarina Gia Hematocrit (Bld) [Volume fraction] 45.1 % Normal 42.0-54.0 [facility] Comment on above: Performed By: #### B ASSOCIATE MERCHANDISER, CMP, TROP #### [facility] [address] [address] Katarina Gia Hemoglobin (Bld) [Mass/Vol] 14.3 g/dL Normal 14.0-18.0 [facility] Comment on above: Performed By: #### B ASSOCIATE MERCHANDISER, CMP, TROP #### [facility] [address] [address] Katarina Gia IG # 0.04 10e3/ul Critically high 0.00-0.03 [facility] Comment on above: Performed By: #### B ASSOCIATE MERCHANDISER, CMP, TROP #### [facility] [address] [place], [place] [address] Katarinavictoria Nielsen IG % 0.5 % Normal 0.0-0.5 [facility] Comment on above: Performed By: #### B ASSOCIATE MERCHANDISER, CMP, TROP #### [facility] [address] [id number] Katarina Gia LYMPH # 1.9 103/ul Normal 1.2-3.8 [facility] Comment on above: Performed By: #### B ASSOCIATE MERCHANDISER, CMP, TROP #### [facility] [address] [id number] Katarina Nielsen Lymphocytes/100 WBC (Bld) 24.5 % Normal 20.5-60.0 [facility] Comment on above: Performed By: #### B ASSOCIATE MERCHANDISER, CMP, TROP #### [facility] [address] [id number] Katarina Nielsen MANUAL DIFF REQ NO Normal [facility] Comment on above: Performed By: #### B ASSOCIATE MERCHANDISER, CMP, TROP #### [facility] [address] [id number] Katarina Nielsen MCH (RBC) [Entitic mass] 28.6 pg Normal 25.9-34.0 [facility] Comment on above: Performed By: #### B ASSOCIATE MERCHANDISER, CMP, TROP #### [facility] [address] [id number] Katarina Nielsen MCHC (RBC) [Mass/Vol] 31.7 g/dL Normal 29.9-35.2 [facility] Comment on above: Performed By: #### B ASSOCIATE MERCHANDISER, CMP, TROP #### [facility] [address] [id number] Katarina Nielsen MCV (RBC) [Entitic vol] 90.2 fL Normal 80.0-94.0 [facility] Comment on above: Performed By: #### B ASSOCIATE MERCHANDISER, CMP, TROP #### [facility] [address] [id number] Katarina Nielsen MONO # 1.0 103/ul Critically high 0.3-0.8 [facility] Comment on above: Performed By: #### B ASSOCIATE MERCHANDISER, CMP, TROP #### [facility] [address] [place] [address] Katarina Gia Monocytes/100 WBC (Bld) 12.4 % Critically high 1.7-12.0 [facility] Comment on above: Performed By: #### B ASSOCIATE MERCHANDISER, CMP, TROP #### [facility] [address] [place] [address] Katarina Gia NEUT # 4.8 103/ul Normal 1.4-6.5 [facility] Comment on above: Performed By: #### B ASSOCIATE MERCHANDISER, CMP, TROP #### [facility] [address] [place] [address] Katarina Gia Neutrophils/100 WBC (Bld) 60.8 % Normal 43.0-75.0 [facility] Comment on above: Performed By: #### B ASSOCIATE MERCHANDISER, CMP, TROP #### [facility] [address] [place] [address] Katarina Gia Platelet mean volume (Bld) [Entitic vol] 9.3 fL Critically low 9.5-13.5 [facility] Comment on above: Performed By: #### B ASSOCIATE MERCHANDISER, CMP, TROP #### [facility] [address] [place] [address] Katarina Gia PLT 323 103/ul Normal 150-450 [facility] Comment on above: Performed By: #### B ASSOCIATE MERCHANDISER, CMP, TROP #### [facility] [address] [place] [address] Katarina Gia RBC 5.00 106/ul Normal 4.70-6.10 [facility] Comment on above: Performed By: #### B ASSOCIATE MERCHANDISER, CMP, TROP #### [facility] [address] [place] [address] Katarina Gia WBC 7.9 103/ul Normal 4.0-11.0 [facility] Comment on above: Performed By: #### B ASSOCIATE MERCHANDISER, CMP, TROP #### [facility] [address] [place] [address] Katarina Gia FREE T3on 02-03-2020 Free T3 [Mass/Vol] 2.89 pg/mL Normal 2.77-5.27 [facility] Comment on above: Performed By: #### C MP, T4, TSH, BNP, FT3 #### [facility] [address] [place], [place] [id number] Katarina Nielsen PROF 14(COMP METB)on 020 Albumin [Mass/Vol] 3.8 g/dL Normal 3.5-5.0 [facility] Comment on above: Performed By: #### C MP, T4, TSH, BNP, FT3 #### [facility] [address] [place], [place] [id number] Katarina Nielsen Albumin/Globulin [Mass ratio] 1.2 {ratio} Normal [facility] Comment on above: Performed By: #### C MP, T4, TSH, BNP, FT3 #### [facility] [address] [place] [address] Katarina Nielsen ALP [Catalytic activity/Vol] 73 U/L Normal 38-126 [facility] Comment on above: Performed By: #### C MP, T4, TSH, BNP, FT3 #### [facility] [address] [place] [address] Katarina Nielsen ALT [Catalytic activity/Vol] 52 U/L Normal 21-72 [facility] Comment on above: Performed By: #### C MP, T4, TSH, BNP, FT3 #### [facility] [address] [place] [address] Katarina Nielsen Anion gap [Moles/Vol] 8.6 mmol/L Normal [facility] Comment on above: Performed By: #### C MP, T4, TSH, BNP, FT3 #### [facility] [address] [place] [address] Katarina Nielsen AST [Catalytic activity/Vol] 35 U/L Normal 17-59 [facility] Comment on above: Performed By: #### C MP, T4, TSH, BNP, FT3 #### [facility] [address] [place] [address] Katarina Nielsen Bilirubin [Mass/Vol] 0.4 mg/dL Normal 0.2-1.3 [facility] Comment on above: Performed By: #### C MP, T4, TSH, BNP, FT3 #### [facility] [address] [place] [address] Katarina Gia Calcium [Mass/Vol] 8.9 mg/dL Normal 8.4-10.2 [facility] Comment on above: Performed By: #### C MP, T4, TSH, BNP, FT3 #### [facility] [address] [place] [address] Katarina Gia Chloride [Moles/Vol] 101 mmol/L Normal 98-107 [facility] Comment on above: Performed By: #### C MP, T4, TSH, BNP, FT3 #### [facility] [address] [place] [address] Katarina Gia CO2 [Moles/Vol] 32.9 mmol/L Critically high 22.0-30.0 [facility] Comment on above: Performed By: #### C MP, T4, TSH, BNP, FT3 #### [facility] [address] [place] [address] Katarina Gia Creatinine [Mass/Vol] 0.81 mg/dL Normal 0.66-1.25 [facility] Comment on above: Performed By: #### C MP, T4, TSH, BNP, FT3 #### [facility] [address] [place] [address] Katarina Gia EGFR-AF TURKMEN >60 Normal >=60 [facility] Comment on above: Performed By: #### C MP, T4, TSH, BNP, FT3 #### [facility] [address] [place] [address] Katarina Gia EGFR-NON AF TURKMEN >60 Normal >=60 [facility] Comment on above: Performed By: #### C MP, T4, TSH, BNP, FT3 #### [facility] [address] [place] [address] Katarina Gia Globulin (S) [Mass/Vol] 3.3 g/dL Normal [facility] Comment on above: Performed By: #### C MP, T4, TSH, BNP, FT3 #### [facility] [address] [place] [address] Katarina Gia Glucose [Mass/Vol] 95 mg/dL Normal 74-106 [facility] Comment on above: Performed By: #### C MP, T4, TSH, BNP, FT3 #### [facility] [address] [place] [address] Katarina Gia Potassium [Moles/Vol] 4.5 mmol/L Normal 3.4-5.0 [facility] Comment on above: Performed By: #### C MP, T4, TSH, BNP, FT3 #### [facility] [address] [place] [address] Katarina Gia Protein [Mass/Vol] 7.1 g/dL Normal 6.1-8.2 [facility] Comment on above: Performed By: #### C MP, T4, TSH, BNP, FT3 #### [facility] [address] [place] [address] Katarina Gia Sodium [Moles/Vol] 138 mmol/L Normal 137-145 [facility] Comment on above: Performed By: #### C MP, T4, TSH, BNP, FT3 #### [facility] [address] [place] [address] Katarina Gia Urea nitrogen [Mass/Vol] 13.0 mg/dL Normal 9.0-20.0 [facility] Comment on above: Performed By: #### C MP, T4, TSH, BNP, FT3 #### [facility] [address] [place] [address] Katarina Gia Urea nitrogen/Creatinin e [Mass ratio] 16.0 mg/mg Normal [facility] Comment on above: Performed By: #### C MP, T4, TSH, BNP, FT3 #### [facility] [address] [place] [address] Katarina Gia T4on 02-03-2020 T4 [Mass/Vol] 6.20 ug/dL Normal 5.53-11.00 [facility] Comment on above: Performed By: #### C MP, T4, TSH, BNP, FT3 #### [facility] [address] [address] Katarina Nielsen TSHon 02-03-2020 TSH 5.662 uIU/mL Critically high 0.470-4.680 [facility] Comment on above: Performed By: #### B ASSOCIATE MERCHANDISER, CMP, TROP #### [facility] [address] [place], [place] [address] TSH RANGE SEE BELOW Normal [facility] Comment on above: Result Comment: <0.3 4 UIU/ml HYPERTHYROID 0.34-5.60 UIU/ml EUTHYROID >5.60 UIU/ml HYPOTHYROID Performed By: #### B ASSOCIATE MERCHANDISER, CMP, TROP #### [facility] [address] [place] [address] COVID-19 PCRon 02-02-2020 SARS-CoV-2 (COVID-19) RNA FAIZAN+probe Ql (Unsp spec) Not detected Normal Not Detected [facility] Comment on above: Result Comment: This nucleic acid amplification test was developed and its performance characteristics determined by [employer]. Nucleic acid amplification tests include PCR and [...] in this assay. Performed By: #### B ASSOCIATE MERCHANDISER, CMP, TROP #### [facility] [address] [place] [address] Katarina Nielsen NM STRESS/REST MULTIon 01-30 NM STRESS/REST MULTI Patient: LISSY SAMUEL Exam Date: 01/31/2020 : 1960 Gender:M Ordering : DR CLOVER REGAN . Admission #: [id number] Family : Order #: [id number] CLICK HERE TO VIEW EXAM RADIOLOGY REPORT [...] MD on 01/31/2020 at 14:31 Normal [facility] COVID-19 PCRon 01-21-2020 SARS-CoV-2 (COVID-19) RNA FAIZAN+probe Ql (Unsp spec) Not detected Normal Not Detected [facility] Comment on above: Result Comment: This nucleic acid amplification test was developed and its performance characteristics determined by [employer]. Nucleic acid amplification tests include PCR and [...] assay. Performed By: #### C VDPCR #### [facility] [address] [place] [address] Katarina Nielsen Encounters Encounter Date Encounter Type Care Provider Facility Start: 08-18-2024 End: 08-18-2024 ambulatory [facility] Start: 02-25-2024 End: 02-25-2024 ambulatory Gary Beltrán [facility] Work Phone: Start: 02-25-2024 End: 02-25-2024 Departed Referred Gary Beltrán MD Work Phone: [facility] [place] Work Phone: Start: 02-18-2024 End: 02-18-2024 ambulatory [facility] Start: 12-05-2023 End: 12-05-2023 Office outpatient new 30 minutes Elis RODRÍGUEZ Work Phone: [facility] Comment on above: Epidermal inclusion cyst (Primary Dx) Start: 09-02-2023 End: 09-02-2023 ambulatory [facility] Start: 10-24-2020 End: 10-25-[address] CLOVER [...] REGAN Facility:H1 Payers Date Payer Category Payer Managed Care HMO (unspecified) JEREMIE BARNARDMelaJAMAR [id number] 2020-Present [address] [place] [address] O [id number] 1960 Unknown [id number] 1960 Unknown [id number] 93 1960 Unknown [id number] 93 1960 Unknown [id number] 93 1960 Unknown [id number] 93 1960 Unknown [id number] 93 1960 Unknown [id number] 93 1959 Private Health Insurance [id number] 1959 Self-pay 1959 Unknown [id number] Unknown [id number] 31 Social History Date Type Detail Facility Tobacco smoking stat us NHIS Unknown if ever smoked [facility] Start: 02-26-2024 Sex Male (finding) [facility] Start: 1960 Sex Assigned At Male [facility] Start: 12-05-2023 Tobacco smoking stat [facility] Ex-smoker [facility] History of tobacco use Current smoker [facility] History of tobacco use Cigarette Smoker [facility] Start: 12-05-2023 Tobacco use and exposure Smokeless tobacco non-user [facility] Start: 12-05-2023 Alcoholic beverage intake Current drinker of alcohol (finding) [facility] Start: 12-05-2023 History of Social function [facility] Start: 12-05-2023 Tobacco use panel [facility] Start: 1960 Sex assigned at Not on file N [facility] Progress note 08-18-2024 Note Date & Type Note Facility 08-18-2024 Note [facility] Cardiology Clinic Note Chief Complaint: Patient here for 6 mo follow up. Patient states he is doing fine, no cardiac complaints at this time. HPI: Lissy Samuel is a 64 y.o. male With shortness of breath; recently had coronary angiography which showed nonobstructive coronary arteries. Was subsequently diagnosed with asthma and feels much better on inhaler therapy. No new cardiovascular complaints. The left radial access site was slightly sore for a couple of weeks but had no bleeding or bruising. Update 08/18/2024: Doing well; no new cardiovascular symptoms Cardiology ROS: Review of Systems Cardiovascular: Dyspnea on exertion: stable. All other systems reviewed and are negative. Past Medical History He has a past medical history of Asthma, Hyperlipidemia, Hypertension, and Hypothyroidism. Surgical History He has a past surgical history that includes Cardiac catheterization. Social History He reports that he quit smoking about 13 years ago. His smoking use included cigarettes. [...] , Rfl: carvedilol (Coreg) 3.125 mg tablet, TAKE 1 TABLET BY MOUTH TWICE A DAY WITH MEALS, Disp: 180 tablet, Rfl: 3 dapagliflozin propanediol (Farxiga) 10 mg, Take 1 tablet (10 mg) by mouth once daily as directed., Disp: 90 tablet, Rfl: 3 levothyroxine (Synthroid, Levoxyl) 75 mcg tablet, take 1 tablet by mouth every morning ON AN EMPTY STOMACH, Disp: , Rfl: liothyronine sodium (LIOTHYRONINE ORAL), Take 5 mcg by mouth in the morning., Disp: , Rfl: lisinopril 10 mg tablet, Take 1 tablet (10 mg) by mouth in the morning., Disp: 90 tablet, Rfl: 3 simvastatin (Zocor) 20 mg tablet, Take 20 mg by mouth in the evening., Disp: , Rfl: Last Recorded Vitals BP 152/88 (BP Location: Left arm, Patient Position: Sitting) Pulse 69 Ht 1.88 m (6' 2 ) Wt 93 kg (205 lb) SpO2 95% BMI 26.32 kg/m??? Physical Examination: GENERAL: alert and oriented [...] time Follow-up with Dr. David in the [facility] in 2 months Follow-up with Dr. Clover Regan his primary care physician in [place] PROCEDURES: Ultrasound-guided access to the left radial artery, bilateral selective coronary angiography via a left radial approach Echocardiogram 10/03/2023: Global left ventricular systolic function is low normal limits; ejection fraction 50 to 55% Normal right ventricular size and systolic function Normal diastolic function No significant valvular dysfunction Normal right-sided pressures Labs 02/27/2024: Electrolytes are all normal apart from a glucose of 109. Creatinine is 1.07. Assessment: Heart failure With recovered ejection fraction Hypertension - Poorly controlled Dyspnea on exertion; recently diagnosed with asthma Hypothyroidism Plan: Continue optimal medical therapy for heart failure with midrange ejection fraction; he is on lisinopril, will increase Coreg to 6.25 mg p.o. twice daily. If his shortness of breath is worsened, will switch to a beta selective agent such as metoprolol. (more content not included)... [facility] Progress note 02-18-2024 Note Date & Type Note Facility 02-18-2024 Note [facility] Cardiology Clinic Note Chief Complaint: [...] time Follow-up with Dr. David in the [facility] in 2 months Follow-up with Dr. Clover Regan his primary care physician in [place] PROCEDURES: Ultrasound-guided access to the left radial [...] a week T (more content not included)... [facility] History of Present illness Narrative 12-05-2023 ANNE Canada - 12/05/2023 11:15 AM EDT Note Date & Type Note Facility 12-05-2023 History of Presen t illness Narrative Images from the original note were not included. Lesions: Location: top of head Duration: years Quality: denies pain, denies itch, denies bleeding Modifying factors: aggravated by picking Associated symptoms: enlarged Treatments: none New patient All pertinent medical history, medications, and allergies were reviewed. General Exam: alert , oriented to person, place, and time , normal affect, well appearing Unaccompanied A focused exam completed based on patient reported problems, see below: 1. Epidermal inclusion cyst Mid Frontal Scalp 2.0 x 2.0 cm subcutaneous, mobile nodule without central punctum. Patient was counseled regarding cysts. Although benign, cysts often slowly enlarge and can occasionally become inflamed. Discussed the only way to definitively diagnose the lesion would be to have it removed and tested. Discussed treatment options including observation vs. excision. Patient elected for excision. Discussed procedure in detail. Patient opted for referral to Plastic Surgeon as he would like this done as soon as possible. Will send referral to Dr. Beltrán. Follow up as needed. Ambulatory referral to Plastic Surgery - Mid Frontal Scalp Next Visit: prn for any new/changing lesions documented in this encounter [facility] Progress note 09-02-2023 Note Date & Type Note Facility 09-02-2023 Note [facility] Cardiology Clinic Note Chief Complaint: [...] time Follow-up with Dr. David in the [facility] in 2 months Follow-up with Dr. Clover Regan his primary care physician in [place] PROCEDURES: Ultrasound-guided access to the left radial [...] problems arise Tracey David MD, MPH, FACC, [facility], [facility] Interventional Cardiology Pager Email: [email or web address] Evaluation note Note Date & Type Note Facility Evaluation note No assessment information availa [facility] Work Phone: Evaluation note Note Date & Type Note Facility Evaluation note Diagnosis Epidermal inclusion cyst- Primary Sebaceous cyst documented in this encounter [facility] Reason for referral (narrative) Consultation (Routine) - Pending Review Note Date & Type Note Facility Reason for referral (narrati ve) Specialty Diagnoses / Procedures Referred By Contac t Referred To Contact Plastic Surgery Diagnoses Epidermal inclusion cyst Procedures AR OFFICE/OUTPATIENT [facility] 60 MINUTES Elis Coleman PA [address] [place] [address] Gary Beltrán MD [address] [facility] [address] [place] [address] Referral ID Status Reason Start Date Expiration Date Visits Requested Visits Authorized [id number] Pending Review Specialty Services Required 12/05/2023 06/02/2024 1 1 [facility] Summary Purpose Family History No Family History Records FoundNo Family History Records FoundNo Family History Records Found Advance Directives No Advanced Directives Records FoundNo Advanced Directives Records FoundNo Advanced Directives Records Found Additional Source Comments (unrecognized sect ion and content) No Status Records FoundNo Status Records FoundNo Status Records Found INFORMATION SOURCE (unrecogn ized section and content) DATE CREATED AUTHOR 11/10/2020 [facility] DATE CREATED AUTHOR AUTHOR'S ORGANIZ ATION 03/07/2024 [facility] DATE CREATED AUTHOR AUTHOR'S SHAY VALVERDE 08/19/2024 [facility] Teams (unrecognized sec tion and content) [...] BE BASED ON THE PRIMARY CLINICAL RECORDS. [email or web address] provides no warranty or guarantee of the accuracy or completeness of information in this document.
--- OUTSIDE RECORDS SUMMARY | 2024-09-06 07:36 | XMS_ITS | Clinical Summary ---
Author Organization [facility] Address [address] [place] [address] Care Team Providers Care Surveillance Manager Name Role Phone Morgan Regan MD Primary Care Provider Allergies No known active allergies Medications Medication Sig Dispensed Refills Start Date End Date Status levothyroxine (Synthroid, Levoxyl) 75 mcg tablet take 1 tablet by mouth every morning ON AN EMPTY STOMACH 05/13/2023 Active liothyronine sodium (LIOTHYRONINE ORAL) Take 5 mcg by mouth in the morning. 05/13/2023 Active simvastatin (Zocor) 20 mg tablet Take 20 mg by mouth in the evening. 05/13/2023 Active Breo Ellipta 100-25 mcg/dose inhaler Inhale 1 puff 1 (one) time each day at the same time. 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 90 tablet 3 02/18/2024 Active lisinopril 10 mg tabletIndications: Essential hypertension Take 1 tablet (10 mg) by mouth in the morning. 90 tablet 3 05/10/2024 6 Active carvedilol (Coreg) 3.125 mg tabletIndications: Essential hypertension TAKE 1 TABLET BY MOUTH TWICE A DAY WITH MEALS 180 tablet 3 08/09/2024 Active carvedilol (Coreg) 6.25 mg tabletIndications: Dyspnea on exertion,Heart failure with mildly reduced ejection fraction (HFmrEF) (CMS/HCC) Take 1 tablet (6.25 mg) by mouth with breakfast and with evening meal. 180 tablet 3 08/18/2024 6 Active carvedilol (Coreg) 3.125 mg tabletIndications: Essential hypertension Take 1 tablet (3.125 mg) by mouth with breakfast and with evening meal. 180 tablet 3 09/02/2023 Discontinued Active Problems Problem Noted Date Diagnosed Date Acute sinusitis 09/02/2023 Calcified lymph nodes 09/02/2023 Dyspnea 09/02/2023 History of tobacco use 09/02/2023 Hypercholesterolemia 09/02/2023 Hypertension 09/02/2023 Hypothyroid 09/02/2023 sde (current) use of inhaled steroids 08/06 Moderate persistent asthma without complication 09/02/2023 Abnormal cardiovascular stress test 06/12/2023 Reduced ejection fraction co ncurrent with and due to acute heart failure 06/12/2023 Encounters Date Type Department Care Team Description 08/18/2024 9:45 AM EDT Office Visit [facility] [place] [address] [place] [address] Tracey David MD Dyspnea on exertion (Primary Dx); Heart failure with mildly reduced ejection fraction (HFmrEF) (CMS/[facility]); Essential hypertension 08/07/2024 Refill [facility] [place] [address] [place] [address] Tracey David MD Essential hypertension from Last 3 Months Family History Medical History Relation Name Comments No Known Problems Father Coronary artery disease Father's Brother No Known Problems Mother Relation Name Status Comments Brother Alive Father Alive Father's Brother Mother Alive Sister Alive Social History Tobacco Use Types Packs/Day Years Used Date Smoking Tobacco: Former Cigarettes Q uit: 2012 Smokeless Tobacco: Never Tobacco Cessation:Counseling Given: Not Answered Alcohol Use Standard Drinks/Week Comments Yes 0 (1 standard drink = 0.6 oz pur e alcohol) 7 to per week [place] Safety [facility] Environment Answer Date Rec orded Fear of Current or Ex-Partner Not on file Emotionally Abused Not on file 05/29/2023 Physically Abused Not on file 05/29/2023 Sexually Abused Not on file 05/29/2023 Physically or Sexually Abused Not on file Sex and Gender Information Value Date Recorded Sex Assigned at Not on file Gender Identity Not on file Sexual Orientation Not on file Last Filed Vital Signs Vital Sign Reading Time Taken Comments Blood Pressure 152/88 08/18/2024 9:38 AM EDT Pulse 69 08/18/2024 9:38 AM EDT Temperature - - Respiratory Rate 18 07/03/2023 1:30 PM EDT Oxygen Saturation 95% 08/18/2024 9:38 AM EDT Inhaled Oxygen Concentration - - Weight 93 kg (205 lb) 08/18/2024 9:38 AM EDT Height 188 cm (6' 2 ) 08/18/2024 9:38 AM EDT Body Mass Index 26.32 08/18/2024 9:38 AM EDT Plan of Treatment Health Maintenance Due Date Last Done Comments CT Colonography 1960 Colonoscopy 1960 Colorectal Cancer Screening 1960 FIT-DNA 1960 FIT 1960 FOBT 1960 Sigmoidoscopy 1960 Pneumococcal Vaccine: Pediatrics (0 to 5 Years) and At-Risk Patients (6 to 64 Years) (1 of 2 - PCV) 1966 Depression Screening 1972 Adult Tetanus 1982 Zoster Vaccines (1 of 2) 2010 COVID-19 Vaccine (2023-2 5 season) 2023 Influenza Vaccine (Season Ended) 2024 01/26/2018, 01/27/2015 HIB Vaccines Aged Out No longer eligi ble based on patient's age to complete this topic HPV Vaccines Aged Out No longer eligi ble based on patient's age to complete this topic IPV Vaccines Aged Out No longer eligi ble based on patient's age to complete this topic Meningococcal B Vaccine Aged Out No l onger eligible based on patient's age to complete this topic Meningococcal Vaccine Aged Out No katarzyna meka eligible based on patient's age to complete this topic Rotavirus Vaccines Aged Out No longer eligible based on patient's age to complete this topic Care Teams Surveillance Manager Relationship Specialty Start Date End Date Morgan Regan MD [address] [place] [address] PCP - General 05/23/23
--- NOTE | 2024-09-06 07:37 | CT_ITS ---
The [address] [address] Patient Name: LISSY GATES MRN: [id number] date: 1960 Sex: M Assigned Patient Location: CT Current Patient Location: CT Accession/Order Number: [id number] Exam Date: 09/06/2024 08:37 Report Date: 09/06/2024 08:51 At the request of: RANI JULES DO Procedure: CT lung screening low-dose LOW-DOSE SCREENING CHEST CT WITHOUT CONTRAST COMPARISON: 08/29/2023 CLINICAL DATA: Smoker with 20 year history of tobacco use. Spiral axial unenhanced images were obtained through the chest. Images were reviewed using both narrow and wide window settings. This CT exam was performed using one or more following dose reduction techniques: Automated exposure control, adjustment of the mA and/or kV according to patient size, or use of iterative reconstruction technique. The heart is normal in size. No pericardial effusion is present. There is minimal coronary disease. The ascending aorta remains ectatic measuring 4 cm in diameter. There are calcified precarinal and right hilar lymph nodes compatible with granulomatous disease. An old left rib fractures again noted. There is apical scarring, left greater than right. Additional minimal scarring or atelectasis is present. A small developing area with somewhat tree in bud appearance is present at the superior segment of the left lower lobe. No other consolidation, pleural effusion or pneumothorax is seen. A tiny subpleural nodule is again visualized at the left lower lobe. There is still a cluster of few tiny nodules at the right upper lobe. Bilateral calcified granulomas are also seen. There are airspace lucencies compatible with obstructive lung disease. Limited cuts through the upper abdomen show no contributory findings. CT/CT lung screening low-dose IMPRESSION: OBSTRUCTIVE LUNG DISEASE. GRANULOMATOUS CHANGES. SIMILAR TINY PULMONARY NODULES. MINIMAL PARENCHYMAL CHANGE AT THE SUPERIOR SEGMENT OF THE LEFT LOWER LOBE THAT MIGHT BE INFECTIOUS OR INFLAMMATORY. Lung RADS category 2 - benign Twelve-month low-dose CT follow-up suggested. Impression dictated by: Gia Killian M.D. 09/06/2024 8:51 AM Dictation Location: [place] [address] Electronically authenticated by: [id number] Date: 09/06/2024 08:51
== END 2024-09-06 07:35 | disposition home or self-care (01) ==
LOC: CT 07:34
PROVIDERS: PCP Family Medicine; Visit Provider Internal Medicine
DX: R91.8 Other nonspecific abnormal finding of lung field (principal); Z87.891 Personal history of nicotine dependence; Z12.2 Encounter for screening for malignant neoplasm of respiratory organs; J44.9 Chronic obstructive pulmonary disease, unspecified
CPT/HCPCS: 71271

== ENCOUNTER 2024-09-08 07:41 | Outpatient (OUT) | payer OTHER, SELFPAY ==
--- NOTE | 2024-09-08 08:00 | CA_ITS ---
Patient Name: LISSY GATES MR#: [id number] : 1960 Exam Date: 09/08/2024 Ordering Doctor: DR DONA MAYERS M.D. ECHOCARDIOGRAM REPORT PROCEDURE: CA ECHO DOPPLER COMPLETE INDICATIONS: Dyspnea on exertion, heart failure with reduced ejection fraction, hypertension COMPARISON: None. DESCRIPTION: COMPLETE ECHOCARDIOGRAM Real-time transthoracic echocardiography with 2D, M-mode, spectral and color flow Doppler performed. QUALITY: Technical quality was good. LEFT VENTRICLE: Normal chamber size. Mild concentric left ventricular hypertrophy. Systolic function is at the lower limits of normal. LV EF: Low normal left ventricular ejection fraction, (50%). DIASTOLIC: Normal diastolic function. ATRIAL SEPTUM: Visually appears intact. LEFT ATRIUM: Normal chamber size. RIGHT ATRIUM: Normal chamber size. RIGHT VENTRICLE: Normal chamber size. Normal right ventricular systolic function. TRICUSPID VALVE: Normal mobility and thickness. No stenosis with trivial regurgitation. No evidence of pulmonary hypertension. RVSP 34 mmHg MITRAL VALVE: Normal mobility and thickness. No evidence of mitral valve stenosis. There is no mitral annular calcification. Trivial mitral regurgitation. AORTIC VALVE: No visible sclerosis. Normal leaflet mobility. No evidence of aortic valve stenosis. No aortic regurgitation. AORTIC ROOT: Normal diameter and appearance, measuring 3.2 cm. PULMONIC VALVE: Normal thickness and mobility. No stenosis. No regurgitation. PERICARDIUM: No evidence of pericardial effusion. IVC: Collapses with inspirations. PLEURA: CONCLUSION: 1. Mild concentric left ventricular hypertrophy with low normal systolic function. LVEF is estimated at 50%. 2. Normal right ventricular size and systolic function. 3. No significant valvular dysfunction. 4. Normal right sided pressures. Adult Echocardiography Procedure Report Left Ventricle LVEDD (3.7 - 5.6 cm): 4.97 cm LVESD (2.2 - 4.0 cm): 3.81 cm LVIVS thickness (0.6 - 1.2 cm): 1.25 cm LVPW thickness (0.5 - 1.0 cm): 1.10 cm e': 0.07 m/s E - e': 5.07 LVOT Max Gradient: 1.29 mm[Hg] LVOT Area (cm2): 0.57 m/s Peak Velocity (LVOT): 0.57 m/s LVOT Diameter 2.46 cm Left Atrium LA Volume Index (2D A2C): 22.46 ml/m2 Left Atrium Systolic Dimension: 3.11 cm Mitral Valve MV E to A Ratio: 0.72 Mitral Valve A-Wave Peak Velocity: 0.51 m/s Mitral Valve E-Wave Peak Velocity: 0.36 m/s Right Ventricle Aorta AO Root Diam: 3.20 cm Aortic Valve AoV Area (Peak Florentin): 2.97 cm2, 2.97 cm2 Peak Velocity(Antegrade Flow): 0.91 m/s Peak Gradient(Antegrade Flow): 3.33 mm[Hg] Tricuspid Valve Peak Velocity (Regurgitant Flow): 2.78 m/s Pulmonic Valve Peak Gradient: 1.69 mm[Hg], 1.38 mm[Hg] Right Atrium Right Atrium Systolic Pressure: 29.83 ml, 29.83 ml Dictated by: Tino Coughlin M.D. on 09/08/2024 at 18:38 Approved by: Tino Coughlin M.D. on 09/08/2024 at 18:42
--- OUTSIDE RECORDS SUMMARY | 2024-09-08 08:01 | XMS_ITS | CCD ---
Author Organization [facility] CliniSyri Care Team Providers Care Senior Audit Manager Name Role Phone BRUCE, DR GALO Primary [...] Consulting Unavailable Gary Beltrán MD Attending Provider [phone] Gary Beltrán Admitting Unavailable Gary Beltrán Attending Unavailable Unavailable Primary Care Provider UnavailTRACEY West Attending Unavailable TRACEY DAVID Attending Unavailable TRACEY DAVID Attending Unavailable Medications Current Medications Medication Drug Class(es) Dates Sig (Normalized) Sig (Original) [id number] 200 actuat albuterol 0.09 mg/actuat metered dose [...] Facil ity Office Visiton 08-18-2024 Follow-up visit [id number] Lissy Samuel 1960 M Date Provider Department Center 08/18/2024 Skip-TRACEY DAVID CARD Valente Eric Family History Problem Relation Age of Onset No Known Problems Mother No Known Problems Father Coronary artery disease Father's Brother Family Status - Relation Status Age at Mother Alive Father Alive Sister Alive Brother Alive Father's Brother Level of Service:91258 [place] OFFICE/OUTPATIENT ESTABLISHED MOD MDM 30 MIN Normal [facility] Danny 02-25-2024 L Specimen: [id number] Received: 02/25/24 Status: RENNY Marcial Num: [id number] Spec Type: Surgical Subm Dr: Gary Beltrán MD Tissues: A Skin Cyst (FOREHEAD) Procedures: Tanya DUCKWORTH/Jesica L3 Age/ Patient Sex Location Account Attending Physician Lissy Samuel/M CIARAN [id number] Gary Bletrán MD SPEC NUM: [id number] RECD: 02/25/24 STATUS: RENNY MARCIAL NUM: [id number] HARLEEN: 02/25/[address]: Gary Beltrán MD ENTERED: 02/25/[address] [facility] [address]: SPEC TYPE: Surgical DEPT: S ENTERED BY: [id number] REC BY: [id number] ORDERED: HE, Gross/Micro L3 ORDERED: HE, Gross/Micro [...] submitted in a single cassette. (1, ns, [id number]) CPT Codes 07077 Specimen: [id number] Received: 02/25/24 Status: RENNY Camejoeaston Num: [id number] Spec Type: Surgical Subm Dr: Gary Beltrán MD Tissues: A Skin Cyst (FOREHEAD) Procedures: GUCCI, Gross/Micro L3 Patient: Lissy Samuel [id number] (Continued) Signed (signature on file) Lebron Purcell MD 02/26/24 152 Normal [facility] Office Visiton 02-18-2024 Follow-up visit [id number] JimmieLissy 1960 M [facility] Provider Department Center 02/18/2024 TRACEY COLE Family History Problem Relation Age of Onset No Known Problems Mother No Known Problems Father Coronary artery disease Father's Brother Family Status - Relation Status Age at Mother Father Father's Brother Level of Service:50494 [place] OFFICE/OUTPATIENT ESTABLISHED MOD MDM 30 MIN Normal [facility] Office Visiton 09-02-2023 Follow-up visit [id number] JimmieLissy prescott 1960 [facility] Provider Department Center 09/02/2023 TRACEY COLE Family History Problem Relation Age of Onset No Known Problems Mother No Known Problems Father Coronary artery disease Father's Brother Family Status - Relation Status Age at Mother Father Father's Brother Level of Service:17295 [place] OFFICE/OUTPATIENT ESTABLISHED MOD MDM 30 MIN Normal [facility] Orders Onlyon 08-29-2023 Orders Only [id number] Lissy Samuel 1960 [facility] Provider Department Center 08/29/2023 [id number], HISTORICAL BH CARD [facility] Family History Problem Relation Age of Onset No Known Problems Mother No Known Problems Father Coronary artery disease Father's Brother Family Status - Relation Status Age at Mother Father Father's Brother Normal [facility] Covid-19 PCR (CVDTBH)on 10-06 SARS-CoV-2 (COVID-19) RNA FAIZAN+probe Ql (Unsp spec) Not detected Normal NOT DETECTED [facility] Comment on above: Result Comment: This test is not yet approved or cleared by the [place] FDA. When there are no FDA-approved or cleared tests available, and other criteria are met, FDA can make tests available under an emergency access mechanism called an Emergency Use Authorization (EUA). The EUA for this test is supported by the [place] of Health and Human Service's (HHS's) declaration [...] consistent with SARS-CoV-2. Performed By: #### B YARROW GATHERER, CMP, TROP #### [facility] [address] [place] [address] Katarina Nielsen SYMPTOMATIC COVID-19 ANTIGEN on 10-24-2020 EUA Statement SEE BELOW Normal [facility] Comment on above: Result Comment: This [...] is revoked sooner. Performed By: #### B YARROW GATHERER, CMP, TROP #### [facility] [address] [place] [address] Katarina Nielsen SARS-CoV-2 (COVID-19) RNA FAIZAN+probe Ql (Unsp spec) Negative Normal NEGATIVE [facility] Comment on above: Performed By: #### B YARROW GATHERER, CMP, TROP #### [facility] [address] [place] [address] Katarinavictoria Nielsen BNPon 02-08-2020 Natriuretic peptide B (Bld) [Mass/Vol] 228.0 pg/mL Normal <=900.0 [facility] Comment on above: Performed By: #### B YARROW GATHERER, CMP, TROP #### [facility] [address] [place] [address] Katarina Gia CBC AUTO DIFFon 02-08-2020 BASO # 0.1 103/ul Normal 0.0-0.1 [facility] [place] Comment on above: Performed By: #### B YARROW GATHERER, CMP, TROP #### [facility] [address] [place] [address] Katarina Gia Basophils/100 WBC (Bld) 0.7 % Normal 0.2-2.0 [facility] Comment on above: Performed By: #### B YARROW GATHERER, CMP, TROP #### [facility] [address] [place] [address] Katarina Gia EO # 0.1 103/ul Normal 0.0-0.7 [facility] Comment on above: Performed By: #### B YARROW GATHERER, CMP, TROP #### [facility] [address] [place] [address] Katarina Gia Eosinophils/100 WBC (Bld) 0.6 % Critically low 0.9-7.0 [facility] Comment on above: Performed By: #### B YARROW GATHERER, CMP, TROP #### [facility] [address] [place], [place] [address] Katarina Gia Erythrocyte distribution width (RBC) [Ratio] 14.0 % Normal 11.0-15.0 [facility] Comment on above: Performed By: #### B YARROW GATHERER, CMP, TROP #### [facility] [address] [place] [address] Katarina Gia Hematocrit (Bld) [Volume fraction] 45.7 % Normal 42.0-54.0 [facility] Comment on above: Performed By: #### B YARROW GATHERER, CMP, TROP #### [facility] [address] [place] [address] Katarina Gia Hemoglobin (Bld) [Mass/Vol] 15.1 g/dL Normal 14.0-18.0 [facility] Comment on above: Performed By: #### B YARROW GATHERER, CMP, TROP #### [facility] [address] [place] [address] Katarina Gia IG # 0.02 10e3/ul Normal 0.00-0.03 [facility] Comment on above: Performed By: #### B YARROW GATHERER, CMP, TROP #### [facility] [address] [place] [address] Katarina Gia IG % 0.2 % Normal 0.0-0.5 [facility] Comment on above: Performed By: #### B YARROW GATHERER, CMP, TROP #### [facility] [address] [place] [address] Katarina Gia LYMPH # 1.7 103/ul Normal 1.2-3.8 [facility] Comment on above: Performed By: #### B YARROW GATHERER, CMP, TROP #### [facility] [address] [place] [address] Katarina Gia Lymphocytes/100 WBC (Bld) 16.7 % Critically low 20.5-60.0 [facility] Comment on above: Performed By: #### B YARROW GATHERER, CMP, TROP #### [facility] [address] [place] [address] Katarina Gia MANUAL DIFF REQ NO Normal [facility] Comment on above: Performed By: #### B YARROW GATHERER, CMP, TROP #### [facility] [address] [place], [place] [phone] Katarina Gia MCH (RBC) [Entitic mass] 29.6 pg Normal 25.9-34.0 [facility] Comment on above: Performed By: #### B YARROW GATHERER, CMP, TROP #### [facility] [address] [place], [place] [phone] Katarinavictoria Nielsen MCHC (RBC) [Mass/Vol] 33.0 g/dL Normal 29.9-35.2 [facility] Comment on above: Performed By: #### B YARROW GATHERER, CMP, TROP #### [facility] [address] [place], [place] [phone] Katarina Gia MCV (RBC) [Entitic vol] 89.6 fL Normal 80.0-94.0 [facility] Comment on above: Performed By: #### B YARROW GATHERER, CMP, TROP #### [facility] [address] [place] [address] Katarina Gia MONO # 1.2 103/ul Critically high 0.3-0.8 [facility] Comment on above: Performed By: #### B YARROW GATHERER, CMP, TROP #### [facility] [address] [place], [place] [phone] Katarina Gia Monocytes/100 WBC (Bld) 11.4 % Normal 1.7-12.0 [facility] Comment on above: Performed By: #### B YARROW GATHERER, CMP, TROP #### [facility] [address] [place], [place] [phone] Katarina Gia NEUT # 7.1 103/ul Critically high 1.4-6.5 [facility] Comment on above: Performed By: #### B YARROW GATHERER, CMP, TROP #### [facility] [address] [place], [place] [phone] Katarina Gia Neutrophils/100 WBC (Bld) 70.4 % Normal 43.0-75.0 [facility] Comment on above: Performed By: #### B YARROW GATHERER, CMP, TROP #### [facility] [address] [place], [place] [phone] Katarina Gia Platelet mean volume (Bld) [Entitic vol] 9.5 fL Normal 9.5-13.5 [facility] Comment on above: Performed By: #### B YARROW GATHERER, CMP, TROP #### [facility] [address] [place], [place] [address] Katarina Gia PLT 339 103/ul Normal 150-450 [facility] Comment on above: Performed By: #### B YARROW GATHERER, CMP, TROP #### [facility] [address] [place], [place] [address] Katarina Gia RBC 5.10 106/ul Normal 4.70-6.10 [facility] Comment on above: Performed By: #### B YARROW GATHERER, CMP, TROP #### [facility] [address] [place], [place] [address] Katarina Gia WBC 10.1 103/ul Normal 4.0-11.0 [facility] Comment on above: Performed By: #### B YARROW GATHERER, CMP, TROP #### [facility] [address] [place], [place] [address] Katarina Nielsen CTA CHEST WO W CONon [...] ANTONIO REDD Date: 2020-02-08 14:04 Normal [facility] PROF 14(COMP METB)on 020 Albumin [Mass/Vol] 3.7 g/dL Normal 3.5-5.0 [facility] Comment on above: Performed By: #### B YARROW GATHERER, CMP, TROP #### [facility] [address] [place], [place] [address] Katarina Gia Albumin/Globulin [Mass ratio] 1.1 {ratio} Normal [facility] Comment on above: Performed By: #### B YARROW GATHERER, CMP, TROP #### [facility] [address] [place], [place] [address] Katarina Gia ALP [Catalytic activity/Vol] 72 U/L Normal 38-126 [facility] Comment on above: Performed By: #### B YARROW GATHERER, CMP, TROP #### [facility] [address] [place] [id number] Katarina Gia ALT [Catalytic activity/Vol] 43 U/L Normal 21-72 [facility] Comment on above: Performed By: #### B YARROW GATHERER, CMP, TROP #### [facility] [address] [place], [place] [address] Katarina Gia Anion gap [Moles/Vol] 13.1 mmol/L Normal [facility] Comment on above: Performed By: #### B YARROW GATHERER, CMP, TROP #### [facility] [address] [place], [place] [address] Katarina Gia AST [Catalytic activity/Vol] 31 U/L Normal 17-59 [facility] Comment on above: Performed By: #### B YARROW GATHERER, CMP, TROP #### [facility] [address] [place], [place] [address] Katarina Gia Bilirubin [Mass/Vol] 0.5 mg/dL Normal 0.2-1.3 [facility] Comment on above: Performed By: #### B YARROW GATHERER, CMP, TROP #### [facility] [address] [place], [place] [address] Katarina Gia Calcium [Mass/Vol] 9.2 mg/dL Normal 8.4-10.2 [facility] Comment on above: Performed By: #### B YARROW GATHERER, CMP, TROP #### [facility] [address] [place] [phone] Katarina Gia Chloride [Moles/Vol] 96 mmol/L Critically low 98-107 [facility] Comment on above: Performed By: #### B YARROW GATHERER, CMP, TROP #### [facility] [address] [place] [address] Katarina Gia CO2 [Moles/Vol] 27.0 mmol/L Normal 22.0-30.0 [facility] Comment on above: Performed By: #### B YARROW GATHERER, CMP, TROP #### [facility] [address] [place] [address] Katarina Gia Creatinine [Mass/Vol] 0.88 mg/dL Normal 0.66-1.25 [facility] Comment on above: Performed By: #### B YARROW GATHERER, CMP, TROP #### [facility] [address] [place] [address] Katarina Gia EGFR-AF GERMAN >60 Normal >=60 [facility] Comment on above: Performed By: #### B YARROW GATHERER, CMP, TROP #### [facility] [address] [place] [phone] Katarina Gia EGFR-NON AF GERMAN >60 Normal >=60 [facility] Comment on above: Performed By: #### B YARROW GATHERER, CMP, TROP #### [facility] [address] [place] [phone] Katarina Gia Globulin (S) [Mass/Vol] 3.5 g/dL Normal [facility] Comment on above: Performed By: #### B YARROW GATHERER, CMP, TROP #### [facility] [address] [place] [address] Katarina Gia Glucose [Mass/Vol] 93 mg/dL Normal 74-106 [facility] Comment on above: Performed By: #### B YARROW GATHERER, CMP, TROP #### [facility] [address] [place] [address] Katarina Gia Potassium [Moles/Vol] 4.1 mmol/L Normal 3.4-5.0 [facility] Comment on above: Performed By: #### B YARROW GATHERER, CMP, TROP #### [facility] [address] [place] [address] Katarina Gia Protein [Mass/Vol] 7.2 g/dL Normal 6.1-8.2 [facility] Comment on above: Performed By: #### B YARROW GATHERER, CMP, TROP #### [facility] [address] [place] [address] Katarina Gia Sodium [Moles/Vol] 132 mmol/L Critically low 137-145 [facility] Comment on above: Performed By: #### B YARROW GATHERER, CMP, TROP #### [facility] [address] [place] [address] Katarina Gia Urea nitrogen [Mass/Vol] 13.0 mg/dL Normal 9.0-20.0 [facility] Comment on above: Performed By: #### B YARROW GATHERER, CMP, TROP #### [facility] [address] [place] [address] Katarina Gia Urea nitrogen/Creatinin e [Mass ratio] 14.8 mg/mg Normal [facility] Comment on above: Performed By: #### B YARROW GATHERER, CMP, TROP #### [facility] [address] [place] [address] Katarina Gia PROTIMEon 02-08-2020 INR Coag (PPP) [Relative time] 0.97 {INR} Normal [facility] Comment on above: Performed By: #### B YARROW GATHERER, CMP, TROP #### [facility] [address] [place] [address] Katarina Gia INR GUIDELINES SEE BELOW Normal [facility] Comment on above: Result Comment: TEENA RED INR: 2.0 - 3.0 CONDITIONS NOT LISTED BELOW 2.5 - 3.5 FOR PROSTHETIC HEART VALVE REPLACEMENT 2.5 - 3.5 RECURRENT THROMBOSIS Performed By: #### B YARROW GATHERER, CMP, TROP #### [facility] [address] [place] [address] Katarina Gia PT Coag (PPP) [Time] 10.3 s Normal 9.0-11.6 [facility] Comment on above: Performed By: #### B YARROW GATHERER, CMP, TROP #### [facility] [address] [place] [address] Katarina Nielsen PT NORMAL PLEASE NOTE: NORMAL RANGE CHANGE 12-23-2013 DUE TO REAGENT LOT CHANGE Normal [facility] Comment on above: Performed By: #### B YARROW GATHERER, CMP, TROP #### [facility] [address] [place] [address] Katarina Nielsen PTTon 02-08-2020 aPTT Coag (Bld) [Time] 27.2 s Normal 22.3-36.2 [facility] Comment on above: Performed By: #### B YARROW GATHERER, CMP, TROP #### [facility] [address] [place] [address] Katarina Nielsen PTT NORMAL PLEASE NOTE: NORMAL RANGE CHANGE 03-01-2015 DUE TO REAGENT LOT CHANGE Normal [facility] Comment on above: Performed By: #### B YARROW GATHERER, CMP, TROP #### [facility] [address] [place] [address] Katarina Gia Rapid Covid-19 PCRon 020 [employer] LDT Info SEE BELOW Normal [facility] Comment on above: Result Comment: This test is not yet approved or cleared by the [place] Food and Drug Administration (FDA) . This test was developed by [employer], [facility]. The performance characteristics of this test were validated by [facility]. The results are not intended to be used as the sole means for clinical diagnosis or patient management decisions. [facility] is authorized under Clinical Laboratory Improvement Amendments (CLIA) to perform high-complexity testing. When diagnostic testing is negative, the possibility of a false negative should be considered in the context of a patients recent exposures and the presence of clinical signs and symptoms consistent with SARS-CoV-2. Performed By: #### B YARROW GATHERER, CMP, TROP #### [facility] [address] [place] [address] [facility] SARS-[facility]-2 (COVID-19) RNA FAIZAN+probe Ql (Unsp spec) Not detected Normal NOT DETECTED [facility] Comment on above: Result Comment: . Performed By: #### B YARROW GATHERER, CMP, TROP #### [facility] [address] [place] [address] Katarina Nielsen TROPONIN - Ion 02-08-2020 TROP <0.012 Normal <=0.034 [facility] Comment on above: Performed By: #### B YARROW GATHERER, CMP, TROP #### [facility] [address] [place] [address] Katarina Gia TROPONIN RANGE SEE BELOW Normal [facility] Comment on above: Result Comment: <0.0 34 ng/ml NEGATIVE 0.034-0.119 INDETERMINATE 0.120 AMI CUT OFF Performed By: #### B YARROW GATHERER, CMP, TROP #### [facility] [address] [place] [address] Katarina Gia TROP <0.012 Normal <=0.034 [facility] Comment on above: Performed By: #### B YARROW GATHERER, CMP, TROP #### [facility] [address] [place] [address] Katarina Gia TROPONIN RANGE SEE BELOW Normal [facility] Comment on above: Result Comment: <0.0 34 ng/ml NEGATIVE 0.034-0.119 INDETERMINATE 0.120 AMI CUT OFF Performed By: #### B YARROW GATHERER, CMP, TROP #### [facility] [address] [place] [address] Katarinavictoria Nielsen XR CHEST 1 Von 02-08-2020 [...] AILYN ROSE Date: 2020-02-08 12:14 Normal [facility] BNPon 02-03-2020 Natriuretic peptide B (Bld) [Mass/Vol] 81.0 pg/mL Normal <=900.0 [facility] Comment on above: Performed By: #### C MP, T4, TSH, BNP, FT3 #### [facility] [address] [place] [address] Katarina Gia CBC AUTO DIFFon 02-03-2020 BASO # 0.1 103/ul Normal 0.0-0.1 [facility] Comment on above: Performed By: #### B YARROW GATHERER, CMP, TROP #### [facility] [address] [place] [address] Katarina Gia Basophils/100 WBC (Bld) 0.9 % Normal 0.2-2.0 [facility] Comment on above: Performed By: #### B YARROW GATHERER, CMP, TROP #### [facility] [address] [place] [address] Katarina Gia EO # 0.1 103/ul Normal 0.0-0.7 [facility] Comment on above: Performed By: #### B YARROW GATHERER, CMP, TROP #### [facility] [address] [place] [address] Katarina Gia Eosinophils/100 WBC (Bld) 0.9 % Normal 0.9-7.0 [facility] Comment on above: Performed By: #### B YARROW GATHERER, CMP, TROP #### [facility] [address] [place] [address] Katarina Gia Erythrocyte distribution width (RBC) [Ratio] 14.2 % Normal 11.0-15.0 [facility] Comment on above: Performed By: #### B YARROW GATHERER, CMP, TROP #### [facility] [address] [place] [address] Katarina Gia Hematocrit (Bld) [Volume fraction] 45.1 % Normal 42.0-54.0 [facility] Comment on above: Performed By: #### B YARROW GATHERER, CMP, TROP #### [facility] [address] [place] [address] Katarina Gia Hemoglobin (Bld) [Mass/Vol] 14.3 g/dL Normal 14.0-18.0 [facility] Comment on above: Performed By: #### B YARROW GATHERER, CMP, TROP #### [facility] [address] [place] [address] Katarina Gia IG # 0.04 10e3/ul Critically high 0.00-0.03 [facility] Comment on above: Performed By: #### B YARROW GATHERER, CMP, TROP #### [facility] [address] [place], [place] [address] Katarinavictoria Nielsen IG % 0.5 % Normal 0.0-0.5 [facility] Comment on above: Performed By: #### B YARROW GATHERER, CMP, TROP #### [facility] [address] [place] [phone] Katarina Gia LYMPH # 1.9 103/ul Normal 1.2-3.8 [facility] Comment on above: Performed By: #### B YARROW GATHERER, CMP, TROP #### [facility] [address] [place] [phone] Katarina Nielsen Lymphocytes/100 WBC (Bld) 24.5 % Normal 20.5-60.0 [facility] Comment on above: Performed By: #### B YARROW GATHERER, CMP, TROP #### [facility] [address] [place] [phone] Katarina Nielsen MANUAL DIFF REQ NO Normal [facility] Comment on above: Performed By: #### B YARROW GATHERER, CMP, TROP #### [facility] [address] [place] [phone] Katarina Nielsen MCH (RBC) [Entitic mass] 28.6 pg Normal 25.9-34.0 [facility] Comment on above: Performed By: #### B YARROW GATHERER, CMP, TROP #### [facility] [address] [place] [phone] Katarina Nielsen MCHC (RBC) [Mass/Vol] 31.7 g/dL Normal 29.9-35.2 [facility] Comment on above: Performed By: #### B YARROW GATHERER, CMP, TROP #### [facility] [address] [place] [phone] Katarina Nielsen MCV (RBC) [Entitic vol] 90.2 fL Normal 80.0-94.0 [facility] Comment on above: Performed By: #### B YARROW GATHERER, CMP, TROP #### [facility] [address] [place] [phone] Katarina Nielsen MONO # 1.0 103/ul Critically high 0.3-0.8 [facility] Comment on above: Performed By: #### B YARROW GATHERER, CMP, TROP #### [facility] [address] [place] [address] Katarina Gia Monocytes/100 WBC (Bld) 12.4 % Critically high 1.7-12.0 [facility] Comment on above: Performed By: #### B YARROW GATHERER, CMP, TROP #### [facility] [address] [place] [address] Katarina Gia NEUT # 4.8 103/ul Normal 1.4-6.5 [facility] Comment on above: Performed By: #### B YARROW GATHERER, CMP, TROP #### [facility] [address] [place] [address] Katarina Gia Neutrophils/100 WBC (Bld) 60.8 % Normal 43.0-75.0 [facility] [place] Comment on above: Performed By: #### B YARROW GATHERER, CMP, TROP #### [facility] [address] [place] [address] Katarina Gia Platelet mean volume (Bld) [Entitic vol] 9.3 fL Critically low 9.5-13.5 [facility] [place] Comment on above: Performed By: #### B YARROW GATHERER, CMP, TROP #### [facility] [address] [place] [address] Katarina Gia PLT 323 103/ul Normal 150-450 [facility] Comment on above: Performed By: #### B YARROW GATHERER, CMP, TROP #### [facility] [address] [place] [address] Katarina Gia RBC 5.00 106/ul Normal 4.70-6.10 [facility] Comment on above: Performed By: #### B YARROW GATHERER, CMP, TROP #### [facility] [address] [place] [address] Katarina Gia WBC 7.9 103/ul Normal 4.0-11.0 [facility] Comment on above: Performed By: #### B YARROW GATHERER, CMP, TROP #### [facility] [address] [place] [address] Katarina Gia FREE T3on 02-03-2020 Free T3 [Mass/Vol] 2.89 pg/mL Normal 2.77-5.27 [facility] Comment on above: Performed By: #### C MP, T4, TSH, BNP, FT3 #### [facility] [address] [place], [place] [id number] Katarina Nielsen PROF 14(COMP METB)on 020 Albumin [Mass/Vol] 3.8 g/dL Normal 3.5-5.0 [facility] Comment on above: Performed By: #### C MP, T4, TSH, BNP, FT3 #### [facility] [address] [place], [place] [id number] Katarina Nielsen Albumin/Globulin [Mass ratio] 1.2 {ratio} Normal [facility] [place] Comment on above: Performed By: #### C MP, T4, TSH, BNP, FT3 #### [facility] [address] [place] [address] Katarina Nielsen ALP [Catalytic activity/Vol] 73 U/L Normal 38-126 [facility] [place] Comment on above: Performed By: #### C MP, T4, TSH, BNP, FT3 #### [facility] [address] [place] [address] Katarina Nielsen ALT [Catalytic activity/Vol] 52 U/L Normal 21-72 [facility] [place] Comment on above: Performed By: #### C MP, T4, TSH, BNP, FT3 #### [facility] [address] [place] [address] Katarina Nielsen Anion gap [Moles/Vol] 8.6 mmol/L Normal [facility] [place] Comment on above: Performed By: #### C MP, T4, TSH, BNP, FT3 #### [facility] [address] [place] [address] Katarina Nielsen AST [Catalytic activity/Vol] 35 U/L Normal 17-59 [facility] [place] Comment on above: Performed By: #### C MP, T4, TSH, BNP, FT3 #### [facility] [address] [place] [address] Katarina Nielsen Bilirubin [Mass/Vol] 0.4 mg/dL Normal 0.2-1.3 [facility] Comment on above: Performed By: #### C MP, T4, TSH, BNP, FT3 #### [facility] [address] [place] [address] Katarina Gia Calcium [Mass/Vol] 8.9 mg/dL Normal 8.4-10.2 [facility] Comment on above: Performed By: #### C MP, T4, TSH, BNP, FT3 #### [facility] [address] [place] [address] Katarina Gia Chloride [Moles/Vol] 101 mmol/L Normal 98-107 [facility] Comment on above: Performed By: #### C MP, T4, TSH, BNP, FT3 #### [facility] [address] [place] [address] Katarina Gia CO2 [Moles/Vol] 32.9 mmol/L Critically high 22.0-30.0 [facility] Comment on above: Performed By: #### C MP, T4, TSH, BNP, FT3 #### [facility] [address] [place] [address] Katarina Gia Creatinine [Mass/Vol] 0.81 mg/dL Normal 0.66-1.25 [facility] Comment on above: Performed By: #### C MP, T4, TSH, BNP, FT3 #### [facility] [address] [place] [address] Katarina Gia EGFR-AF GERMAN >60 Normal >=60 [facility] Comment on above: Performed By: #### C MP, T4, TSH, BNP, FT3 #### [facility] [address] [place] [address] Katarina Gia EGFR-NON AF GERMAN >60 Normal >=60 [facility] Comment on above: Performed By: #### C MP, T4, TSH, BNP, FT3 #### [facility] [address] [place] [address] Katarina Gia Globulin (S) [Mass/Vol] 3.3 g/dL Normal [facility] Comment on above: Performed By: #### C MP, T4, TSH, BNP, FT3 #### [facility] [address] [place] [address] Katarina Gia Glucose [Mass/Vol] 95 mg/dL Normal 74-106 [facility] Comment on above: Performed By: #### C MP, T4, TSH, BNP, FT3 #### [facility] [address] [place] [address] Katarina Gia Potassium [Moles/Vol] 4.5 mmol/L Normal 3.4-5.0 [facility] Comment on above: Performed By: #### C MP, T4, TSH, BNP, FT3 #### [facility] [address] [place] [address] Katarina Gia Protein [Mass/Vol] 7.1 g/dL Normal 6.1-8.2 [facility] Comment on above: Performed By: #### C MP, T4, TSH, BNP, FT3 #### [facility] [address] [place] [address] Katarina Gia Sodium [Moles/Vol] 138 mmol/L Normal 137-145 [facility] Comment on above: Performed By: #### C MP, T4, TSH, BNP, FT3 #### [facility] [address] [place] [address] Katarina Gia Urea nitrogen [Mass/Vol] 13.0 mg/dL Normal 9.0-20.0 [facility] [place] Comment on above: Performed By: #### C MP, T4, TSH, BNP, FT3 #### [facility] [address] [place] [address] Katarina Gia Urea nitrogen/Creatinin e [Mass ratio] 16.0 mg/mg Normal [facility] [place] Comment on above: Performed By: #### C MP, T4, TSH, BNP, FT3 #### [facility] [address] [place] [address] Katarina Gia T4on 02-03-2020 T4 [Mass/Vol] 6.20 ug/dL Normal 5.53-11.00 [facility] Comment on above: Performed By: #### C MP, T4, TSH, BNP, FT3 #### [facility] [address] [address] Katarina Nielsen TSHon 02-03-2020 TSH 5.662 uIU/mL Critically high 0.470-4.680 [facility] Comment on above: Performed By: #### B YARROW GATHERER, CMP, TROP #### [facility] [address] [place], [place] [address]en TSH RANGE SEE BELOW Normal [facility] [place] Comment on above: Result Comment: <0.3 4 UIU/ml HYPERTHYROID 0.34-5.60 UIU/ml EUTHYROID >5.60 UIU/ml HYPOTHYROID Performed By: #### B YARROW GATHERER, CMP, TROP #### [facility] [address] [place] [address] COVID-19 PCRon 02-02-2020 SARS-CoV-2 (COVID-19) RNA FAIZAN+probe Ql (Unsp spec) Not detected Normal Not Detected [facility] [place] Comment on above: Result Comment: This nucleic acid amplification test was developed and its performance characteristics determined by [employer]. Nucleic acid amplification tests include PCR and [...] in this assay. Performed By: #### B YARROW GATHERER, CMP, TROP #### [facility] [address] [place] [address] Katarina Nielsen NM STRESS/REST MULTIon 01-30 NM STRESS/REST MULTI Patient: LISSY SAMUEL Exam Date: 01/31/2020 : 1960 Gender:M Ordering : DR CLOVER REGAN . Admission #: [id number] Family : Order #: [id number] CLICK HERE TO VIEW EXAM RADIOLOGY REPORT [...] MD on 01/31/2020 at 14:31 Normal [facility] COVID-19 PCRon 01-21-2020 SARS-CoV-2 (COVID-19) RNA FAIZAN+probe Ql (Unsp spec) Not detected Normal Not Detected [facility] Comment on above: Result Comment: This nucleic acid amplification test was developed and its performance characteristics determined by [employer]. Nucleic acid amplification tests include PCR and [...] assay. Performed By: #### C VDPCR #### [facility] [address] [place] [address] Katarina Nielsen Encounters Encounter Date Encounter Type Care Provider Facility Start: 08-18-2024 End: 08-18-2024 ambulatory [facility] Start: 02-25-2024 End: 02-25-2024 ambulatory Gary Beltrán [facility] Work Phone: Start: 02-25-2024 End: 02-25-2024 Departed Referred Gary Beltrán MD Work Phone: [facility] Work Phone: Start: 02-18-2024 End: 02-18-2024 ambulatory [facility] Start: 12-05-2023 End: 12-05-2023 Office outpatient new 30 minutes Elis RODRÍGUEZ Work Phone: [facility] Comment on above: Epidermal inclusion cyst (Primary Dx) Start: 09-02-2023 End: 09-02-2023 ambulatory [facility] Start: 10-24-2020 End: 10-25-[address] CLOVER [...] Payer Managed Care HMO (unspecified) JEREMIE BARNARDMelaJAMAR [id number] 2020-Present [address] [place] [address] O [id number] 1960 Unknown [id number] 93 1960 Unknown [id number] 93 1960 Unknown [id number] 93 1960 Unknown [id number] 93 1960 Unknown [id number] 93 1960 Unknown [id number] 93 1960 Unknown [id number] 93 1959 Private Health Insurance [id number] 1959 Self-pay 1959 Unknown [id number] Unknown [id number] 31 Social History Date Type Detail Facility Tobacco smoking stat us NHIS Unknown if ever smoked [facility] Start: 02-26-2024 Sex Male (finding) [facility] Start: 1960 Sex Assigned At Male F [facility] Start: 12-05-2023 Tobacco smoking stat [facility] Ex-smoker [facility] History of tobacco use Current smoker [facility] History of tobacco use Cigarette Smoker N [facility] Start: 12-05-2023 Tobacco use and exposure Smokeless tobacco non-user [facility] Start: 12-05-2023 Alcoholic beverage intake Current drinker of alcohol (finding) [facility] Start: 12-05-2023 History of Social function [facility] Start: 12-05-2023 Tobacco use panel [facility] Start: 1960 Sex assigned at Not on file N [facility] Progress note 08-18-2024 Note Date & Type Note Facility 08-18-2024 Note [facility] Cardiology Clinic Note Chief Complaint: Patient here [...] time Follow-up with Dr. David in the [facility] in 2 months Follow-up with Dr. Clover Regan his primary care physician in [place] PROCEDURES: Ultrasound-guided access to the left radial [...] such as metoprolol. (more content not included)... [facility] Progress note 02-18-2024 Note Date & Type Note Facility 02-18-2024 Note [facility] Cardiology Clinic Note Chief Complaint: Patient here [...] time Follow-up with Dr. David in the [facility] in 2 months Follow-up with Dr. Clover Regan his primary care physician in [place] PROCEDURES: Ultrasound-guided access to the left radial [...] a week T (more content not included)... [facility] History of Present illness Narrative 12-05-2023 ANNE [...] any new/changing lesions documented in this encounter [facility] Progress note 09-02-2023 Note Date & Type Note Facility 09-02-2023 Note [facility] Cardiology Clinic Note Chief Complaint: Patient here [...] time Follow-up with Dr. David in the [facility] in 2 months Follow-up with Dr. Clover Regan his primary care physician in [place] PROCEDURES: Ultrasound-guided access to the left radial [...] problems arise Tracey David MD, MPH, FACC, [facility], [facility] Interventional Cardiology Pager Email: [email or web address] Evaluation note Note Date & Type Note Facility Evaluation note No assessment information availa [facility] Work Phone: Evaluation note Note Date [...] Plastic Surgery Diagnoses Epidermal inclusion cyst Procedures [place] OFFICE[facility]OUTPATIENT [facility] 60 MINUTES Elis Coleman PA [address] [place] [address] Gary Beltrán MD [address] [facility] [address] [place] [address] Referral ID Status Reason Start Date Expiration Date Visits Requested Visits Authorized [id number] Pending Review Specialty Services Required 12/05/2023 06/02/2024 [...] and content) DATE CREATED AUTHOR 11/10/2020 [facility] DATE CREATED AUTHOR AUTHOR'S ORGANIZ ATION 03/07/2024 [facility] DATE CREATED AUTHOR AUTHOR'S SHAY VALVERDE 08/19/2024 [facility] Care Teams (unrecognized sec tion and [...] BE BASED ON THE PRIMARY CLINICAL RECORDS. [employer] provides no warranty or guarantee of the accuracy or completeness of information in this document.
== END 2024-09-08 07:42 | disposition home or self-care (01) ==
LOC: CARD 07:41
PROVIDERS: PCP Family Medicine; Visit Provider Internal Medicine Interventional Cardiology
DX: R06.09 Other forms of dyspnea (principal); I50.22 Chronic systolic (congestive) heart failure; I10 Essential (primary) hypertension
CPT/HCPCS: 93306